=== PATIENT | male | born 1940 | race Hispanic/Latino ===

== ENCOUNTER 2017-11-18 17:20 | Emergency (ER) | payer MEDICARE, MEDICAID ==
[2017-11-18 17:21] VITALS: PULSE 120; BMI 15.3
[2017-11-18 17:32] VITALS: BP 95/56; PULSE 107; RESP 20; TEMP 97.8; O2SAT 100
--- NOTE | 2017-11-18 18:15 | C.PDOC ---
History Of Present Illness 77 y/o male, [place] the ER from [place], complaining of tenderness to the right heel. Patient was seen by podiatry and referred to [facility] ER for X- Ray. Patient reports that he has pain in his right heel when he stands for the past 3 days and the pain improves throughout the day. Patient denies having trauma. Time Seen by Provider: 11/18/17 17:38 Chief Complaint (Nursing): Lower Extremity Problem/Injury History Per: Patient History/Exam Limitations: no limitations Onset/Duration Of Symptoms: Days Current Symptoms Are (Timing): Still Present Severity: Moderate Past Medical History Vital Signs: Last Vital Signs Temp 97.8 F 11/18/17 17:23 Pulse 107 H 11/18/17 17:23 Resp 20 11/18/17 17:23 BP 95/56 L 11/18/17 17:23 Pulse Ox 100 11/18/17 18:15 - Medical History PMH: Atrial Fibrillation, CHF, COPD (emphysema (per CT/chest)), HTN, Hypothyroidism, Pulmonary Embolism Surgical History: Back Surgery, Tonsillectomy - [facility] Procedures ASSISTANCE WITH RESPIRATORY VENTILATION, 24-96 HRS, CPAP (10/10/15) DRAINAGE OF LEFT PLEURAL CAVITY, PERCUTANEOUS APPROACH (03/17/16) DRAINAGE OF RIGHT PLEURAL CAVITY, PERCUTANEOUS APPROACH (03/17/16) INSERTION OF ENDOTRACHEAL AIRWAY INTO TRACHEA, VIA OPENING (03/17/16) INTRODUCTION OF SERUM/TOX/VACCINE INTO MUSCLE, PERC APPROACH (03/17/16) PERFORMANCE OF CARDIAC OUTPUT, SINGLE, MANUAL (03/17/16) RESPIRATORY VENTILATION, 24-96 CONSECUTIVE HOURS (03/17/16) Family History: States: No Known Family Hx - Social History Hx Tobacco Use: Yes Hx Alcohol Use: Yes Hx Substance Use: No - Immunization History Hx Tetanus Toxoid Vaccination: No Hx Influenza Vaccination: No Hx Pneumococcal Vaccination: No Review Of Systems Except As Marked, All Systems Reviewed And Found Negative. Constitutional: Negative for: Fever, Chills Musculoskeletal: Positive for: Other (right heel pain) Physical Exam - Physical Exam Appears: Non-toxic, No Acute Distress Skin: Normal Color, Warm, Dry Head: Atraumatic, Normacephalic Eye(s): bilateral: Normal Inspection Nose: Normal Oral Mucosa: Moist Neck: Supple Chest: Symmetrical Cardiovascular: Rhythm Regular Respiratory: Normal Breath Sounds, No Rales, No Rhonchi, No Wheezing Extremity: Normal ROM, Tenderness (mild tenderness to right heel), Other ((-) edema to right heel) Pulses: Right Dorsalis Pedis: Normal Neurological/Psych: Oriented x3, Normal Speech ED Course And Treatment O2 Sat by Pulse Oximetry: 100 (RA) Pulse Ox Interpretation: Normal - Other Rad R heel X-Ray: Interpreted by Me (no fx/disloc) Reevaluation Time: 18:14 Reassessment Condition: Improved Medical Decision Making Medical Decision Making: normal R heel x-ray mild sts but NOT cellulitis ok to return to [place] Disposition Doctor Will See Patient In The: Office Counseled Patient/Family Regarding: Studies Performed, Diagnosis - Disposition Referrals: Mitchell Anderson MD [Staff Provider] - Disposition: HOME/ ROUTINE Disposition Time: 18:14 Condition: GOOD Additional Instructions: NORMAL R heel x-rays. ice packs 1/2 hour per hour as needed motrin/advil 400 mg every 6 hours as needed Follow-up with Podiatry as needed. Instructions: Heel Pain (Caused by Plantar Fasciitis) Forms: [employer] (Andorran) - Clinical Impression Clinical Impression: Pain of right heel - Scribe Statement The provider has reviewed the documentation as recorded by the Olivier Daly Provider Attestation: All medical record entries made by the Olivier were at my direction and personally dictated by me. I have reviewed the chart and agree that the record accurately reflects my personal performance of the history, physical exam, medical decision making, and the department course for this patient. I have also personally directed, reviewed, and agree with the discharge instructions and disposition.
--- NOTE | 2017-11-19 08:32 | RAD ---
PROCEDURE: Radiographs of the right calcaneus/hindfoot. HISTORY: R heel pain @ [facility]. no trauma COMPARISON: None available. TECHNIQUE: Frontal and lateral radiographs of the calcaneus. FINDINGS: Cortical discontinuity mid posterior calcaneus. Possible nondisplaced calcaneal fracture. This is only evident in the frontal view is not seen in the lateral projection. Consider further radiographic evaluation. No lytic or blastic osseous lesion. No calcaneal spur. IMPRESSION: Questionable nondisplaced calcaneal fracture. Consider further radiographic evaluation if clinically warranted.
== END 2017-11-18 21:01 | disposition home or self-care (01) ==
LOC: C.ER 17:20
DX: M79.671 Pain in right foot (principal)

== ENCOUNTER 2018-08-09 17:08 | Inpatient (IN) | payer MEDICARE, MEDICAID ==
[2018-08-09 17:10] VITALS: PULSE 120; BMI 15.3
[2018-08-09] MEDS ORDERED: Sodium Chloride 0.9% 500 ML IV ONE ×4 (17:36→18:39)
[2018-08-09 17:45] LABS: VENOUS BLOOD GAS BASE EXCESS -0.6 mmol/L (0.0-2.0); VENOUS BLOOD GAS PCO2 46 mmHg (40-60); VENOUS BLOOD GAS PO2 24 mm/Hg (30-55); VENOUS BLOOD PH 7.35 (7.32-7.43)
[2018-08-09] MEDS ORDERED: Vancomycin 1 GM 1 GM/250 ML BAG IV STA (17:46)
[2018-08-09] MEDS ORDERED: Cefepime 1 GM in Sodium Chloride 0.9% 50 ML IVPB ONE (17:47)
[2018-08-09] MEDS ORDERED: Vancomycin 1 GM 1 GM/250 ML BAG IVPB ONE (17:55)
--- NOTE | 2018-08-09 18:04 | C.PDOC ---
History Of Present Illness Patient sent from [place] for evaluation of left foot necrotic wound (left 2nd toe), apparently present for 4-5 days. Patient is c/o ingrown nail on first toe and very focused on this, denies any other issues or medical problems. He is a poor historian. PMHx - atrial fibrillation, PE, COPD, CHF, HTN, hypothyroidism Time Seen by Provider: 08/09/18 17:16 Chief Complaint (Nursing): Lower Extremity Problem/Injury History Per: Patient, Other ([place] records ) Past Medical History Reviewed: Historical Data, Nursing Documentation, Vital Signs Vital Signs: Last Vital Signs Temp 98.9 F 08/09/18 17:31 Pulse 138 H 08/09/18 17:31 Resp 22 08/09/18 17:31 BP 121/74 08/09/18 17:31 Pulse Ox 97 08/09/18 17:31 - Medical History PMH: Atrial Fibrillation, CHF, COPD (emphysema (per CT/chest)), HTN, Hypothyroidism, Pulmonary Embolism Surgical History: Back Surgery, Tonsillectomy - [facility] Procedures ASSISTANCE WITH RESPIRATORY VENTILATION, 24-96 HRS, CPAP (10/10/15) DRAINAGE OF LEFT PLEURAL CAVITY, PERCUTANEOUS APPROACH (03/17/16) DRAINAGE OF RIGHT PLEURAL CAVITY, PERCUTANEOUS APPROACH (03/17/16) INSERTION OF ENDOTRACHEAL AIRWAY INTO TRACHEA, VIA OPENING (03/17/16) INTRODUCTION OF SERUM/TOX/VACCINE INTO MUSCLE, PERC APPROACH (03/17/16) PERFORMANCE OF CARDIAC OUTPUT, SINGLE, MANUAL (03/17/16) RESPIRATORY VENTILATION, 24-96 CONSECUTIVE HOURS (03/17/16) Family History: States: No Known Family Hx - Social History Hx Tobacco Use: Yes Hx Alcohol Use: Yes Hx Substance Use: No - Immunization History Hx Tetanus Toxoid Vaccination: No Hx Influenza Vaccination: No Hx Pneumococcal Vaccination: No Physical Exam - Physical Exam Appears: Well, Non-toxic, Other (cranky mood, cachectic appearing ) Skin: Other (see extremity exam ) Head: Normacephalic Oral Mucosa: Moist Cardiovascular: Rhythm Irregular (tachycardic and irregularly irregular), No Murmur Respiratory: Normal Breath Sounds, No Rales, No Rhonchi, No Wheezing Gastrointestinal/Abdominal: Normal Exam, Bowel Sounds, Soft, No Tenderness Extremity: Other (left 2nd digit necrotic appearing and TTP, diffuse swelling and mild erythema of left foot, no palpable pedal pulses.) Pulses: Right Dorsalis Pedis: Absent Neurological/Psych: Oriented x3, Normal Sensation ED Course And Treatment - Laboratory Results Result Diagrams: 08/09/18 18:02 08/09/18 18:02 Lab Results: pO2 24 mm/Hg (30-55) L 08/09/18 17:40 VBG pH 7.35 (7.32-7.43) 08/09/18 17:40 VBG pCO2 46 mmHg (40-60) 08/09/18 17:40 VBG HCO3 22.9 mmol/L 08/09/18 17:40 VBG Total CO2 26.8 mmol/L (22-28) 08/09/18 17:40 VBG O2 Sat (Calc) 65.7 % (40-65) H 08/09/18 17:40 VBG Base Excess -0.6 mmol/L (0.0-2.0) L 08/09/18 17:40 VBG Potassium 4.9 mmol/L (3.6-5.2) 08/09/18 17:40 Sodium 133.0 mmol/l (132-148) 08/09/18 17:40 Chloride 100.0 mmol/L (98-107) 08/09/18 17:40 Glucose 127 mg/dl (75-110) H 08/09/18 17:40 Lactate 2.7 mmol/L (0.7-2.1) H 08/09/18 17:40 FiO2 21.0 % 08/09/18 17:40 ECG: Interpreted By Me, Viewed By Me (atrial fibrillation with RVR at 128bpm, normal axis, right axis deviation, T wave inversions III, aVF) ECG Interpretation: Abnormal O2 Sat by Pulse Oximetry: 97 (RA) Pulse Ox Interpretation: Normal Progress Note: Blood work, EKG, CXR, Xray of foot and CTA angio of abd/ileofem run off ordered. Patient given IV NS bolus, IV Vancomycin + Cefepime, PO tylenol. 6:45pm- Surgery resident spoken with and aware of consult. Patient pending CTA of abd with iliofem runoff. Reevaluation Time: 18:40 Reassessment Condition: Improved (Patient resting comfortably, heart rate improved, currently in 90s with IV fluids, pain medication.) - Physician Consult Information Physician Contacted: Mitchell Anderson Outcome Of Conversation: Spoke with PMD, patient has not had CTA angio of abd/leg yet - ordered. Would like Dr. Begum for vascular, Dr. Mcpherson for podiatry. Disposition - Disposition Disposition Time: 19:00 Condition: STABLE Forms: [employer] (Turkish) - Clinical Impression Clinical Impression: Skin ulcer of toe of left foot with necrosis of muscle
[2018-08-09 18:11] LABS: BASO # 0.1 K/uL (0.0-0.2); BASO % 0.6 % (0.0-2.0); EOS # 0.1 K/uL (0.0-0.7); EOS % 0.7 % (0.0-4.0); HEMOGLOBIN 11.2 g/dL (12.0-18.0); LYMPH # 1.6 K/uL (1.0-4.3); LYMPH % 17.9 % (20.0-40.0); MEAN CORPUSCULAR HGB CONC 32.6 g/dL (33.0-37.0); MEAN PLATELET VOLUME 7.7 fL (7.2-11.7); MONO # 0.7 K/uL (0.0-0.8); MONO % 7.5 % (0.0-10.0); NEUT # 6.5 K/uL (1.8-7.0); NEUT % 73.3 % (50.0-75.0); RBC 3.73 Mil/uL (4.40-5.90); RED CELL DISTRIBUTION WIDTH 16.1 % (11.5-14.5); WHITE BLOOD COUNT 8.9 K/uL (4.8-10.8)
[2018-08-09 18:17] LABS: INR 1.8; PROTHROMBIN TIME 19.9 SECONDS (9.7-12.2)
[2018-08-09 18:37] LABS: ALB/GLOB RATIO 1.2 (1.0-2.1); ALBUMIN 4.4 g/dL (3.5-5.0); AST/SGOT 25 U/L (17-59); BLOOD UREA NITROGEN 39 mg/dL (9-20); CALCIUM 10.4 mg/dl (8.6-10.4); GFR NON-AFRICAN AMERICAN 39
[2018-08-09 18:44] LABS: ALT/SGPT < 6 U/L (21-72)
[2018-08-09] MEDS ORDERED: Sodium Chloride 0.9% 1,000 ML IV ONE (20:29)
[2018-08-09] MEDS ORDERED: Iodixanol 320 mg/ml 150 ml Bottle IV ONE (20:34)
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
[2018-08-09] MEDS ORDERED: Sodium Chloride 0.9% 1,000 ML ONE (22:30)
[2018-08-09] MEDS ORDERED: Vancomycin 1 GM 1 GM/250 ML BAG IVPB STA (22:33)
[2018-08-09] MEDS ORDERED: Piperacillin/Tazobact 3.375 gm 100 ML IVPB STA (22:33)
[2018-08-09] MEDS ORDERED: oxyCODONE 10 mg ER Tab (oxyCONTIN) PO PRN (23:25)
[2018-08-09] MEDS ORDERED: Albuterol-Ipratrop 3 mg / 0.5 (3 ml) UD INH PRN (23:25)
--- NOTE | 2018-08-09 23:27 | CP.PCM.HP ---
History of Present Illness - History of Present Illness History of Present Illness: 78 year old male patient with PMH of A.fib, CHF, COPD, HTN, hypothyroidism and pulmonary embolism and surgical history of tonsillectomy. patient is sent from the [place] for evaluation of necrotic foot on 2nd left toe since 4-5 days with com plaint of ingrown toe nail on the first toe. patient did not give any other history. Present on Admission - Present on Admission Any Indicators Present on Admission: No Past Patient History - Infectious Disease Hx of Infectious Diseases: None - Past Medical History & Family History Past Medical History?: Yes - Past Social History Smoking Status: Light Smoker < 10 Cigarettes Daily - CARDIAC Hx Atrial Fibrillation: Yes Hx Congestive Heart Failure: Yes Hx Hypertension: Yes - PULMONARY Hx Chronic Obstructive Pulmonary Disease (COPD): Yes (emphysema (per CT/chest)) Hx Pulmonary Embolism: Yes - ENDOCRINE/METABOLIC Hx Hypothyroidism: Yes - MUSCULOSKELETAL/RHEUMATOLOGICAL Hx Falls: Yes - PSYCHIATRIC Hx Substance Use: No - SURGICAL HISTORY Hx Tonsillectomy: Yes - ANESTHESIA Hx Anesthesia: No Meds Home Medications: Home Medication List Medication Instructions Recorded Confirmed Type Docusate [Colace] 100 mg PO DAILY cap 08/16/18 Rx Famotidine [Pepcid] 20 mg PO DAILY tab 08/16/18 Rx Gabapentin [Neurontin] 100 mg PO BID cap 08/16/18 Rx Lactobacillus Acidophilus 1 cap PO BID cap 08/16/18 Rx [Lactobacillus] Levothyroxine [Synthroid] 75 mcg PO DAILY@0630 tab 08/16/18 Rx Magnesium Hydroxide [Milk Of 30 ml PO HS PRN udc 08/16/18 Rx Magnesia] Multivitamins [Hexavitamin] 1 tab PO DAILY tab 08/16/18 Rx Piperacillin/Tazobact 3.375 gm 3.375 gm IVPB Q8 #15 bag 08/16/18 Rx [Zosyn 3.375 in NS 100ml] Spironolactone [Aldactone] 50 mg PO DAILY tab 08/16/18 Rx Allergies/Adverse Reactions: Allergies Allergy/AdvReac Type Severity Reaction Status Date / Time No Known Allergies Allergy Verified 07/07/18 14:41 Results - Vital Signs Recent Vital Signs: Last Vital Signs Temp 98.9 F 08/09/18 17:31 Pulse 114 H 08/09/18 22:46 Resp 22 08/09/18 17:31 BP 110/40 L 08/09/18 22:46 Pulse Ox 96 08/09/18 22:46 - Labs Result Diagrams: 08/14/18 07:52 08/14/18 07:52 Labs: Laboratory Results - last 24 hr 08/09/18 08/09/18 08/09/18 17:40 17:43 18:00 WBC RBC Hgb Hct MCV MCH MCHC RDW Plt Count MPV Neut % (Auto) Lymph % (Auto) [place] % (Auto) Eos % (Auto) Baso % (Auto) Neut # (Auto) Lymph # (Auto) [place] # (Auto) Eos # (Auto) Baso # (Auto) PT INR APTT pO2 24 L VBG pH 7.35 VBG pCO2 46 VBG HCO3 22.9 VBG Total CO2 26.8 VBG O2 Sat (Calc) 65.7 H VBG Base Excess -0.6 L VBG Potassium 4.9 Sodium 133.0 Chloride 100.0 Glucose 127 H Lactate 2.7 H FiO2 21.0 Potassium Carbon Dioxide Anion Gap BUN Creatinine Est GFR ( Amer) Est GFR (Non-Af Amer) POC Glucose (mg/dL) 166 H Random Glucose Calcium Total Bilirubin AST ALT Alkaline Phosphatase Troponin I Total Protein Albumin Globulin Albumin/Globulin Ratio TSH 3rd Generation 1.10 Venous Blood Potassium 4.9 08/09/18 08/09/18 08/09/18 18:02 18:02 18:02 WBC 8.9 RBC 3.73 L Hgb 11.2 L Hct 34.3 L MCV 92.0 D MCH 30.0 MCHC 32.6 L RDW 16.1 H Plt Count 365 D MPV 7.7 Neut % (Auto) 73.3 Lymph % (Auto) 17.9 L [place] % (Auto) 7.5 Eos % (Auto) 0.7 Baso % (Auto) 0.6 Neut # (Auto) 6.5 Lymph # (Auto) 1.6 [place] # (Auto) 0.7 Eos # (Auto) 0.1 Baso # (Auto) 0.1 PT 19.9 H INR 1.8 APTT 37 H pO2 VBG pH VBG pCO2 VBG HCO3 VBG Total CO2 VBG O2 Sat (Calc) VBG Base Excess VBG Potassium Sodium 130 L Chloride 97 L Glucose Lactate FiO2 Potassium 4.9 Carbon Dioxide 24 Anion Gap 14 BUN 39 H Creatinine 1.7 H Est GFR ( Amer) 48 Est GFR (Non-Af Amer) 39 POC Glucose (mg/dL) Random Glucose 118 H D Calcium 10.4 Total Bilirubin 0.9 AST 25 ALT < 6 L D Alkaline Phosphatase 111 Troponin I < 0.0120 Total Protein 8.1 Albumin 4.4 Globulin 3.7 Albumin/Globulin Ratio 1.2 TSH 3rd Generation Venous Blood Potassium
[2018-08-09] MEDS ORDERED: Magnesium Hydroxide Susp 30 ml UD PO SCH (23:30)
[2018-08-10 00:01] LABS: VENOUS BLOOD GAS BASE EXCESS -4.8 mmol/L (0.0-2.0); VENOUS BLOOD GAS PCO2 44 mmHg (40-60); VENOUS BLOOD GAS PO2 31 mm/Hg (30-55)
[2018-08-10] MEDS: oxyCODONE 10 mg Immediate Release Tab PO PRN ×3 (00:34→11:15)
[2018-08-10] MEDS: Levothyroxine 75 MCG TAB PO SCH (06:07)
--- NOTE | 2018-08-10 07:55 | CP.PCM.PN ---
Subjective - Date & Time of Evaluation Date of Evaluation: 08/10/18 Time of Evaluation: 08:00 - Subjective Subjective: Surgery progress note for Dr. Begum Patient seen and examined at bedside. No overnight events reported. Objective - Vital Signs/Intake and Output Vital Signs (last 24 hours): Temp Pulse Resp BP Pulse Ox 97.3 F L 84 20 111/51 L 98 08/10/18 00:43 08/10/18 00:43 08/10/18 00:43 08/10/18 00:43 08/10/18 00:43 - Medications Medications: Current Medications Albuterol/Ipratropium (Duoneb 3 Mg/0.5 Mg (3 Ml) Ud) 3 ml INH Q6 PRN PRN Reason: Shortness of Breath Docusate Sodium (Colace) 1 mg PO DAILY [facility] Enoxaparin Sodium (Lovenox) 40 mg SC DAILY [facility] Famotidine (Pepcid) 20 mg PO BID [facility] Gabapentin (Neurontin) 100 mg PO BID [facility] Cefepime HCl 1 gm/ Dextrose 50 mls @ 100 mls/hr IVPB Q12H [facility]; Protocol Last Admin: 08/10/18 06:08 Dose: 100 mls/hr Vancomycin HCl 1 gm/ Sodium (Chloride) 250 mls @ 167 mls/hr IVPB Q24H [facility]; Protocol Levothyroxine Sodium (Synthroid) 75 mcg PO DAILY@0630 [facility] Last Admin: 08/10/18 06:07 Dose: 75 mcg Magnesium Hydroxide (Milk Of Magnesia) 30 ml PO Q24H [facility] Last Admin: 08/10/18 00:34 Dose: 30 ml Multivitamins (Hexavitamin) 1 tab PO DAILY [facility] Oxycodone HCl (Oxycodone Immediate Release Tab) 10 mg PO Q4H PRN PRN Reason: Pain, moderate (4-7) Last Admin: 08/10/18 05:53 Dose: 10 mg Oxycodone HCl (Oxycontin Extended Release Tab) 10 mg PO Q12 PRN PRN Reason: Pain, moderate (4-7) Stop: 08/12/18 23:26 Spironolactone (Aldactone) 50 mg PO DAILY [facility] - Labs Labs: 08/09/18 18:02 08/09/18 18:02 PT 19.9 SECONDS (9.7-12.2) H 08/09/18 18:02 INR 1.8 08/09/18 18:02 APTT 37 SECONDS (21-34) H 08/09/18 18:02 - Constitutional Appears: No Acute Distress - Head Exam Head Exam: NORMAL INSPECTION - Eye Exam Eye Exam: Normal appearance - Respiratory Exam Respiratory Exam: NORMAL BREATHING PATTERN - Cardiovascular Exam Additional comments: Irregular rate - GI/Abdominal Exam GI & Abdominal Exam: Soft, Normal Bowel Sounds. absent: Tenderness, Hyperactive Bowel Sounds - Extremities Exam Additional comments: DP pulses palpable b/l PT pulses not palpable dressing currently over L foot, clean, dry intact - Neurological Exam Neurological Exam: Alert, Awake, Oriented x3 - Psychiatric Exam Psychiatric exam: Normal Affect, Normal Mood - Skin Skin Exam: Dry, Normal Color, Warm Assessment and Plan - Assessment and Plan (Free Text) Assessment: 78yo M with PMHx of A fib, PE, UTI [facility] of left 2nd toe gangrene Plan: - CTA: multiple sections of stenosis on b/l LE - will discuss w/ patient of benefits/risk of angio vs AKA - d/w Dr. Kel Gee, PGY1
--- NOTE | 2018-08-10 08:13 | RAD ---
Date of service: 08/09/2018 HISTORY: admission COMPARISON: Portable chest 10/24/2015. FINDINGS: LUNGS: No acute consolidation bilaterally. PLEURA: Minimal residual or recurrent pleural effusions versus fibrosis at the bilateral costophrenic sulci. CARDIOVASCULAR: Calcific atherosclerotic changes are seen related to the thoracic aorta. Normal cardiac size. No pulmonary vascular congestion. OSSEOUS STRUCTURES: No significant abnormalities. VISUALIZED UPPER ABDOMEN: Normal. OTHER FINDINGS: None. IMPRESSION: Minimal bilateral pleural effusions versus fibrosis at both bases. No acute consolidation bilaterally. No pulmonary vascular congestion.
--- NOTE | 2018-08-10 08:20 | RAD ---
Date of service: 08/09/2018 PROCEDURE: Left Foot Radiographs. HISTORY: LEFT FOOT NECROTIC WOUND COMPARISON: None. FINDINGS: BONES: No acute fracture or destructive bony lesion identified. JOINTS: No subluxation. No dislocation. Degenerative cortical sclerosis appreciate throughout the joints of the forefoot midfoot and hindfoot, seen worst at the 1st metatarsophalangeal joint. SOFT TISSUES: Ossification of the insertion of the Achilles tendon is seen posterior to the calcaneus. [id number]-[id number] soft edema is seen in the forefoot dorsal soft tissues. OTHER FINDINGS: None. IMPRESSION: [id number] dorsal forefoot soft tissue edema. No acute fracture or dislocation. Degenerative joint changes seen throughout the left foot diffusely.
[2018-08-10] MEDS ORDERED: Enoxaparin 40 mg Syringe SC SCH (10:00)
[2018-08-10] MEDS: Multiple Vitamins Tab PO SCH (11:14)
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
--- NOTE | 2018-08-10 13:35 | CT ---
Date of service: 08/09/2018 PROCEDURE: CT Angiography Abdomen, Pelvis and Lower Extremity with Contrast HISTORY: LEFT FOOT NECROTIC WOUND COMPARISON: None available. TECHNIQUE: Technique: CT angiography of the abdomen, pelvis and bilateral lower extremities performed in the arterial phase of enhancement. Coronal and sagittal reformats, and well as rotating MIP images of the vessels generated at the workstation. Intravenous contrast dose: 150 milliliters Visipaque 320 Radiation dose: Total exam DLP = 925.07 mGy-cm. This CT exam was performed using one or more of the following dose reduction techniques: Automated exposure control, adjustment of the mA and/or kV according to patient size, and/or use of iterative reconstruction technique. FINDINGS: CT ANGIOGRAPHY: ABDOMINAL AORTA:: Moderate calcific plaque in the abdominal aorta without aneurysm or stenosis. MAJOR AORTIC BRANCHES: Celiac [place]: Calcific plaque at the origin of the celiac artery with possible moderate stenosis. Superior mesenteric artery: Calcific plaque at the origin of the SMA with possible moderate stenosis. Inferior mesenteric artery: Unremarkable. Renal arteries: To severe calcific plaque at the origin of right and left renal arteries. Unable to fully assess any possible stenosis of the renal arteries. There is an accessory right renal artery. PELVIC ARTERIES: Right Common Iliac: Moderate calcific plaque in the common iliac artery without stenosis. Right External Iliac: Severe calcific plaque in the external iliac artery with moderate stenosis. Right Internal Iliac: And calcified. Left Common Iliac: Severe calcific plaque in the left common iliac artery with moderate proximal iliac artery stenosis. Left External Iliac: Partially thrombosed left external iliac artery with soft plaque seen in distal external iliac artery. Left Internal Iliac: Severely calcified. RIGHT LOWER EXTREMITY ARTERIES: Right Common Femoral: Severe calcific plaque with moderate stenosis. Right Superficial Femoral: Severe calcific plaque and multiple areas of severe stenosis or short segment occlusion throughout the SFA. Right Profunda Femoris: Unremarkable. Right Popliteal:Flow is seen within popliteal artery with moderate stenosis. Right Anterior Tibial: Unremarkable. Right Tibioperoneal Trunk: Unremarkable. Right Posterior Tibial: Moderate calcific plaque but otherwise appears unremarkable. Right Peroneal: Unremarkable. Right dorsalis pedis : Unremarkable. LEFT LOWER EXTREMITY ARTERIES: Left Common Femoral: Severe calcific plaque and moderate stenosis. Left Superficial Femoral: Occlusion of the SFA with reconstitution of popliteal artery. Severe calcific plaque. Left Profunda Femoris: Unremarkable. Left Popliteal: Stenosis. Left Anterior Tibial: Unremarkable. Left Tibioperoneal Trunk: Unremarkable. Left Posterior Tibial: Stenosis or occlusion of the mid and distal posterior tibial artery. Left Peroneal: Unremarkable. Left Dorsalis pedis: Unremarkable. NON-ANGIOGRAPHIC ASPECT OF THE EXAM: LOWER THORAX: Unremarkable. LIVER: Sub centimeter hypodense lesion within the right hepatic lobe too small to characterize. No gross lesion or ductal dilatation. GALLBLADDER AND BILE DUCTS: Unremarkable. PANCREAS: Unremarkable. No gross lesion or ductal dilatation. SPLEEN: Unremarkable. ADRENALS: Unremarkable. No mass. KIDNEYS AND URETERS: Unremarkable. No hydronephrosis. No solid mass. STOMACH AND BOWEL: Very limited evaluation without PO contrast and a paucity of mesenteric fat. No obvious mass. APPENDIX: Visualized. PERITONEUM: Unremarkable. No free fluid. No free air. LYMPH NODES: Unremarkable. No enlarged lymph nodes. BLADDER: Unremarkable. REPRODUCTIVE: BONES: No acute fracture. OTHER FINDINGS: None. IMPRESSION: CT ANGIOGRAM ABDOMEN/PELVIS: 1. Moderate calcific plaque in the aorta without aneurysm or stenosis. 2. There is moderate stenosis of the proximal left common iliac artery with severe calcific plaque of the common iliac artery. 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 The distal external iliac artery has soft plaque which may represent acute thrombus. 3. Moderate calcific plaque of the right common iliac artery without significant stenosis. There is moderate stenosis of right external iliac artery. LEFT LOWER EXTREMITY CT ANGIOGRAM: 1. Severe calcific plaque of the common femoral artery with severe stenosis. 2. Occlusion of the left SFA with reconstituted popliteal artery. There is severe calcific throughout the SFA. 3. Moderate stenosis of the popliteal artery. 4. Runoff shows patent anterior tibial artery and peroneal artery. Posterior tibial is severely stenotic or occluded in the mid and distal segments. RIGHT LOWER EXTREMITY CT ANGIOGRAM: 1. Severe calcific plaque of the common femoral artery with moderate stenosis. 2. Severe calcific throughout the SFA with multiple areas of severe stenosis and short segment occlusion throughout the SFA. 3. Moderate stenosis of popliteal artery. 4. Patent 3 vessel.
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
--- NOTE | 2018-08-10 19:22 | CP.PCM.PN ---
Subjective - Date & Time of Evaluation Date of Evaluation: 08/10/18 Time of Evaluation: 08:30 - Subjective Subjective: clinically same Objective - Vital Signs/Intake and Output Vital Signs (last 24 hours): Temp Pulse Resp BP Pulse Ox 97.3 F L 100 H 20 123/65 96 08/10/18 16:31 08/10/18 16:31 08/10/18 16:31 08/10/18 16:31 08/10/18 16:31 Intake and Output: 08/10/18 08/11/18 18:59 06:59 Intake Total 800 Balance 800 - Medications Medications: Current Medications Albuterol/Ipratropium (Duoneb 3 Mg/0.5 Mg (3 Ml) Ud) 3 ml INH Q6 PRN PRN Reason: Shortness of Breath Docusate Sodium (Colace) 100 mg PO DAILY [facility] Enoxaparin Sodium (Lovenox) 30 mg SC DAILY [facility] Famotidine (Pepcid) 20 mg PO DAILY [facility] Gabapentin (Neurontin) 100 mg PO BID [facility] Last Admin: 08/10/18 17:20 Dose: 100 mg Cefepime HCl 1 gm/ Dextrose 50 mls @ 100 mls/hr IVPB Q12H [facility]; Protocol Last Admin: 08/10/18 19:17 Dose: 100 mls/hr Vancomycin HCl 1 gm/ Sodium (Chloride) 250 mls @ 167 mls/hr IVPB Q24H [facility]; Pr otocol Last Admin: 08/10/18 17:19 Dose: 167 mls/hr Levothyroxine Sodium (Synthroid) 75 mcg PO DAILY@0630 [facility] Last Admin: 08/10/18 06:07 Dose: 75 mcg Magnesium Hydroxide (Milk Of Magnesia) 30 ml PO Q24H [facility] Last Admin: 08/10/18 00:34 Dose: 30 ml Multivitamins (Hexavitamin) 1 tab PO DAILY [facility] Last Admin: 08/10/18 11:14 Dose: 1 tab Oxycodone HCl (Oxycodone Immediate Release Tab) 10 mg PO Q4H PRN PRN Reason: Pain, moderate (4-7) Last Admin: 08/10/18 11:15 Dose: 10 mg Spironolactone (Aldactone) 50 mg PO DAILY [facility] Last Admin: 08/10/18 11:14 Dose: 50 mg - Labs Labs: 08/09/18 18:02 08/09/18 18:02 PT 19.9 SECONDS (9.7-12.2) H 08/09/18 18:02 INR 1.8 08/09/18 18:02 APTT 37 SECONDS (21-34) H 08/09/18 18:02 - Constitutional Appears: Well - Head Exam Head Exam: ATRAUMATIC, NORMAL INSPECTION, NORMOCEPHALIC - Eye Exam Eye Exam: EOMI, Normal appearance, PERRL Pupil Exam: NORMAL ACCOMODATION, PERRL - ENT Exam ENT Exam: Mucous Membranes Moist, Normal Exam - Neck Exam Neck Exam: Full ROM, Normal Inspection. absent: Lymphadenopathy - Respiratory Exam Respiratory Exam: Decreased Breath Sounds - Cardiovascular Exam Cardiovascular Exam: REGULAR RHYTHM, +S1, +S2 - GI/Abdominal Exam GI & Abdominal Exam: Soft, Diminished Bowel Sounds - Rectal Exam Rectal Exam: Deferred
[2018-08-10] MEDS: Magnesium Hydroxide Susp 30 ml UD PO SCH (21:11)
[2018-08-11] MEDS: oxyCODONE 10 mg Immediate Release Tab PO PRN ×2 (03:22→13:15)
[2018-08-11] MEDS: Levothyroxine 75 MCG TAB PO SCH (06:08)
[2018-08-11] MEDS: Multiple Vitamins Tab PO SCH (10:57)
[2018-08-11] MEDS: Enoxaparin 30 mg Syringe SC SCH (10:58)
--- NOTE | 2018-08-11 12:03 | CP.PCM.PN ---
Subjective - Date & Time of Evaluation Date of Evaluation: 08/11/18 Time of Evaluation: 12:00 - Subjective Subjective: Podiatry Progress Note: Dr. Mcpherson 78 year old male was seen and evaluated at bedside for left foot 2nd digit gangrene and wound in the 4th interspace. Patient is AAOX3. Denies of any acute overnight events and denies of any pain today. Patient is very aggressive this morning and demands to perform nail avulsion of the big toe. Patient explained due to poor circulation it is not recommended and patient became combative and threaten to leave AMA. Objective - Vital Signs/Intake and Output Vital Signs (last 24 hours): Temp Pulse Resp BP Pulse Ox 97.3 F L 92 H 20 112/67 96 08/11/18 08:15 08/11/18 08:15 08/11/18 08:15 08/11/18 08:15 08/11/18 08:15 Intake and Output: 08/11/18 08/11/18 06:59 18:59 Intake Total 990 Output Total 300 Balance 690 - Medications Medications: Current Medications Albuterol/Ipratropium (Duoneb 3 Mg/0.5 Mg (3 Ml) Ud) 3 ml INH Q6 PRN PRN Reason: Shortness of Breath Docusate Sodium (Colace) 100 mg PO DAILY [facility] Last Admin: 08/11/18 10:57 Dose: 100 mg Enoxaparin Sodium (Lovenox) 30 mg SC DAILY [facility] Last Admin: 08/11/18 10:58 Dose: 30 mg Famotidine (Pepcid) 20 mg PO DAILY [facility] Last Admin: 08/11/18 10:58 Dose: 20 mg Gabapentin (Neurontin) 100 mg PO BID [facility] Last Admin: 08/11/18 10:58 Dose: 100 mg Cefepime HCl 1 gm/ Dextrose 50 mls @ 100 mls/hr IVPB Q12H [facility]; Protocol Last Admin: 08/11/18 06:08 Dose: 100 mls/hr Vancomycin HCl 1 gm/ Sodium (Chloride) 250 mls @ 167 mls/hr IVPB Q24H [facility]; Protocol Last Admin: 08/10/18 17:19 Dose: 167 mls/hr Levothyroxine Sodium (Synthroid) 75 mcg PO DAILY@0630 [facility] Last Admin: 08/11/18 06:08 Dose: 75 mcg Magnesium Hydroxide (Milk Of Magnesia) 30 ml PO HS [facility] Last Admin: 08/10/18 21:11 Dose: 30 ml Multivitamins (Hexavitamin) 1 tab PO DAILY [facility] Last Admin: 08/11/18 10:57 Dose: 1 tab Oxycodone HCl (Oxycodone Immediate Release Tab) 10 mg PO Q4H PRN PRN Reason: Pain, moderate (4-7) Last Admin: 08/11/18 03:22 Dose: 10 mg Spironolactone (Aldactone) 50 mg PO DAILY [facility] Last Admin: 08/11/18 10:58 Dose: 50 mg - Labs Labs: 08/09/18 18:02 08/09/18 18:02 PT 19.9 SECONDS (9.7-12.2) H 08/09/18 18:02 INR 1.8 08/09/18 18:02 APTT 37 SECONDS (21-34) H 08/09/18 18:02 - Constitutional Appears: Well, Non-toxic, No Acute Distress - Extremities Exam Additional comments: Bilateral LE exam: VASC: DP pulses are very faintly palpable, PT pulses are non-palpable, Cap refill time: slightly delayed at approx 3 sec, Temp gradient: warm to cool from proximal to distal, mild non-pitting edema noted localized to the left foot/ankle accompanied with erythema DERM: Dry hyperpigmented eschar noted on the dorsal aspect of the left 2nd digit with necrotic changes, interdigital maceration noted in the 4th interspace on the left with medial aspect of the 5th digit fully macerated with epidermal and dermal lysis, no active drainage, no malodor, erythema extending distal to the ankle joint, no probe to bone, no tunneling, no undermining, nails are hyp erkeratotic and discolored and fully attached to the nail bed, no signs of ingrowing noted on the hallux NEURO: Protective sensation mildly diminished ORTHO: pain on palpation of the left 5th digit wound, no pain during AROM of the digits of the left foot - Neurological Exam Neurological Exam: Alert, Awake, Oriented x3 - Psychiatric Exam Psychiatric exam: Normal Affect, Normal Mood Assessment and Plan - Assessment and Plan (Free Text) Assessment: 78 year old male evaluated for left foot 2nd digit gangrene and wound in the 4th interspace Plan: Patient seen and evaluated Discussed plan with attending Dr. Mcpherson Labs, vitals and charts reviewed - VSS, absent leukocytosis as of 08/09 X-rays reviewed: no acute fractures or dislocations, no soft tissue emphysema, no evidence of OM Wound culture: G - rods, G + cocci - Continue abx as per ID Vascular on board - CTA performed, severe calcifications in b/l LE vessels - AKA vs. Angio Unable to perform dressing change Educated patient of the importance of not performing nail avulsion - disregarded recs Patient to WBAT in surgical shoe No plan for surgical intervention at this time - will treat conservatively Podiatry to follow patient while in-house
--- NOTE | 2018-08-11 12:12 | CP.PCM.PN ---
Objective - Vital Signs/Intake and Output Vital Signs (last 24 hours): Temp Pulse Resp BP Pulse Ox 97.3 F L 92 H 20 112/67 96 08/11/18 08:15 08/11/18 08:15 08/11/18 08:15 08/11/18 08:15 08/11/18 08:15 Intake and Output: 08/11/18 08/11/18 06:59 18:59 Intake Total 990 Output Total 300 Balance 690 - Medications Medications: Current Medications Albuterol/Ipratropium (Duoneb 3 Mg/0.5 Mg (3 Ml) Ud) 3 ml INH Q6 PRN PRN Reason: Shortness of Breath Docusate Sodium (Colace) 100 mg PO DAILY [facility] Last Admin: 08/11/18 10:57 Dose: 100 mg Enoxaparin Sodium (Lovenox) 30 mg SC DAILY [facility] Last Admin: 08/11/18 10:58 Dose: 30 mg Famotidine (Pepcid) 20 mg PO DAILY [facility] Last Admin: 08/11/18 10:58 Dose: 20 mg Gabapentin (Neurontin) 100 mg PO BID [facility] Last Admin: 08/11/18 10:58 Dose: 100 mg Cefepime HCl 1 gm/ Dextrose 50 mls @ 100 mls/hr IVPB Q12H [facility]; Protocol Last Admin: 08/11/18 06:08 Dose: 100 mls/hr Vancomycin HCl 1 gm/ Sodium (Chloride) 250 mls @ 167 mls/hr IVPB Q24H [facility]; Protocol Last Admin: 08/10/18 17:19 Dose: 167 mls/hr Levothyroxine Sodium (Synthroid) 75 mcg PO DAILY@0630 [facility] Last Admin: 08/11/18 06:08 Dose: 75 mcg Magnesium Hydroxide (Milk Of Magnesia) 30 ml PO HS [facility] Last Admin: 08/10/18 21:11 Dose: 30 ml Multivitamins (Hexavitamin) 1 tab PO DAILY [facility] Last Admin: 08/11/18 10:57 Dose: 1 tab Oxycodone HCl (Oxycodone Immediate Release Tab) 10 mg PO Q4H PRN PRN Reason: Pain, moderate (4-7) Last Admin: 08/11/18 03:22 Dose: 10 mg Spironolactone (Aldactone) 50 mg PO DAILY [facility] Last Admin: 08/11/18 10:58 Dose: 50 mg - Labs Labs: 08/09/18 18:02 08/09/18 18:02 PT 19.9 SECONDS (9.7-12.2) H 08/09/18 18:02 INR 1.8 08/09/18 18:02 APTT 37 SECONDS (21-34) H 08/09/18 18:02
--- NOTE | 2018-08-11 13:56 | CP.PCM.PN ---
Subjective - Date & Time of Evaluation Date of Evaluation: 08/11/18 Time of Evaluation: 09:20 - Subjective Subjective: Medicine progress note ( Dr. Shawn Anderson's service) Patient was seen and examined at bedside as he was resting him bed. Patient is moderately agitated regarding possible management of his left foot. Patient reports that he does not want to argue about course of management and wants to go back to his shelter. During the encounter, it was explained to patient the necessity for such medical management, but he refuses at the moment. As part of his medical team, I am not sure patient has the appropriate capacity based on his responses, therefore, will consider psychiatry consult. Objective - Vital Signs/Intake and Output Vital Signs (last 24 hours): Temp Pulse Resp BP Pulse Ox 97.3 F L 92 H 20 112/67 96 08/11/18 08:15 08/11/18 08:15 08/11/18 08:15 08/11/18 08:15 08/11/18 08:15 Intake and Output: 08/11/18 08/11/18 06:59 18:59 Intake Total 990 Output Total 300 Balance 690 - Medications Medications: Current Medications Albuterol/Ipratropium (Duoneb 3 Mg/0.5 Mg (3 Ml) Ud) 3 ml INH Q6 PRN PRN Reason: Shortness of Breath Docusate Sodium (Colace) 100 mg PO DAILY [facility] Last Admin: 08/11/18 10:57 Dose: 100 mg Enoxaparin Sodium (Lovenox) 30 mg SC DAILY [facility] Last Admin: 08/11/18 10:58 Dose: 30 mg Famotidine (Pepcid) 20 mg PO DAILY [facility] Last Admin: 08/11/18 10:58 Dose: 20 mg Gabapentin (Neurontin) 100 mg PO BID [facility] Last Admin: 08/11/18 10:58 Dose: 100 mg Cefepime HCl 1 gm/ Dextrose 50 mls @ 100 mls/hr IVPB Q12H [facility]; Protocol Last Admin: 08/11/18 06:08 Dose: 100 mls/hr Vancomycin HCl 1 gm/ Sodium (Chloride) 250 mls @ 167 mls/hr IVPB Q24H [facility]; Protocol Last Admin: 08/10/18 17:19 Dose: 167 mls/hr Levothyroxine Sodium (Synthroid) 75 mcg PO DAILY@0630 [facility] Last Admin: 08/11/18 06:08 Dose: 75 mcg Magnesium Hydroxide (Milk Of Magnesia) 30 ml PO HS [facility] Last Admin: 08/10/18 21:11 Dose: 30 ml Multivitamins (Hexavitamin) 1 tab PO DAILY [facility] Last Admin: 08/11/18 10:57 Dose: 1 tab Oxycodone HCl (Oxycodone Immediate Release Tab) 10 mg PO Q4H PRN PRN Reason: Pain, moderate (4-7) Last Admin: 08/11/18 13:15 Dose: 10 mg Spironolactone (Aldactone) 50 mg PO DAILY [facility] Last Admin: 08/11/18 10:58 Dose: 50 mg - Labs Labs: 08/09/18 18:02 08/09/18 18:02 PT 19.9 SECONDS (9.7-12.2) H 08/09/18 18:02 INR 1.8 08/09/18 18:02 APTT 37 SECONDS (21-34) H 08/09/18 18:02 - Constitutional Appears: No Acute Distress - Head Exam Head Exam: ATRAUMATIC, NORMAL INSPECTION - Eye Exam Eye Exam: EOMI - ENT Exam ENT Exam: Mucous Membranes Moist - Respiratory Exam Respiratory Exam: Clear to Ausculation Bilateral, NORMAL BREATHING PATTERN. absent: Prolonged Expiratory Phase, Rhonchi, Wheezes, Respiratory Distress - Cardiovascular Exam Cardiovascular Exam: REGULAR RHYTHM, +S1, +S2 - GI/Abdominal Exam GI & Abdominal Exam: Soft, Normal Bowel Sounds. absent: Firm, Guarding, Rigid, Tenderness - Extremities Exam Additional comments: Left foot - 2nd toe eschar on superior portion. Erythema (boarder drawn) Challenging to hear DP/PT pulses via doppler - Neurological Exam Neurological Exam: Alert, Awake - Psychiatric Exam Psychiatric exam: Normal Affect - Skin Skin Exam: Normal Color Assessment and Plan (1) Gangrene of toe of left foot Assessment & Plan: left foot 2nd digit gangrene and wound in the 4th interspace. Consultations: Podiatry consulted, Dr. Mcpherson * No surgical intervention at this time Vascular Surgery consulted, Dr. Begum * Currently, patient refuses amputation, there will reconsult vascular team if patient changes his mind. Will consult psych for capacity to ensure that patient is making appropriate decision ID consulted, Dr. Moctezuma * Follow up recommendation Psych, Dr. Man * Evaluation for decision-making capacity Imaging: Abdominal CTA w/run-off 08/09/18: * CT ANGIOGRAM ABDOMEN/PELVIS: * 1. Moderate calcific plaque in the aorta without aneurysm or stenosis. * 2. There is moderate stenosis of the proximal left common iliac artery with severe calcific plaque of the common iliac artery. 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 The distal external iliac artery has soft plaque which may represent acute thrombus. * 3. Moderate calcific plaque of the right common iliac artery without significant stenosis. There is moderate stenosis of right external iliac artery. * LEFT LOWER EXTREMITY CT ANGIOGRAM: * 1. Severe calcific plaque of the common femoral artery with severe stenosis. * 2. Occlusion of the left SFA with reconstituted popliteal artery. There is severe calcific throughout the SFA. * 3. Moderate stenosis of the popliteal artery. * 4. Runoff shows patent anterior tibial artery and peroneal artery. Posterior tibial is severely stenotic or occluded in the mid and distal segments. * RIGHT LOWER EXTREMITY CT ANGIOGRAM: * 1. Severe calcific plaque of the common femoral artery with moderate stenosis. * 2. Severe calcific throughout the SFA with multiple areas of severe stenosis and short segment occlusion throughout the SFA. * 3. Moderate stenosis of popliteal artery. * 4. Patent 3 vessel. Left Foot X-Ray (08/09/18): * Syqu-[id number] dorsal forefoot soft tissue edema. No acute fracture or dislocation. Degenerative joint changes seen throughout the left foot diffusely. Labs/Vitals: - Afebrile, with elevated WBC - Wound Culture: Gram negative chrissy and Gram positive cocci (08/10/18) - Blood Culture negative X 24 hours Management: * Oxycodone 10mg PO q4h prn * Gabapentin 100mg PO BID * Cefepime 1gm IVPB q12h, started 08/10/18 * Vancomycin 1gm IVPB q24h-->started 08/10/18; switched to Q12 (08/11/18) * Lactobacillus 1 tab PO BID Status: Acute (2) History of CHF (congestive heart failure) Assessment & Plan: Spironolactone 50mg PO daily Status: Acute (3) Hypertension Assessment & Plan: Spironolactone 50mg PO daily Status: Acute (4) History of COPD Assessment & Plan: Not in acute exacerbation Duonebs 3mL INH q6h prn for shortness of breath Status: Acute (5) Hypothyroidism Assessment & Plan: Levothyroxine 75mcg PO daily Status: Acute (6) Constipation Assessment & Plan: Milk of Mag q24h [facility] Colace 100mg PO daily Status: Acute (7) Prophylactic measure Assessment & Plan: DVT: Lovenox 30mg SC daily GI: Pepcid 20mg PO daily Multivitamins 1 tab PO daily All medical management as per Dr. Jaime Anderson Status: Acute
--- NOTE | 2018-08-11 13:56 | CP.PCM.CON ---
History of Present Illness - History of Present Illness History of Present Illness: dictated Past Patient History - Infectious Disease Hx of Infectious Diseases: None - Past Medical History & Family History Past Medical History?: Yes - Past Social History Smoking Status: Light Smoker < 10 Cigarettes Daily - CARDIAC Hx Cardiac Disorders: Yes Hx Congestive Heart Failure: Yes Hx Hypertension: Yes - PULMONARY Hx Chronic Obstructive Pulmonary Disease (COPD): Yes (emphysema (per CT/chest)) - NEUROLOGICAL Hx Neurological Disorder: No - HEENT Hx HEENT Problems: No - RENAL Hx Chronic Kidney Disease: No - ENDOCRINE/METABOLIC Hx Hypothyroidism: Yes - HEMATOLOGICAL/ONCOLOGICAL Hx Blood Disorders: No - INTEGUMENTARY Hx Dermatological Problems: No - MUSCULOSKELETAL/RHEUMATOLOGICAL Hx Arthritis: Yes (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; BACK NECK) - GASTROINTESTINAL Hx Gastrointestinal Disorders: No - GENITOURINARY/GYNECOLOGICAL Hx Genitourinary Disorders: No - PSYCHIATRIC Hx Substance Use: No - SURGICAL HISTORY Hx Tonsillectomy: Yes - ANESTHESIA Hx Anesthesia: No Meds Allergies/Adverse Reactions: Allergies Allergy/AdvReac Type Severity Reaction Status Date / Time No Known Allergies Allergy Verified 07/07/18 14:41 - Medications Medications: Current Medications Albuterol/Ipratropium (Duoneb 3 Mg/0.5 Mg (3 Ml) Ud) 3 ml INH Q6 PRN PRN Reason: Shortness of Breath Docusate Sodium (Colace) 100 mg PO DAILY [facility] Last Admin: 08/11/18 10:57 Dose: 100 mg Enoxaparin Sodium (Lovenox) 30 mg SC DAILY [facility] Last Admin: 08/11/18 10:58 Dose: 30 mg Famotidine (Pepcid) 20 mg PO DAILY [facility] Last Admin: 08/11/18 10:58 Dose: 20 mg Gabapentin (Neurontin) 100 mg PO BID [facility] Last Admin: 08/11/18 10:58 Dose: 100 mg Cefepime HCl 1 gm/ Dextrose 50 mls @ 100 mls/hr IVPB Q12H [facility]; Protocol Last Admin: 08/11/18 06:08 Dose: 100 mls/hr Vancomycin HCl 1 gm/ Sodium (Chloride) 250 mls @ 167 mls/hr IVPB Q24H [facility]; Protocol Last Admin: 08/10/18 17:19 Dose: 167 mls/hr Levothyroxine Sodium (Synthroid) 75 mcg PO DAILY@0630 [facility] Last Admin: 08/11/18 06:08 Dose: 75 mcg Magnesium Hydroxide (Milk Of Magnesia) 30 ml PO HS [facility] Last Admin: 08/10/18 21:11 Dose: 30 ml Multivitamins (Hexavitamin) 1 tab PO DAILY [facility] Last Admin: 08/11/18 10:57 Dose: 1 tab Oxycodone HCl (Oxycodone Immediate Release Tab) 10 mg PO Q4H PRN PRN Reason: Pain, moderate (4-7) Last Admin: 08/11/18 13:15 Dose: 10 mg Spironolactone (Aldactone) 50 mg PO DAILY [facility] Last Admin: 08/11/18 10:58 Dose: 50 mg Results - Vital Signs Recent Vital Signs: Last Vital Signs Temp 97.3 F L 08/11/18 08:15 Pulse 92 H 08/11/18 08:15 Resp 20 08/11/18 08:15 BP 112/67 08/11/18 08:15 Pulse Ox 96 08/11/18 08:15 - Labs Result Diagrams: 08/09/18 18:02 08/09/18 18:02
[2018-08-11 14:34] LABS: BASO # 0.1 K/uL (0.0-0.2); BASO % 0.7 % (0.0-2.0); EOS % 0.5 % (0.0-4.0); LYMPH # 1.1 K/uL (1.0-4.3); LYMPH % 12.3 % (20.0-40.0); MEAN CELL VOLUME 93.2 fL (80.0-94.0); MEAN CORPUSCULAR HEMOGLOBIN 30.9 pg (27.0-31.0); MEAN CORPUSCULAR HGB CONC 33.1 g/dL (33.0-37.0); MEAN PLATELET VOLUME 7.9 fL (7.2-11.7); MONO # 0.9 K/uL (0.0-0.8); MONO % 9.8 % (0.0-10.0); NEUT # 6.7 K/uL (1.8-7.0); NEUT % 76.7 % (50.0-75.0); RBC 3.22 Mil/uL (4.40-5.90); RED CELL DISTRIBUTION WIDTH 16.2 % (11.5-14.5); WHITE BLOOD COUNT 8.8 K/uL (4.8-10.8)
[2018-08-11 14:51] LABS: ALB/GLOB RATIO 1.1 (1.0-2.1); ALBUMIN 3.4 g/dL (3.5-5.0); ALT/SGPT 16 U/L (21-72); AST/SGOT 24 U/L (17-59); BLOOD UREA NITROGEN 26 mg/dL (9-20); CALCIUM 9.8 mg/dl (8.6-10.4); GFR NON-AFRICAN AMERICAN 59
--- NOTE | 2018-08-11 16:05 | CARD ---
APPROVED REPORT Date of service: 08/09/2018 EKG Measurement Heart [id number] <Conclusion> Atrial fibrillation with rapid ventricular response Rightward axis T wave abnormality, consider inferior ischemia Abnormal ECG
[2018-08-11] MEDS: Lactobacillus Acidophilus 500 MU Cap PO SCH (17:25)
--- NOTE | 2018-08-11 17:43 | CP.PCM.PN ---
Subjective - Date & Time of Evaluation Date of Evaluation: 08/11/18 Time of Evaluation: 07:30 - Subjective Subjective: clinically same Objective - Vital Signs/Intake and Output Vital Signs (last 24 hours): Temp Pulse Resp BP Pulse Ox 98.1 F 91 H 20 112/61 98 08/11/18 16:14 08/11/18 16:14 08/11/18 16:14 08/11/18 16:14 08/11/18 16:14 Intake and Output: 08/11/18 08/11/18 06:59 18:59 Intake Total 990 400 Output Total 300 Balance 690 400 - Medications Medications: Current Medications Albuterol/Ipratropium (Duoneb 3 Mg/0.5 Mg (3 Ml) Ud) 3 ml INH Q6 PRN PRN Reason: Shortness of Breath Docusate Sodium (Colace) 100 mg PO DAILY [facility] Last Admin: 08/11/18 10:57 Dose: 100 mg Enoxaparin Sodium (Lovenox) 30 mg SC DAILY [facility] Last Admin: 08/11/18 10:58 Dose: 30 mg Famotidine (Pepcid) 20 mg PO DAILY [facility] Last Admin: 08/11/18 10:58 Dose: 20 mg Gabapentin (Neurontin) 100 mg PO BID [facility] Last Admin: 08/11/18 17:25 Dose: 100 mg Cefepime HCl 1 gm/ Dextrose 50 mls @ 100 mls/hr IVPB Q12H [facility]; Protocol Last Admin: 08/11/18 06:08 Dose: 100 mls/hr Daptomycin 300 mg/ Sodium (Chloride) 100 mls @ 100 mls/hr IV Q24H [facility]; Protocol Stop: 08/16/18 16:01 Last Admin: 08/11/18 17:24 Dose: 100 mls/hr Lactobacillus Acidophilus (Lactobacillus) 1 cap PO BID [facility] Last Admin: 08/11/18 17:25 Dose: 1 cap Levothyroxine Sodium (Synthroid) 75 mcg PO DAILY@0630 [facility] Last Admin: 08/11/18 06:08 Dose: 75 mcg Magnesium Hydroxide (Milk Of Magnesia) 30 ml PO HS [facility] Last Admin: 08/10/18 21:11 Dose: 30 ml Multivitamins (Hexavitamin) 1 tab PO DAILY [facility] Last Admin: 08/11/18 10:57 Dose: 1 tab Oxycodone HCl (Oxycodone Immediate Release Tab) 10 mg PO Q4H PRN PRN Reason: Pain, moderate (4-7) Last Admin: 08/11/18 13:15 Dose: 10 mg Spironolactone (Aldactone) 50 mg PO DAILY [facility] Last Admin: 08/11/18 10:58 Dose: 50 mg - Labs Labs: 08/11/18 14:20 08/11/18 14:20 PT 19.9 SECONDS (9.7-12.2) H 08/09/18 18:02 INR 1.8 08/09/18 18:02 APTT 37 SECONDS (21-34) H 08/09/18 18:02 - Constitutional Appears: Well - Head Exam Head Exam: ATRAUMATIC, NORMAL INSPECTION, NORMOCEPHALIC - Eye Exam Eye Exam: EOMI, Normal appearance, PERRL Pupil Exam: NORMAL ACCOMODATION, PERRL - ENT Exam ENT Exam: Mucous Membranes Moist, Normal Exam - Neck Exam Neck Exam: Full ROM, Normal Inspection. absent: Lymphadenopathy - Respiratory Exam Respiratory Exam: Decreased Breath Sounds - Cardiovascular Exam Cardiovascular Exam: REGULAR RHYTHM, +S1, +S2 - GI/Abdominal Exam GI & Abdominal Exam: Soft, Diminished Bowel Sounds - Rectal Exam Rectal Exam: Deferred
[2018-08-11] MEDS: Magnesium Hydroxide Susp 30 ml UD PO SCH (21:35)
--- NOTE | 2018-08-12 01:52 | CON ---
DATE: 08/11/2018 This was reviewed, discussed with the patient who declines any intervention at present. I attempt to discuss this with his brother who is allegedly the power of assistant prosecuting attorney, however, Adelfo Tijerina says he is not power of assistant prosecuting attorney and is attempting to get another phone number of another family member who may have this ability. Wally Begum Jr., MD
--- NOTE | 2018-08-12 01:54 | CON ---
DATE: 08/11/2018 INFECTIOUS DISEASE CONSULT REQUESTED BY: Meeta Anderson MD HISTORY OF PRESENT ILLNESS: This patient is a 78-year-old male. He has history of atrial fib, pulmonary embolism, UTIs in the past. He comes in with the second toe with having gangrenous changes and wound in the fourth interspace and also has a nail on the first left great toe coming out. He says he has been applying iodine to it and taking care of it three times in a day. He said a wheelchair ran over this foot, and he has this foot which looks to have ischemic changes and Dr. Begum has been called in for vascular eval. He was also seen by Podiatry. He denies any other complaints. He wants to go back to his senior care; and he denies any fever, nausea, vomiting, diarrhea, or any other complaints. He does not even have foot pains, he says. PAST MEDICAL HISTORY: Significant for pulmonary embolism, UTI, and atrial fibrillation. PAST SURGICAL HISTORY: Tonsillectomy. ALLERGIES: HE IS NOT ALLERGIC TO ANY MEDICINE. SOCIAL HISTORY: Negative for smoking or drinking or drug abuse. MEDICATIONS: He is on DuoNeb. He is getting cefepime 1 g every 12 hours, Colace, Lovenox, Pepcid, Neurontin, lactobacillus. He is on levothyroxine, Synthroid, he is hypothyroid, milk of magnesia, multivitamin, oxycodone, Aldactone; and he is on vancomycin 1 g every 12 hours , but since he is 78 years old, I think 1 g would be good enough for him, so we will change it to 1 g a day. REVIEW OF SYSTEM: He denies any headache. No ears, nose, and throat problems. No chest pain or shortness of breath. No abdominal pain. No nausea, no vomiting, no diarrhea, but he was very dirty at this time and was going to be cleaned as he had a BM. PHYSICAL EXAMINATION: VITAL SIGNS: T-max is 97.3, pulse 92, blood pressure 112/67, respirations are 20. GENERAL: He is awake and alert, able to give some history. HEAD: Atraumatic, normocephalic. Pupils are reacting to light. NECK: Supple. LUNGS: Clear. Decreased breath sounds bilaterally. HEART: S1, S2, irregularly irregular. ABDOMEN: Soft, nontender. No guarding, no rigidity present. EXTREMITIES: Right foot toenail is coming out on the great toe and appears necrotic and has necrotic ulceration on the second toe as well as on the fifth digit, and there is interspace infection on the fourth with no active drainage but appears macerated and the foot has circulation issues. Pulses are not felt . Right foot appears with little redness, but no open wounds. LABORATORY DATA: Labs are noted. White count is 8.9, hemoglobin 11.2, hematocrit 34.3, this is from 08/09/2018, and BUN is 39, creatinine is 1.7. ASSESSMENT AND PLAN: He does have renal insufficiency, and he is refusing to get further workup done at this time. We will see what happens with that, but at this time, I would discontinue the vancomycin as creatinine is high, and he should be okay with the Cubicin. We will give Cubicin and Maxipime for now until we decide if he is going to get any vascular evaluation, and microwise, the culture has gram-negative and gram-positive rods which is pending at this time. Elly Moctezuma MD
[2018-08-12] MEDS: Levothyroxine 75 MCG TAB PO SCH (06:01)
[2018-08-12 07:23] LABS: BASO % 0.5 % (0.0-2.0); EOS # 0.1 K/uL (0.0-0.7); EOS % 0.7 % (0.0-4.0); HEMOGLOBIN 9.4 g/dL (12.0-18.0); LYMPH # 1.1 K/uL (1.0-4.3); LYMPH % 14.7 % (20.0-40.0); MEAN CELL VOLUME 92.2 fL (80.0-94.0); MEAN CORPUSCULAR HEMOGLOBIN 31.2 pg (27.0-31.0); MEAN CORPUSCULAR HGB CONC 33.8 g/dL (33.0-37.0); MEAN PLATELET VOLUME 8.2 fL (7.2-11.7); MONO # 0.8 K/uL (0.0-0.8); MONO % 10.3 % (0.0-10.0); NEUT # 5.5 K/uL (1.8-7.0); NEUT % 73.8 % (50.0-75.0); RBC 3.01 Mil/uL (4.40-5.90); RED CELL DISTRIBUTION WIDTH 16.3 % (11.5-14.5); WHITE BLOOD COUNT 7.5 K/uL (4.8-10.8)
[2018-08-12 07:47] LABS: ALB/GLOB RATIO 1.1 (1.0-2.1); ALBUMIN 3.3 g/dL (3.5-5.0); ALT/SGPT 19 U/L (21-72); AST/SGOT 26 U/L (17-59); BLOOD UREA NITROGEN 23 mg/dL (9-20); CALCIUM 9.4 mg/dl (8.6-10.4); GFR NON-AFRICAN AMERICAN 59
--- NOTE | 2018-08-12 09:40 | CP.PCM.PN ---
Subjective - Date & Time of Evaluation Date of Evaluation: 08/12/18 Time of Evaluation: 07:20 - Subjective Subjective: Medicine progress note (Dr. Shawn Anderson's service) Patient was seen and examined at bedside as he was resting him bed. Patient denies any acute issue or complaints. Patient is still adamant about returning to the residential without appropriate medical intervention for his left foot. Objective - Vital Signs/Intake and Output Vital Signs (last 24 hours): Temp Pulse Resp BP Pulse Ox 97.8 F 68 20 105/47 L 98 08/12/18 07:00 08/12/18 07:00 08/12/18 07:00 08/12/18 07:00 08/12/18 07:00 Intake and Output: 08/12/18 08/12/18 06:59 18:59 Intake Total 840 Output Total 400 Balance 440 - Medications Medications: Current Medications Albuterol/Ipratropium (Duoneb 3 Mg/0.5 Mg (3 Ml) Ud) 3 ml INH Q6 PRN PRN Reason: Shortness of Breath Docusate Sodium (Colace) 100 mg PO DAILY [facility] Last Admin: 08/11/18 10:57 Dose: 100 mg Enoxaparin Sodium (Lovenox) 30 mg SC DAILY [facility] Last Admin: 08/11/18 10:58 Dose: 30 mg Famotidine (Pepcid) 20 mg PO DAILY [facility] Last Admin: 08/11/18 10:58 Dose: 20 mg Gabapentin (Neurontin) 100 mg PO BID [facility] Last Admin: 08/11/18 17:25 Dose: 100 mg Cefepime HCl 1 gm/ Dextrose 50 mls @ 100 mls/hr IVPB Q12H [facility]; Protocol Last Admin: 08/12/18 06:01 Dose: 100 mls/hr Daptomycin 300 mg/ Sodium (Chloride) 100 mls @ 100 mls/hr IV Q24H [facility] [place]; Protocol Stop: 08/16/18 16:01 Last Admin: 08/11/18 17:24 Dose: 100 mls/hr Lactobacillus Acidophilus (Lactobacillus) 1 cap PO BID [facility] Last Admin: 08/11/18 17:25 Dose: 1 cap Levothyroxine Sodium (Synthroid) 75 mcg PO DAILY@0630 [facility] Last Admin: 08/12/18 06:01 Dose: 75 mcg Magnesium Hydroxide (Milk Of Magnesia) 30 ml PO HS [facility] Last Admin: 08/11/18 21:35 Dose: 30 ml Multivitamins (Hexavitamin) 1 tab PO DAILY [facility] Last Admin: 08/11/18 10:57 Dose: 1 tab Oxycodone HCl (Oxycodone Immediate Release Tab) 10 mg PO Q4H PRN PRN Reason: Pain, moderate (4-7) Last Admin: 08/11/18 13:15 Dose: 10 mg Spironolactone (Aldactone) 50 mg PO DAILY [facility] [place] Last Admin: 08/11/18 10:58 Dose: 50 mg - Labs Labs: 08/12/18 06:53 08/12/18 06:53 PT 19.9 SECONDS (9.7-12.2) H 08/09/18 18:02 INR 1.8 08/09/18 18:02 APTT 37 SECONDS (21-34) H 08/09/18 18:02 - Constitutional Appears: No Acute Distress, Other (Thin appearing ) - Head Exam Head Exam: ATRAUMATIC - Eye Exam Eye Exam: EOMI - ENT Exam ENT Exam: Mucous Membranes Moist - Respiratory Exam Respiratory Exam: NORMAL BREATHING PATTERN. absent: Prolonged Expiratory Phase, Rhonchi, Wheezes, Respiratory Distress - Cardiovascular Exam Cardiovascular Exam: REGULAR RHYTHM, +S1, +S2 - GI/Abdominal Exam GI & Abdominal Exam: Soft, Normal Bowel Sounds. absent: Firm, Guarding, Rigid, Tenderness - Extremities Exam Additional comments: Left foot - 2nd toe eschar on superior portion. Erythema (boarder drawn) DP/PT pulses not audible via doppler - Neurological Exam Neurological Exam: Alert, Awake - Psychiatric Exam Psychiatric exam: Normal Affect - Skin Skin Exam: Normal Color Assessment and Plan (1) Gangrene of toe of left foot Assessment & Plan: left foot 2nd digit gangrene and wound in the 4th interspace. Consultations: Podiatry consulted, Dr. Mcpherson * No surgical intervention at this time Vascular Surgery consulted, Dr. Begum * Currently, patient refuses amputation, there will reconsult vascular team if patient changes his mind. Will consult psych for capacity to ensure that patient is making appropriate decision ID consulted, Dr. Moctezuma * Follow up recommendation Psych, Dr. Man * Evaluation for decision-making capacity * As per psychiatry evaluation, patient is deemed to have capacity with recomm endation for palliative consult if necessary Imaging: Abdominal CTA w/run-off 08/09/18: * CT ANGIOGRAM ABDOMEN/PELVIS: * 1. Moderate calcific plaque in the aorta without aneurysm or stenosis. * 2. There is moderate stenosis of the proximal left common iliac artery with severe calcific plaque of the common iliac artery. 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 The distal external iliac artery has soft plaque which may represent acute thrombus. * 3. Moderate calcific plaque of the right common iliac artery without significant stenosis. There is moderate stenosis of right external iliac artery. * LEFT LOWER EXTREMITY CT ANGIOGRAM: * 1. Severe calcific plaque of the common femoral artery with severe stenosis. * 2. Occlusion of the left SFA with reconstituted popliteal artery. There is severe calcific throughout the SFA. * 3. Moderate stenosis of the popliteal artery. * 4. Runoff shows patent anterior tibial artery and peroneal artery. Posterior tibial is severely stenotic or occluded in the mid and distal segments. * RIGHT LOWER EXTREMITY CT ANGIOGRAM: * 1. Severe calcific plaque of the common femoral artery with moderate stenosis. * 2. Severe calcific throughout the SFA with multiple areas of severe s tenosis and short segment occlusion throughout the SFA. * 3. Moderate stenosis of popliteal artery. * 4. Patent 3 vessel. Left Foot X-Ray (08/09/18): * [id number] dorsal forefoot soft tissue edema. No acute fracture or dislocation. Degenerative joint changes seen throughout the left foot d iffusely. Labs/Vitals: - Afebrile, with elevated WBC - Wound Culture: Gram negative chrissy and Gram positive cocci; E.coil and Enterococcus - Blood Culture negative X 24 hours Management: * Oxycodone 10mg PO q4h prn * Gabapentin 100mg PO BID * Cefepime 1gm IVPB q12h, started 08/10/18 * Daptomycin 300mg IV Q24 hours (Started 08/11/18) * Vancomycin 1gm IVPB q24h-->started 08/10/18; switched to Q12 (08/11/18)---> Discontinue 08/11/18 due to wound culture growth * Lactobacillus 1 tab PO BID Status: Acute (2) History of CHF (congestive heart failure) Assessment & Plan: Echo (2016): The left ventricle is normal size. There is normal left ventricular wall thickness. The systolic function is severely impaired, Severe septal hypokinesis, MR is moderate and there moderate TR and Left pleural effusion. Please refer to the EMR for full report. Medication: Spironolactone 50mg PO daily Status: Acute (3) Hypertension Assessment & Plan: Spironolactone 50mg PO daily Status: Acute (4) History of COPD Assessment & Plan: Not in acute exacerbation Duonebs 3mL INH q6h prn for shortness of breath Status: Acute (5) Hypothyroidism Assessment & Plan: Levothyroxine 75mcg PO daily Status: Acute (6) Constipation Assessment & Plan: Milk of Mag q24h anjel Colace 100mg PO daily Status: Acute (7) Prophylactic measure Assessment & Plan: DVT: Lovenox 30mg SC daily GI: Pepcid 20mg PO daily Multivitamins 1 tab PO daily Ensure supplement (3 per day) Disposition: Patient is currently refusing any surgical intervention and as per psychiatry consult, patient has capacity with recommendation for palliative care if necessary . Patient may need PICC line insertion and long-term antibiotics All medical management as per Dr. Jaime Anderson Status: Acute
[2018-08-12] MEDS: Lactobacillus Acidophilus 500 MU Cap PO SCH ×2 (10:00→17:03)
[2018-08-12] MEDS: Enoxaparin 30 mg Syringe SC SCH (10:00)
[2018-08-12] MEDS: Multiple Vitamins Tab PO SCH (10:00)
--- NOTE | 2018-08-12 11:46 | PCM.PSYCH ---
Initial Psychiatric Evaluation - Initial Psychiatric Evaluation Type of Admission: Voluntary Legal Status: Capacity Chief Complaint (in patient's own words): "I'm fine" History of Present Illness and Precipitating Events: He is seen, chart reviewed, case discussed Consult was aksed for his capacity to make medical decisions. He is a 78 y/o WM, single with an adult daughter who he is not in touch with. He lives in a NH and is here for his ankle. He is recommended to consider amputation but he refuses. Pt, otherwise is willing to accept other meds, i.e. painkilers, antibiotics, drainage etc. He is aware of the potential consequences to a degree, however, he listens and doesn't object when presented. Also, he does not suffer from any significant mental illness or dementia He is oriented in all spheres and has good attention and acceptable memory for his age. No past psych hx No known family hx Medical hx as per chart Current Medications: Active Medications Generic Name Dose Route Start Last Admin Trade Name Freq PRN Reason Stop Dose Admin Albuterol/Ipratropium 3 ml 08/09/18 23:25 Duoneb 3 Mg/0.5 Mg (3 Ml) Ud INH Q6 PRN Shortness of Breath Docusate Sodium 100 mg 08/11/18 10:00 08/12/18 10:00 Colace PO 100 mg DAILY [facility] Administration Enoxaparin Sodium 30 mg 08/11/18 10:00 08/12/18 10:00 Lovenox SC 30 mg DAILY [facility] Administration Famotidine 20 mg 08/11/18 10:00 08/12/18 10:00 Pepcid PO 20 mg DAILY [facility] Administration Gabapentin 100 mg 08/10/18 10:00 08/12/18 10:00 Neurontin PO 100 mg BID [facility] Administration Cefepime HCl 1 gm/ Dextrose 50 mls @ 100 mls/hr 08/10/18 07:00 08/12/18 06:01 IVPB 100 mls/hr Q12H [facility] Administration Protocol Daptomycin 300 mg/ Sodium 100 mls @ 100 mls/hr 08/11/18 16:00 08/11/18 17:24 Chloride IV 08/16/18 16:01 100 mls/hr Q24H [facility] Administration Protocol Lactobacillus Acidophilus 1 cap 08/11/18 18:00 08/12/18 10:00 Lactobacillus PO 1 cap BID [facility] Administration Levothyroxine Sodium 75 mcg 08/10/18 06:30 08/12/18 06:01 Synthroid PO 75 mcg DAILY@0630 [facility] Administration Magnesium Hydroxide 30 ml 08/10/18 22:00 08/11/18 21:35 Milk Of Magnesia PO 30 ml HS [facility] Administration Multivitamins 1 tab 08/10/18 10:00 08/12/18 10:00 Hexavitamin PO 1 tab DAILY [facility] Administration Oxycodone HCl 10 mg 08/09/18 23:25 08/11/18 13:15 Oxycodone Immediate Release Tab PO 10 mg Q4H PRN Administration Pain, moderate (4-7) Spironolactone 50 mg 08/10/18 10:00 08/12/18 10:00 Aldactone PO 50 mg DAILY [facility] Administration Past Psychiatric History - Past Psychiatric History Previous Treatment History: None Pertinent Medical Hx (Current Medical&Sleep Prob, Allergies): Allergies Allergy/AdvReac Type Severity Reaction Status Date / Time No Known Allergies Allergy Verified 07/07/18 14:41 Famotidine [Pepcid] 20 mg PO BID #0 tab 10/24/15 Multivitamins [Hexavitamin] 1 tab PO DAILY #0 tab 10/24/15 Acetaminophen [Tylenol 325mg tab] 650 mg PO Q4 PRN #0 tab 04/01/16 Acetaminophen [Tylenol] 2 tab PO Q4 PRN MDD 3 gm 11/18/17 Albuterol/Ipratropium [Duoneb 3 mg/0.5 mg (3 ml) UD] 3 ml INH Q6 PRN 11/18/17 Docusate Sodium 1 tab PO DAILY 11/18/17 Gabapentin [Neurontin] 1 tab PO BID 11/18/17 Levothyroxine [Synthroid] 1 tab PO DAILY 11/18/17 Magnesium Hydroxide [Milk Of Magnesia] 30 ml PO Q24H 11/18/17 Oxycodone HCl 10 mg PO Q4H PRN 08/09/18 Spironolactone [Aldactone] 50 mg PO DAILY 08/09/18 oxyCODONE [oxyCONTIN] 10 mg PO Q12 PRN 08/09/18 Review of Systems - Psychiatric Psychiatric: Abnormal Sleep Pattern, Anxiety, Difficulty Concentrating. absent: Hallucinations, Homicidal Ideation, Paranoia, Suicidal Ideation Mental Status Examination - Personal Presentation Personal Presentation: Looks stated age (cachectic, pale, slightly restless) - Affect Affect: Constricted - Motor Activity Motor Activity: Other (restless) - Reliability in Providing Information Reliability in Providing Information: Fair - Speech Speech: Organized - Mood Mood: Anxious - Formal Thought Process Formal Thought Process: No Impairment - Cognitive Functions Orientation: Person, Place, Situation, Time Sensorium: Alert Attention/Concentration: Easily distracted Abstract Thinking: [place]am Estimate of Intelligence: Average Judgement: Intact, as evidence by: Insight regarding need for hospitalization (but poor re refusing amputation) Memory: Recent intact, as evidence by: Ability to recall events of the day, Remote impaired as evidenced by: Inability to recall sig life events - Risk Risk: Diminished functioning DSM 5 DX - DSM 5 DSM 5 Diagnosis: Adjustment d/o - Recommended/Plan of Treatment Treatment Recommendations and Plan of Treatment: The pt has the capacity to make medical decisions at this time. No additional treatment necessary 33 min
--- NOTE | 2018-08-12 16:44 | CP.PCM.PN ---
Subjective - Date & Time of Evaluation Date of Evaluation: 08/12/18 Time of Evaluation: 07:45 - Subjective Subjective: clinically same Objective - Vital Signs/Intake and Output Vital Signs (last 24 hours): Temp Pulse Resp BP Pulse Ox 97.8 F 68 20 120/70 98 08/12/18 07:00 08/12/18 07:00 08/12/18 07:00 08/12/18 08:00 08/12/18 07:00 Intake and Output: 08/12/18 08/12/18 06:59 18:59 Intake Total 840 450 Output Total 400 Balance 440 450 - Medications Medications: Current Medications Albuterol/Ipratropium (Duoneb 3 Mg/0.5 Mg (3 Ml) Ud) 3 ml INH Q6 PRN PRN Reason: Shortness of Breath Docusate Sodium (Colace) 100 mg PO DAILY [facility] Last Admin: 08/12/18 10:00 Dose: 100 mg Enoxaparin Sodium (Lovenox) 30 mg SC DAILY [facility] Last Admin: 08/12/18 10:00 Dose: 30 mg Famotidine (Pepcid) 20 mg PO DAILY [facility] Last Admin: 08/12/18 10:00 Dose: 20 mg Gabapentin (Neurontin) 100 mg PO BID [facility] Last Admin: 08/12/18 10:00 Dose: 100 mg Cefepime HCl 1 gm/ Dextrose 50 mls @ 100 mls/hr IVPB Q12H [facility]; Protocol Last Admin: 08/12/18 06:01 Dose: 100 mls/hr Daptomycin 300 mg/ Sodium (Chloride) 100 mls @ 100 mls/hr IV Q24H [facility]; Protocol Stop: 08/16/18 16:01 Last Admin: 08/11/18 17:24 Dose: 100 mls/hr Lactobacillus Acidophilus (Lactobacillus) 1 cap PO BID [facility] Last Admin: 08/12/18 10:00 Dose: 1 cap Levothyroxine Sodium (Synthroid) 75 mcg PO DAILY@0630 [facility] Last Admin: 08/12/18 06:01 Dose: 75 mcg Magnesium Hydroxide (Milk Of Magnesia) 30 ml PO HS [facility] Last Admin: 08/11/18 21:35 Dose: 30 ml Multivitamins (Hexavitamin) 1 tab PO DAILY [facility] Last Admin: 08/12/18 10:00 Dose: 1 tab Oxycodone HCl (Oxycodone Immediate Release Tab) 10 mg PO Q4H PRN PRN Reason: Pain, moderate (4-7) Last Admin: 08/11/18 13:15 Dose: 10 mg Spironolactone (Aldactone) 50 mg PO DAILY [facility] Last Admin: 08/12/18 10:00 Dose: 50 mg - Labs Labs: 08/12/18 06:53 08/12/18 06:53 PT 19.9 SECONDS (9.7-12.2) H 08/09/18 18:02 INR 1.8 08/09/18 18:02 APTT 37 SECONDS (21-34) H 08/09/18 18:02
--- NOTE | 2018-08-12 18:24 | CP.PCM.PN ---
Subjective - Date & Time of Evaluation Date of Evaluation: 08/12/18 Time of Evaluation: 18:19 - Subjective Subjective: Podiatry Progress Note: Dr. Mcpherson 78 year old male was seen and evaluated at bedside for left foot 2nd digit gangrene and wound in the 4th interspace. Patient is AAOX3. Denies of any acute overnight events and denies of any pain today. Reports that he pealed his big toe nail off by himself. Denies of any pain. No recent F/N/V/C/SOB/CP/headache. No other pedal complains. Objective - Vital Signs/Intake and Output Vital Signs (last 24 hours): Temp Pulse Resp BP Pulse Ox 97.8 F 107 H 20 124/52 L 97 08/12/18 16:00 08/12/18 16:00 08/12/18 16:00 08/12/18 16:00 08/12/18 16:00 Intake and Output: 08/12/18 08/12/18 06:59 18:59 Intake Total 840 450 Output Total 400 Balance 440 450 - Medications Medications: Current Medications Albuterol/Ipratropium (Duoneb 3 Mg/0.5 Mg (3 Ml) Ud) 3 ml INH Q6 PRN PRN Reason: Shortness of Breath Docusate Sodium (Colace) 100 mg PO DAILY [facility] Last Admin: 08/12/18 10:00 Dose: 100 mg Enoxaparin Sodium (Lovenox) 30 mg SC DAILY [facility] Last Admin: 08/12/18 10:00 Dose: 30 mg Famotidine (Pepcid) 20 mg PO DAILY [facility] Last Admin: 08/12/18 10:00 Dose: 20 mg Gabapentin (Neurontin) 100 mg PO BID [facility] Last Admin: 08/12/18 17:03 Dose: 100 mg Cefepime HCl 1 gm/ Dextrose 50 mls @ 100 mls/hr IVPB Q12H [facility]; Protocol Last Admin: 08/12/18 06:01 Dose: 100 mls/hr Daptomycin 300 mg/ Sodium (Chloride) 100 mls @ 100 mls/hr IV Q24H [facility]; Protocol Stop: 08/16/18 16:01 Last Admin: 08/12/18 16:44 Dose: 100 mls/hr Lactobacillus Acidophilus (Lactobacillus) 1 cap PO BID [facility] Last Admin: 08/12/18 17:03 Dose: 1 cap Levothyroxine Sodium (Synthroid) 75 mcg PO DAILY@0630 [facility] Last Admin: 08/12/18 06:01 Dose: 75 mcg Magnesium Hydroxide (Milk Of Magnesia) 30 ml PO HS [facility] Last Admin: 08/11/18 21:35 Dose: 30 ml Multivitamins (Hexavitamin) 1 tab PO DAILY [facility] Last Admin: 08/12/18 10:00 Dose: 1 tab Oxycodone HCl (Oxycodone Immediate Release Tab) 10 mg PO Q4H PRN PRN Reason: Pain, moderate (4-7) Last Admin: 08/11/18 13:15 Dose: 10 mg Spironolactone (Aldactone) 50 mg PO DAILY [facility] Last Admin: 08/12/18 10:00 Dose: 50 mg - Labs Labs: 08/12/18 06:53 08/12/18 06:53 PT 19.9 SECONDS (9.7-12.2) H 08/09/18 18:02 INR 1.8 08/09/18 18:02 APTT 37 SECONDS (21-34) H 08/09/18 18:02 - Constitutional Appears: Well, Non-toxic, No Acute Distress - Extremities Exam Additional comments: Bilateral LE exam: VASC: DP pulses are very faintly palpable, PT pulses are non-palpable, Cap refill time: slightly delayed at approx 3 sec, Temp gradient: warm to cool from proximal to distal, mild non-pitting edema noted localized to the left foot/ankle accompanied with erythema DERM: Dry hyperpigmented eschar noted on the dorsal aspect of the left 2nd digit with necrotic changes, interdigital maceration noted in the 4th interspace on the left with medial aspect of the 5th digit fully macerated with epidermal and dermal lysis, no active drainage, no malodor, erythema extending distal to the ankle joint, no probe to bone, no tunneling, no undermining, nails are hyperkeratotic and discolored and fully attached to the nail bed except for the hallux nail, hallux nail bed exposed NEURO: Protective sensation mildly diminished ORTHO: pain on palpation of the left 5th digit wound, no pain during AROM of the digits of the left foot - Neurological Exam Neurological Exam: Alert, Awake, Oriented x3 - Psychiatric Exam Psychiatric exam: Normal Affect, Normal Mood Assessment and Plan - Assessment and Plan (Free Text) Assessment: 78 year old male evaluated for left foot 2nd digit gangrene and wound in the 4th interspace Plan: Patient seen and evaluated Discussed plan with attending Dr. Mcpherson Labs, vitals and charts reviewed - VSS, absent leukocytosis X-rays reviewed: no acute fractures or dislocations, no soft tissue emphysema, no evidence of OM Wound culture: E.Coli; Enterococcus Faecalis - Continue abx as per ID Vascular on board - CTA performed, severe calcifications in b/l LE vessels - AKA vs. Angio - Patient refused any surgical intervention from Vascular team Stable dressing change using betadine, DSD Patient to WBAT in surgical shoe No plan for surgical intervention from podiatry standpoint at this time - will treat conservatively Podiatry to follow patient while in-house
[2018-08-12] MEDS: oxyCODONE 10 mg Immediate Release Tab PO PRN (20:35)
[2018-08-12] MEDS: Magnesium Hydroxide Susp 30 ml UD PO SCH (21:29)
[2018-08-13] MEDS: Levothyroxine 75 MCG TAB PO SCH (06:02)
[2018-08-13] MEDS: oxyCODONE 10 mg Immediate Release Tab PO PRN (06:04)
[2018-08-13 07:22] LABS: ALB/GLOB RATIO 1.1 (1.0-2.1); ALBUMIN 3.5 g/dL (3.5-5.0); ALT/SGPT 17 U/L (21-72); AST/SGOT 32 U/L (17-59); BLOOD UREA NITROGEN 19 mg/dL (9-20); CALCIUM 9.4 mg/dl (8.6-10.4); GFR NON-AFRICAN AMERICAN > 60
[2018-08-13 07:24] LABS: BASO # 0.1 K/uL (0.0-0.2); BASO % 0.7 % (0.0-2.0); EOS # 0.2 K/uL (0.0-0.7); HEMOGLOBIN 10.4 g/dL (12.0-18.0); LYMPH # 1.5 K/uL (1.0-4.3); LYMPH % 18.8 % (20.0-40.0); MEAN CELL VOLUME 92.8 fL (80.0-94.0); MEAN CORPUSCULAR HEMOGLOBIN 31.4 pg (27.0-31.0); MEAN CORPUSCULAR HGB CONC 33.8 g/dL (33.0-37.0); MEAN PLATELET VOLUME 8.2 fL (7.2-11.7); MONO # 0.9 K/uL (0.0-0.8); MONO % 11.2 % (0.0-10.0); NEUT # 5.5 K/uL (1.8-7.0); NEUT % 67.3 % (50.0-75.0); NRBC % 0.1 % (0.0-2.0); RBC 3.31 Mil/uL (4.40-5.90); RED CELL DISTRIBUTION WIDTH 16.4 % (11.5-14.5); WHITE BLOOD COUNT 8.2 K/uL (4.8-10.8)
[2018-08-13] MEDS: Multiple Vitamins Tab PO SCH (10:24)
[2018-08-13] MEDS: Lactobacillus Acidophilus 500 MU Cap PO SCH ×2 (10:24→17:20)
[2018-08-13] MEDS: Enoxaparin 30 mg Syringe SC SCH (10:24)
--- NOTE | 2018-08-13 10:26 | CP.PCM.PN ---
Subjective - Date & Time of Evaluation Date of Evaluation: 08/13/18 Time of Evaluation: 07:30 - Subjective Subjective: clinically same Objective - Vital Signs/Intake and Output Vital Signs (last 24 hours): Temp Pulse Resp BP Pulse Ox 98.6 F 75 20 114/51 L 98 08/13/18 08:51 08/13/18 10:00 08/13/18 08:51 08/13/18 10:00 08/13/18 08:51 Intake and Output: 08/13/18 08/13/18 06:59 18:59 Intake Total 450 290 Output Total 450 Balance 450 -160 - Medications Medications: Current Medications Albuterol/Ipratropium (Duoneb 3 Mg/0.5 Mg (3 Ml) Ud) 3 ml INH Q6 PRN PRN Reason: Shortness of Breath Docusate Sodium (Colace) 100 mg PO DAILY [facility] Last Admin: 08/13/18 10:24 Dose: 100 mg Enoxaparin Sodium (Lovenox) 30 mg SC DAILY [facility] Last Admin: 08/13/18 10:24 Dose: 30 mg Famotidine (Pepcid) 20 mg PO DAILY [facility] Last Admin: 08/13/18 10:24 Dose: 20 mg Gabapentin (Neurontin) 100 mg PO BID [facility] Last Admin: 08/13/18 10:24 Dose: 100 mg Cefepime HCl 1 gm/ Dextrose 50 mls @ 100 mls/hr IVPB Q12H [facility]; Protocol Last Admin: 08/13/18 06:02 Dose: 100 mls/hr Daptomycin 300 mg/ Sodium (Chloride) 100 mls @ 100 mls/hr IV Q24H [facility]; Protocol Stop: 08/16/18 16:01 Last Admin: 08/12/18 16:44 Dose: 100 mls/hr Lactobacillus Acidophilus (Lactobacillus) 1 cap PO BID [facility] Last Admin: 08/13/18 10:24 Dose: 1 cap Levothyroxine Sodium (Synthroid) 75 mcg PO DAILY@0630 [facility] Last Admin: 08/13/18 06:02 Dose: 75 mcg Magnesium Hydroxide (Milk Of Magnesia) 30 ml PO HS [facility] Last Admin: 08/12/18 21:29 Dose: Not Given Multivitamins (Hexavitamin) 1 tab PO DAILY [facility] Last Admin: 08/13/18 10:24 Dose: 1 tab Oxycodone HCl (Oxycodone Immediate Release Tab) 10 mg PO Q4H PRN PRN Reason: Pain, moderate (4-7) Last Admin: 08/13/18 06:04 Dose: 10 mg Spironolactone (Aldactone) 50 mg PO DAILY [facility] Last Admin: 08/13/18 10:24 Dose: 50 mg - Labs Labs: 08/13/18 07:02 08/13/18 07:02 PT 19.9 SECONDS (9.7-12.2) H 08/09/18 18:02 INR 1.8 08/09/18 18:02 APTT 37 SECONDS (21-34) H 08/09/18 18:02 - Constitutional Appears: Well - Head Exam Head Exam: ATRAUMATIC, NORMAL INSPECTION, NORMOCEPHALIC - Eye Exam Eye Exam: EOMI, Normal appearance, PERRL Pupil Exam: NORMAL ACCOMODATION, PERRL - ENT Exam ENT Exam: Mucous Membranes Moist, Normal Exam - Neck Exam Neck Exam: Full ROM, Normal Inspection. absent: Lymphadenopathy - Respiratory Exam Respiratory Exam: Decreased Breath Sounds - Cardiovascular Exam Cardiovascular Exam: REGULAR RHYTHM, +S1, +S2 - GI/Abdominal Exam GI & Abdominal Exam: Soft, Diminished Bowel Sounds - Rectal Exam Rectal Exam: Deferred Assessment and Plan - Assessment and Plan (Free Text) Plan: Follow-up with the senior php web developer IV cefepime IV daptomycin Pain medications patient is told that she needs a workup and needs to be seen by vascular may need a surgery patient is refusing everything including the radiologist patient says I do not want to do anything I want to go back to the rehab I am going to talk to my brother Dr. Miranda spoke to the Jose A brother who is not next of kin patient claims he has another brother who is next of kin patient is unable to give the name of the brother as well as the phone number and patient agrees to stay meanwhile here and get an IV antibiotic and do whatever we can besides the surgery and test s/p seen by psych
--- NOTE | 2018-08-13 18:06 | CP.PCM.PN ---
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 Patient is AAOX3. He denies of any acute overnight events and denies of any pain today. He reports that he applied some lotion over his left 2nd toes and his toes feels better like that. He denies of any pain. He denies any overnight F/N/V/C/SOB/CP/headache. He denies any other pedal complains. Objective - Vital Signs/Intake and Output Vital Signs (last 24 hours): Temp Pulse Resp BP Pulse Ox 97.2 F L 86 20 119/66 100 08/13/18 16:24 08/13/18 16:24 08/13/18 16:24 08/13/18 16:24 08/13/18 16:24 Intake and Output: 08/13/18 08/13/18 06:59 18:59 Intake Total 450 640 Output Total 450 Balance 450 190 - Medications Medications: Current Medications Albuterol/Ipratropium (Duoneb 3 Mg/0.5 Mg (3 Ml) Ud) 3 ml INH Q6 PRN PRN Reason: Shortness of Breath Docusate Sodium (Colace) 100 mg PO DAILY [facility] Last Admin: 08/13/18 10:24 Dose: 100 mg Enoxaparin Sodium (Lovenox) 30 mg SC DAILY [facility] Last Admin: 08/13/18 10:24 Dose: 30 mg Famotidine (Pepcid) 20 mg PO DAILY [facility] Last Admin: 08/13/18 10:24 Dose: 20 mg Gabapentin (Neurontin) 100 mg PO BID [facility] Last Admin: 08/13/18 17:21 Dose: 100 mg Cefepime HCl 1 gm/ Dextrose 50 mls @ 100 mls/hr IVPB Q12H [facility]; Protocol Last Admin: 08/13/18 06:02 Dose: 100 mls/hr Daptomycin 300 mg/ Sodium (Chloride) 100 mls @ 100 mls/hr IV Q24H [facility]; Protocol Stop: 08/16/18 16:01 Last Admin: 08/13/18 17:20 Dose: 100 mls/hr Lactobacillus Acidophilus (Lactobacillus) 1 cap PO BID [facility] Last Admin: 08/13/18 17:20 Dose: 1 cap Levothyroxine Sodium (Synthroid) 75 mcg PO DAILY@0630 [facility] Last Admin: 08/13/18 06:02 Dose: 75 mcg Magnesium Hydroxide (Milk Of Magnesia) 30 ml PO HS [facility] Last Admin: 08/12/18 21:29 Dose: Not Given Multivitamins (Hexavitamin) 1 tab PO DAILY [facility] Last Admin: 08/13/18 10:24 Dose: 1 tab Oxycodone HCl (Oxycodone Immediate Release Tab) 10 mg PO Q4H PRN PRN Reason: Pain, moderate (4-7) Last Admin: 08/13/18 06:04 Dose: 10 mg Spironolactone (Aldactone) 50 mg PO DAILY [facility] Last Admin: 08/13/18 10:24 Dose: 50 mg - Labs Labs: 08/13/18 07:02 08/13/18 07:02 PT 19.9 SECONDS (9.7-12.2) H 08/09/18 18:02 INR 1.8 08/09/18 18:02 APTT 37 SECONDS (21-34) H 08/09/18 18:02 - Constitutional Appears: Well, Non-toxic, No Acute Distress - Head Exam Head Exam: ATRAUMATIC, NORMOCEPHALIC - Extremities Exam Additional comments: Bilateral LE exam: VASC: DP pulses are very faintly palpable, PT pulses are non-palpable, Cap refill time: slightly delayed at approx 3 sec, Temp gradient: warm to cool from proximal to distal, mild non-pitting edema noted localized to the left foot/ankle accompanied with erythema NEURO: Protective sensation mildly diminished DERM: Dry black eschar noted on the dorsal aspect of the left 2nd digit with necrotic changes, interdigital maceration noted in the 4th interspace on the left with medial aspect of the 5th digit fully macerated with epidermal and dermal lysis, no active drainage, no malodor, erythema extending distal to the ankle joint, no probe to bone, no tunneling, no undermining, nails are hyperkeratotic and discolored and fully attached to the nail bed except for the hallux nail, hallux nail bed exposed. Skin overlying the lateral aspect of the left 5th MPJ is dark colored with thin rim of erythema surrounding it. MSK: pain on palpation of the left 5th digit wound, no pain during AROM of the digits of the left foot - Neurological Exam Neurological Exam: Alert, Awake, Oriented x3 - Psychiatric Exam Psychiatric exam: Normal Affect, Normal Mood Assessment and Plan - Assessment and Plan (Free Text) Assessment: 78 year old male evaluated for left foot 2nd digit gangrene and wound in the 4th interspace Plan: Patient seen and evaluated Discussed plan with attending Dr. Mcpherson Labs, vitals and charts reviewed - VSS, absent leukocytosis X-rays reviewed: no acute fractures or dislocations, no soft tissue emphysema, no evidence of OM Wound culture: E.Coli; Enterococcus Faecalis - Continue abx as per ID Vascular on board - CTA performed, severe calcifications in b/l LE vessels - AKA vs. Angio - Patient refused any surgical intervention from Vascular team Patient refused dressing change, Applied some lotion on his toes by himself, patient seems to be very non-complient. Patient to WBAT in surgical shoe No plan for surgical intervention from podiatry standpoint at this time - will treat conservatively Podiatry to follow up the patient while in-house
[2018-08-13] MEDS: Magnesium Hydroxide Susp 30 ml UD PO SCH (21:53)
[2018-08-14] MEDS: Levothyroxine 75 MCG TAB PO SCH (05:53)
[2018-08-14 07:59] LABS: BASO # 0.1 K/uL (0.0-0.2); BASO % 0.7 % (0.0-2.0); EOS % 0.5 % (0.0-4.0); HEMOGLOBIN 10.3 g/dL (12.0-18.0); LYMPH % 12.1 % (20.0-40.0); MEAN CELL VOLUME 92.1 fL (80.0-94.0); MEAN CORPUSCULAR HEMOGLOBIN 30.2 pg (27.0-31.0); MEAN CORPUSCULAR HGB CONC 32.8 g/dL (33.0-37.0); MEAN PLATELET VOLUME 7.8 fL (7.2-11.7); MONO # 0.7 K/uL (0.0-0.8); MONO % 8.9 % (0.0-10.0); NEUT # 6.3 K/uL (1.8-7.0); NEUT % 77.8 % (50.0-75.0); RBC 3.42 Mil/uL (4.40-5.90); RED CELL DISTRIBUTION WIDTH 16.5 % (11.5-14.5); WHITE BLOOD COUNT 8.1 K/uL (4.8-10.8)
[2018-08-14 08:13] LABS: ALB/GLOB RATIO 1.1 (1.0-2.1); ALBUMIN 3.6 g/dL (3.5-5.0); ALT/SGPT 15 U/L (21-72); AST/SGOT 22 U/L (17-59); BLOOD UREA NITROGEN 15 mg/dL (9-20); CALCIUM 9.6 mg/dl (8.6-10.4); GFR NON-AFRICAN AMERICAN > 60
[2018-08-14] MEDS: Lactobacillus Acidophilus 500 MU Cap PO SCH ×2 (09:31→17:15)
[2018-08-14] MEDS: Multiple Vitamins Tab PO SCH (09:32)
[2018-08-14] MEDS: Enoxaparin 30 mg Syringe SC SCH (09:32)
[2018-08-14] MEDS: oxyCODONE 10 mg Immediate Release Tab PO PRN ×2 (13:08→19:35)
--- NOTE | 2018-08-14 13:14 | CP.PCM.PN ---
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 Patient is AAOX3. He denies of any acute overnight events. Patient states that he has pain 8/10 today as he didn't receive his pain meds and he couldn't sleep yesterday night. He reports that he applied some lotion over his left toes and his toes feels better like that. He denies of any pain. He denies any overnight F/N/V/C/SOB/CP/headache. He denies any other pedal complains. Objective - Vital Signs/Intake and Output Vital Signs (last 24 hours): Temp Pulse Resp BP Pulse Ox 97.4 F L 82 20 120/70 97 08/14/18 08:05 08/14/18 08:05 08/14/18 08:05 08/14/18 08:05 08/14/18 08:05 Intake and Output: 08/14/18 08/14/18 06:59 18:59 Intake Total 390 250 Output Total 400 Balance 390 -150 - Medications Medications: Current Medications Albuterol/Ipratropium (Duoneb 3 Mg/0.5 Mg (3 Ml) Ud) 3 ml INH Q6 PRN PRN Reason: Shortness of Breath Docusate Sodium (Colace) 100 mg PO DAILY [facility] Last Admin: 08/14/18 09:32 Dose: 100 mg Enoxaparin Sodium (Lovenox) 30 mg SC DAILY [facility] Last Admin: 08/14/18 09:32 Dose: 30 mg Famotidine (Pepcid) 20 mg PO DAILY [facility] Last Admin: 08/14/18 09:32 Dose: 20 mg Gabapentin (Neurontin) 100 mg PO BID [facility] Last Admin: 08/14/18 09:32 Dose: 100 mg Cefepime HCl 1 gm/ Dextrose 50 mls @ 100 mls/hr IVPB Q12H [facility]; Protocol Last Admin: 08/14/18 05:56 Dose: 100 mls/hr Daptomycin 300 mg/ Sodium (Chloride) 100 mls @ 100 mls/hr IV Q24H [facility]; Protocol Stop: 08/16/18 16:01 Last Admin: 08/13/18 17:20 Dose: 100 mls/hr Lactobacillus Acidophilus (Lactobacillus) 1 cap PO BID [facility] Last Admin: 08/14/18 09:31 Dose: 1 cap Levothyroxine Sodium (Synthroid) 75 mcg PO DAILY@0630 [facility] Last Admin: 08/14/18 05:53 Dose: 75 mcg Magnesium Hydroxide (Milk Of Magnesia) 30 ml PO HS [facility] Last Admin: 08/13/18 21:53 Dose: Not Given Multivitamins (Hexavitamin) 1 tab PO DAILY [facility] Last Admin: 08/14/18 09:32 Dose: 1 tab Oxycodone HCl (Oxycodone Immediate Release Tab) 10 mg PO Q6 PRN PRN Reason: pain Last Admin: 08/14/18 13:08 Dose: 10 mg Spironolactone (Aldactone) 50 mg PO DAILY [facility] Last Admin: 08/14/18 09:32 Dose: 50 mg - Labs Labs: 08/14/18 07:52 08/14/18 07:52 PT 19.9 SECONDS (9.7-12.2) H 08/09/18 18:02 INR 1.8 08/09/18 18:02 APTT 37 SECONDS (21-34) H 08/09/18 18:02 - Constitutional Appears: No Acute Distress - Head Exam Head Exam: ATRAUMATIC, NORMOCEPHALIC - Extremities Exam Additional comments: Bilateral LE exam: VASC: DP pulses are very faintly palpable, PT pulses are non-palpable, Cap refill time: slightly delayed at approx 3 sec, Temp gradient: warm to cool from proximal to distal, mild non-pitting edema noted localized to the left foot/ankl e accompanied with erythema NEURO: Protective sensation mildly diminished DERM: Dry black eschar noted on the dorsal aspect of the left 2nd digit with necrotic changes, interdigital maceration noted in the 4th interspace on the left with medial aspect of the 5th digit fully macerated with epidermal and dermal lysis, no active drainage, no malodor, erythema extending distal to the ankle joint, no probe to bone, no tunneling, no undermining, nails are hyperkeratotic and discolored and fully attached to the nail bed except for the hallux nail, hallux nail bed exposed. Skin overlying the lateral aspect of the left 5th MPJ as well as the medial aspect of the [id number] MPJ is dark colored with thin rim of erythema surrounding it. MSK: pain on palpation of the left 5th digit wound, no pain during AROM of the digits of the left foot - Neurological Exam Neurological Exam: Alert, Awake, Oriented x3 Assessment and Plan - Assessment and Plan (Free Text) Assessment: 78 year old male evaluated for left foot 2nd digit gangrene and wound in the 4th interspace Plan: Patient seen and evaluated Discussed plan with attending Dr. Mcpherson Labs, vitals and charts reviewed - VSS, absent leukocytosis X-rays reviewed: no acute fractures or dislocations, no soft tissue emphysema, no evidence of OM Wound culture: E.Coli; Enterococcus Faecalis - Continue abx as per ID Vascular on board - CTA performed, severe calcifications in b/l LE vessels - AKA vs. Angio - Patient refused any surgical intervention from Vascular team Patient refused dressing change, betadine applied between his toes for maceration Patient to WBAT in surgical shoe No plan for surgical intervention from podiatry standpoint at this time - will treat conservatively Podiatry to follow up the patient while in-house
--- NOTE | 2018-08-14 16:12 | CP.PCM.PN ---
Subjective - Date & Time of Evaluation Date of Evaluation: 08/14/18 Time of Evaluation: 07:30 - Subjective Subjective: clinically same Objective - Vital Signs/Intake and Output Vital Signs (last 24 hours): Temp Pulse Resp BP Pulse Ox 97.3 F L 89 20 103/50 L 99 08/14/18 16:00 08/14/18 16:00 08/14/18 16:00 08/14/18 16:00 08/14/18 16:00 Intake and Output: 08/14/18 08/14/18 06:59 18:59 Intake Total 390 700 Output Total 400 Balance 390 300 - Medications Medications: Current Medications Albuterol/Ipratropium (Duoneb 3 Mg/0.5 Mg (3 Ml) Ud) 3 ml INH Q6 PRN PRN Reason: Shortness of Breath Docusate Sodium (Colace) 100 mg PO DAILY [facility] Last Admin: 08/14/18 09:32 Dose: 100 mg Enoxaparin Sodium (Lovenox) 30 mg SC DAILY [facility] Last Admin: 08/14/18 09:32 Dose: 30 mg Famotidine (Pepcid) 20 mg PO DAILY [facility] Last Admin: 08/14/18 09:32 Dose: 20 mg Gabapentin (Neurontin) 100 mg PO BID [facility] Last Admin: 08/14/18 09:32 Dose: 100 mg Cefepime HCl 1 gm/ Dextrose 50 mls @ 100 mls/hr IVPB Q12H [facility]; Protocol Last Admin: 08/14/18 05:56 Dose: 100 mls/hr Daptomycin 300 mg/ Sodium (Chloride) 100 mls @ 100 mls/hr IV Q24H [facility]; Protocol Stop: 08/16/18 16:01 Last Admin: 08/13/18 17:20 Dose: 100 mls/hr Lactobacillus Acidophilus (Lactobacillus) 1 cap PO BID [facility] Last Admin: 08/14/18 09:31 Dose: 1 cap Levothyroxine Sodium (Synthroid) 75 mcg PO DAILY@0630 [facility] Last Admin: 08/14/18 05:53 Dose: 75 mcg Magnesium Hydroxide (Milk Of Magnesia) 30 ml PO HS [facility] Last Admin: 08/13/18 21:53 Dose: Not Given Multivitamins (Hexavitamin) 1 tab PO DAILY [facility] Last Admin: 08/14/18 09:32 Dose: 1 tab Oxycodone HCl (Oxycodone Immediate Release Tab) 10 mg PO Q6 PRN PRN Reason: pain Last Admin: 08/14/18 13:08 Dose: 10 mg Spironolactone (Aldactone) 50 mg PO DAILY [facility] Last Admin: 08/14/18 09:32 Dose: 50 mg - Labs Labs: 08/14/18 07:52 08/14/18 07:52 PT 19.9 SECONDS (9.7-12.2) H 08/09/18 18:02 INR 1.8 08/09/18 18:02 APTT 37 SECONDS (21-34) H 08/09/18 18:02 - Constitutional Appears: Well - Head Exam Head Exam: ATRAUMATIC, NORMAL INSPECTION, NORMOCEPHALIC - Eye Exam Eye Exam: EOMI, Normal appearance, PERRL Pupil Exam: NORMAL ACCOMODATION, PERRL - ENT Exam ENT Exam: Mucous Membranes Moist, Normal Exam - Neck Exam Neck Exam: Full ROM, Normal Inspection. absent: Lymphadenopathy - Respiratory Exam Respiratory Exam: Decreased Breath Sounds - Cardiovascular Exam Cardiovascular Exam: REGULAR RHYTHM, +S1, +S2 - GI/Abdominal Exam GI & Abdominal Exam: Soft, Diminished Bowel Sounds - Rectal Exam Rectal Exam: Deferred
[2018-08-14] MEDS: Magnesium Hydroxide Susp 30 ml UD PO SCH (21:46)
[2018-08-15] MEDS: Levothyroxine 75 MCG TAB PO SCH (06:16)
[2018-08-15] MEDS: oxyCODONE 10 mg Immediate Release Tab PO PRN (06:16)
--- NOTE | 2018-08-15 10:03 | CP.PCM.PN ---
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 Patient is AAOX3. He denies of any acute overnight events. Reports that he has little pain if someone touches his toes. States that he does not want any dressing placed on his foot. He denies any overnight F/N/V/C/SOB/CP/headache. He denies any other pedal complains. Objective - Vital Signs/Intake and Output Vital Signs (last 24 hours): Temp Pulse Resp BP Pulse Ox 96.9 F L 68 16 128/76 98 08/15/18 00:00 08/15/18 00:00 08/15/18 00:00 08/15/18 00:00 08/15/18 00:00 Intake and Output: 08/15/18 08/15/18 06:59 18:59 Intake Total 410 Output Total 550 Balance -140 - Medications Medications: Current Medications Docusate Sodium (Colace) 100 mg PO DAILY [facility] Last Admin: 08/14/18 09:32 Dose: 100 mg Enoxaparin Sodium (Lovenox) 30 mg SC DAILY [facility] Last Admin: 08/14/18 09:32 Dose: 30 mg Famotidine (Pepcid) 20 mg PO DAILY [facility] Last Admin: 08/14/18 09:32 Dose: 20 mg Gabapentin (Neurontin) 100 mg PO BID [facility] Last Admin: 08/14/18 17:15 Dose: 100 mg Daptomycin 300 mg/ Sodium (Chloride) 100 mls @ 100 mls/hr IV Q24H [facility]; Protocol Stop: 08/16/18 16:01 Last Admin: 08/14/18 17:15 Dose: 100 mls/hr Lactobacillus Acidophilus (Lactobacillus) 1 cap PO BID [facility] Last Admin: 08/14/18 17:15 Dose: 1 cap Levothyroxine Sodium (Synthroid) 75 mcg PO DAILY@0630 [facility] Last Admin: 08/15/18 06:16 Dose: 75 mcg Magnesium Hydroxide (Milk Of Magnesia) 30 ml PO HS [facility] Last Admin: 08/14/18 21:46 Dose: 30 ml Multivitamins (Hexavitamin) 1 tab PO DAILY [facility] Last Admin: 08/14/18 09:32 Dose: 1 tab Oxycodone HCl (Oxycodone Immediate Release Tab) 10 mg PO Q6 PRN PRN Reason: pain Last Admin: 08/15/18 06:16 Dose: 10 mg Spironolactone (Aldactone) 50 mg PO DAILY [facility] Last Admin: 08/14/18 09:32 Dose: 50 mg - Labs Labs: 08/14/18 07:52 08/14/18 07:52 PT 19.9 SECONDS (9.7-12.2) H 08/09/18 18:02 INR 1.8 08/09/18 18:02 APTT 37 SECONDS (21-34) H 08/09/18 18:02 - Constitutional Appears: Well, Non-toxic, No Acute Distress - Extremities Exam Additional comments: Bilateral LE exam: VASC: DP pulses are very faintly palpable, PT pulses are non-palpable, Cap refill time: slightly delayed at approx 3 sec, Temp gradient: warm to cool from proximal to distal, mild non-pitting edema noted localized to the left foot/ankle accompanied with erythema NEURO: Protective sensation mildly diminished DERM: Dry black eschar noted on the dorsal aspect of the left 2nd digit with necrotic changes, interdigital maceration noted in the 4th interspace on the left with medial aspect of the 5th digit fully macerated with epidermal and dermal lysis, no active drainage, no malodor, erythema extending distal to the ankle joint, no probe to bone, no tunneling, no undermining, nails are hyperkeratotic and discolored and fully attached to the nail bed except for the hallux nail, hallux nail bed exposed. Skin overlying the lateral aspect of the left 5th MPJ as well as the medial aspect of the left 1st MPJ is dark colored with thin rim of erythema surrounding it. MSK: pain on palpation of the left 5th digit wound, no pain during AROM of the digits of the left foot - Neurological Exam Neurological Exam: Alert, Awake, Oriented x3 - Psychiatric Exam Psychiatric exam: Normal Affect, Normal Mood Assessment and Plan - Assessment and Plan (Free Text) Assessment: 78 year old male evaluated for left foot 2nd digit gangrene and wound in the 4th interspace Plan: Patient seen and evaluated Discussed plan with attending Dr. Mcpherson Labs, vitals and charts reviewed - VSS, absent leukocytosis X-rays reviewed: no acute fractures or dislocations, no soft tissue emphysema, no evidence of OM Wound culture: E.Coli; Enterococcus Faecalis - Continue abx as per ID Vascular on board - CTA performed, severe calcifications in b/l LE vessels - AKA vs. Angio - Patient refused any surgical intervention from vascular team Patient refused dressing change, betadine applied between his toes for maceration Patient to WBAT in surgical shoe No plan for surgical intervention from podiatry standpoint at this time - will treat conservatively Podiatry to follow up the patient while in-house
[2018-08-15] MEDS: Enoxaparin 30 mg Syringe SC SCH (10:28)
[2018-08-15] MEDS: Multiple Vitamins Tab PO SCH (10:28)
[2018-08-15] MEDS: Lactobacillus Acidophilus 500 MU Cap PO SCH ×2 (10:28→17:37)
--- NOTE | 2018-08-15 14:48 | CP.PCM.PN ---
Subjective - Date & Time of Evaluation Date of Evaluation: 08/15/18 Time of Evaluation: 07:30 - Subjective Subjective: clinically same Objective - Vital Signs/Intake and Output Vital Signs (last 24 hours): Temp Pulse Resp BP Pulse Ox 96.9 F L 68 16 128/76 98 08/15/18 00:00 08/15/18 00:00 08/15/18 00:00 08/15/18 00:00 08/15/18 00:00 Intake and Output: 08/15/18 08/15/18 06:59 18:59 Intake Total 410 450 Output Total 550 Balance -140 450 - Medications Medications: Current Medications Docusate Sodium (Colace) 100 mg PO DAILY [facility] Last Admin: 08/15/18 10:27 Dose: 100 mg Enoxaparin Sodium (Lovenox) 30 mg SC DAILY [facility] Last Admin: 08/15/18 10:28 Dose: 30 mg Famotidine (Pepcid) 20 mg PO DAILY [facility] Last Admin: 08/15/18 10:28 Dose: 20 mg Gabapentin (Neurontin) 100 mg PO BID [facility] Last Admin: 08/15/18 10:28 Dose: 100 mg Daptomycin 300 mg/ Sodium (Chloride) 100 mls @ 100 mls/hr IV Q24H [facility]; Protocol Stop: 08/16/18 16:01 Last Admin: 08/14/18 17:15 Dose: 100 mls/hr Lactobacillus Acidophilus (Lactobacillus) 1 cap PO BID [facility] Last Admin: 08/15/18 10:28 Dose: 1 cap Levothyroxine Sodium (Synthroid) 75 mcg PO DAILY@0630 [facility] Last Admin: 08/15/18 06:16 Dose: 75 mcg Magnesium Hydroxide (Milk Of Magnesia) 30 ml PO HS [facility] Last Admin: 08/14/18 21:46 Dose: 30 ml Multivitamins (Hexavitamin) 1 tab PO DAILY [facility] Last Admin: 08/15/18 10:28 Dose: 1 tab Oxycodone HCl (Oxycodone Immediate Release Tab) 10 mg PO Q6 PRN PRN Reason: pain Last Admin: 08/15/18 06:16 Dose: 10 mg Spironolactone (Aldactone) 50 mg PO DAILY [facility] Last Admin: 08/15/18 10:28 Dose: 50 mg - Labs Labs: 08/14/18 07:52 08/14/18 07:52 PT 19.9 SECONDS (9.7-12.2) H 08/09/18 18:02 INR 1.8 08/09/18 18:02 APTT 37 SECONDS (21-34) H 08/09/18 18:02 - Constitutional Appears: Well - Head Exam Head Exam: ATRAUMATIC, NORMAL INSPECTION, NORMOCEPHALIC - Eye Exam Eye Exam: EOMI, Normal appearance, PERRL Pupil Exam: NORMAL ACCOMODATION, PERRL - ENT Exam ENT Exam: Mucous Membranes Moist, Normal Exam - Neck Exam Neck Exam: Full ROM, Normal Inspection. absent: Lymphadenopathy - Respiratory Exam Respiratory Exam: Decreased Breath Sounds - Cardiovascular Exam Cardiovascular Exam: REGULAR RHYTHM, +S1, +S2 - GI/Abdominal Exam GI & Abdominal Exam: Soft, Diminished Bowel Sounds - Rectal Exam Rectal Exam: Deferred
[2018-08-15 16:00] VITALS: RESP 20
--- NOTE | 2018-08-15 16:20 | CP.PCM.PN ---
Subjective - Date & Time of Evaluation Date of Evaluation: 08/15/18 Time of Evaluation: 16:40 - Subjective Subjective: dictated Objective - Vital Signs/Intake and Output Vital Signs (last 24 hours): Temp Pulse Resp BP Pulse Ox 97.6 F 99 H 20 124/61 99 08/15/18 15:58 08/15/18 15:58 08/15/18 15:58 08/15/18 15:58 08/15/18 15:58 Intake and Output: 08/15/18 08/15/18 06:59 18:59 Intake Total 410 450 Output Total 550 Balance -140 450 - Medications Medications: Current Medications Docusate Sodium (Colace) 100 mg PO DAILY [facility] Last Admin: 08/15/18 10:27 Dose: 100 mg Enoxaparin Sodium (Lovenox) 30 mg SC DAILY [facility] Last Admin: 08/15/18 10:28 Dose: 30 mg Famotidine (Pepcid) 20 mg PO DAILY [facility] Last Admin: 08/15/18 10:28 Dose: 20 mg Gabapentin (Neurontin) 100 mg PO BID [facility] Last Admin: 08/15/18 10:28 Dose: 100 mg Piperacillin Sod/Tazobactam Sod (Zosyn 3.375 Gm Iv Premix) 3.375 gm in 50 mls @ 100 mls/hr IVPB Q8H [facility]; Protocol Lactobacillus Acidophilus (Lactobacillus) 1 cap PO BID [facility] Last Admin: 08/15/18 10:28 Dose: 1 cap Levothyroxine Sodium (Synthroid) 75 mcg PO DAILY@0630 [facility] Last Admin: 08/15/18 06:16 Dose: 75 mcg Magnesium Hydroxide (Milk Of Magnesia) 30 ml PO HS [facility] Last Admin: 08/14/18 21:46 Dose: 30 ml Multivitamins (Hexavitamin) 1 tab PO DAILY [facility] Last Admin: 08/15/18 10:28 Dose: 1 tab Oxycodone HCl (Oxycodone Immediate Release Tab) 10 mg PO Q6 PRN PRN Reason: pain Last Admin: 08/15/18 06:16 Dose: 10 mg Spironolactone (Aldactone) 50 mg PO DAILY [facility] Last Admin: 08/15/18 10:28 Dose: 50 mg - Labs Labs: 08/14/18 07:52 08/14/18 07:52 PT 19.9 SECONDS (9.7-12.2) H 08/09/18 18:02 INR 1.8 08/09/18 18:02 APTT 37 SECONDS (21-34) H 08/09/18 18:02
[2018-08-15] MEDS: Piperacill/Tazo 3.375gm in Dex 3.375 GM/50 ML BAG IVPB SCH (17:37)
[2018-08-15] MEDS: Magnesium Hydroxide Susp 30 ml UD PO SCH (21:58)
--- NOTE | 2018-08-16 00:22 | PN ---
DATE: 08/15/2018 SUBJECTIVE: The patient was almost getting ready to get out of here. He wanted to [facility] jail. He does have a gangrene of the left second toe and wound in the fourth interspace. He does not want anything to be done and the foot appears ischemic. He does not want any dressing to be placed on his foot. He denies any other symptoms. No fever, no chills and no other complaints. He says the doctor told him that the scab will fall off soon and it will be fine. He only has a and I wanted to give him a few more days of antibiotics. PHYSICAL EXAMINATION: VITAL SIGNS: T-max is 97.6, pulse 99, blood pressure 124/61, respirations are 20. GENERAL: He is alert and oriented. HEENT: Head is atraumatic and normocephalic. HEENT exam is unremarkable. NECK: Supple. JVP is flat. LUNGS: Decreased breath sounds bilaterally. HEART: S1, S2 present. ABDOMEN: Soft, nontender. EXTREMITIES: Left foot has more ischemic changes and gangrenous second toe and wound between the fourth interdigital cleft. LABORATORY DATA: Labs are noted. Labs show micro teresa that there is E. coli and Enterococcus. ASSESSMENT AND PLAN: To give one drug, I think Zosyn would cover partially Enterococcus as well as Escherichia coli and we will give it for five more days, so we started it today. Discontinue vancomycin and discontinue Maxipime. The patient needs to be followed up in the rehab if need be for further antibiotics. Otherwise, it appears mostly ischemic cellulitis of the foot with ischemic changes and he has peripheral vascular disease. His creatinine, however, has improved and so, I have discontinued the daptomycin. We will follow if needed. Elly Moctezuma MD
[2018-08-16] MEDS: Piperacill/Tazo 3.375gm in Dex 3.375 GM/50 ML BAG IVPB SCH ×2 (00:32→09:30)
[2018-08-16] MEDS: Levothyroxine 75 MCG TAB PO SCH (06:34)
[2018-08-16 08:01] VITALS: BP 98/60; PULSE 87; TEMP 97.6; O2SAT 97
[2018-08-16] MEDS: Lactobacillus Acidophilus 500 MU Cap PO SCH (09:29)
[2018-08-16] MEDS: Multiple Vitamins Tab PO SCH (09:29)
[2018-08-16] MEDS: Enoxaparin 30 mg Syringe SC SCH (09:30)
--- NOTE | 2018-08-16 11:57 | CP.PCM.PN ---
Subjective - Date & Time of Evaluation Date of Evaluation: 08/16/18 Time of Evaluation: 11:55 - Subjective Subjective: Podiatry Progress Note: Dr. Mcpherson 78 year old male was seen and evaluated at bedside for left foot 2nd digit gangrene and wound in the 4th interspace. Patient is AAOX3. He denies of any acute overnight events. Patient that he still has pain if someone touches his toes. States that he does not want any dressing placed on his foot. He denies any overnight F/N/V/C/SOB/CP/headache. He denies any other pedal complains. Objective - Vital Signs/Intake and Output Vital Signs (last 24 hours): Temp Pulse Resp BP Pulse Ox 97.6 F 87 20 98/60 L 97 08/16/18 08:00 08/16/18 08:00 08/16/18 08:00 08/16/18 08:00 08/16/18 08:00 Intake and Output: 08/16/18 08/16/18 06:59 18:59 Intake Total 450 250 Output Total 400 200 Balance 50 50 - Medications Medications: Current Medications Docusate Sodium (Colace) 100 mg PO DAILY COUNTS INCLUDE 234 BEDS AT THE [facility] Last Admin: 08/16/18 09:30 Dose: 100 mg Enoxaparin Sodium (Lovenox) 30 mg SC DAILY COUNTS INCLUDE 234 BEDS AT THE [facility] Last Admin: 08/16/18 09:30 Dose: 30 mg Famotidine (Pepcid) 20 mg PO DAILY COUNTS INCLUDE 234 BEDS AT THE [facility] Last Admin: 08/16/18 09:29 Dose: 20 mg Gabapentin (Neurontin) 100 mg PO BID COUNTS INCLUDE 234 BEDS AT THE [facility] Last Admin: 08/16/18 09:30 Dose: 100 mg Piperacillin Sod/Tazobactam Sod (Zosyn 3.375 Gm Iv Premix) 3.375 gm in 50 mls @ 100 mls/hr IVPB Q8H COUNTS INCLUDE 234 BEDS AT THE [facility]; Protocol Last Admin: 08/16/18 09:30 Dose: 100 mls/hr Lactobacillus Acidophilus (Lactobacillus) 1 cap PO BID COUNTS INCLUDE 234 BEDS AT THE [facility] Last Admin: 08/16/18 09:29 Dose: 1 cap Levothyroxine Sodium (Synthroid) 75 mcg PO DAILY@0630 COUNTS INCLUDE 234 BEDS AT THE [facility] Last Admin: 08/16/18 06:34 Dose: 75 mcg Magnesium Hydroxide (Milk Of Magnesia) 30 ml PO HS COUNTS INCLUDE 234 BEDS AT THE [facility] Last Admin: 08/15/18 21:58 Dose: 30 ml Multivitamins (Hexavitamin) 1 tab PO DAILY COUNTS INCLUDE 234 BEDS AT THE [facility] Last Admin: 08/16/18 09:29 Dose: 1 tab Oxycodone HCl (Oxycodone Immediate Release Tab) 10 mg PO Q6 PRN PRN Reason: pain Last Admin: 08/15/18 06:16 Dose: 10 mg Spironolactone (Aldactone) 50 mg PO DAILY COUNTS INCLUDE 234 BEDS AT THE [facility] Last Admin: 08/16/18 09:31 Dose: Not Given - Labs Labs: 08/14/18 07:52 08/14/18 07:52 PT 19.9 SECONDS (9.7-12.2) H 08/09/18 18:02 INR 1.8 08/09/18 18:02 APTT 37 SECONDS (21-34) H 08/09/18 18:02 - Constitutional Appears: Well, Non-toxic, No Acute Distress - Head Exam Head Exam: ATRAUMATIC, NORMOCEPHALIC - Extremities Exam Additional comments: Bilateral LE exam: VASC: DP pulses are very faintly palpable, PT pulses are non-palpable, Cap refill time: slightly delayed at approx 3 sec, Temp gradient: warm to cool from proximal to distal, mild non-pitting edema noted localized to the left foot/ankle accompanied with erythema NEURO: Protective sensation mildly diminished DERM: Dry black eschar noted on the dorsal aspect of the left 2nd digit with necrotic changes, interdigital maceration noted in the 4th interspace on the left with medial aspect of the 5th digit fully macerated with epidermal and dermal lysis, no active drainage, no malodor, erythema extending distal to the ankle joint, no probe to bone, no tunneling, no undermining, nails are hype rkeratotic and discolored and fully attached to the nail bed except for the hallux nail, hallux nail bed exposed. Skin overlying the lateral aspect of the left 5th MPJ as well as the medial aspect of the left 1st MPJ is dark colored with thin rim of erythema surrounding it. MSK: pain on palpation of the left 5th digit wound, no pain during AROM of the digits of the left foot - Neurological Exam Neurological Exam: Alert, Awake, Oriented x3 Assessment and Plan - Assessment and Plan (Free Text) Assessment: 78 year old male evaluated for left foot 2nd digit gangrene and wound in the 4th interspace Plan: Patient seen and evaluated Discussed plan with attending Dr. Mcpherson Labs, vitals and charts reviewed - VSS, absent leukocytosis X-rays reviewed: no acute fractures or dislocations, no soft tissue emphysema, no evidence of OM Wound culture: E.Coli; Enterococcus Faecalis - Continue abx as per ID Vascular on board - CTA performed, severe calcifications in b/l LE vessels - AKA vs. Angio - Patient refused any surgical intervention from vascular team Patient refused dressing change, betadine applied between his toes for maceration Patient to WBAT in surgical shoe No plan for surgical intervention from podiatry standpoint at this time - will treat conservatively Podiatry to follow up the patient while in-house
--- NOTE | 2018-08-16 12:06 | CP.PCM.PN ---
Subjective - Date & Time of Evaluation Date of Evaluation: 08/16/18 Time of Evaluation: 07:30 - Subjective Subjective: clinically same Objective - Vital Signs/Intake and Output Vital Signs (last 24 hours): Temp Pulse Resp BP Pulse Ox 97.6 F 87 20 98/60 L 97 08/16/18 08:00 08/16/18 08:00 08/16/18 08:00 08/16/18 08:00 08/16/18 08:00 Intake and Output: 08/16/18 08/16/18 06:59 18:59 Intake Total 450 250 Output Total 400 200 Balance 50 50 - Medications Medications: Current Medications Docusate Sodium (Colace) 100 mg PO DAILY [facility] Last Admin: 08/16/18 09:30 Dose: 100 mg Enoxaparin Sodium (Lovenox) 30 mg SC DAILY [facility] Last Admin: 08/16/18 09:30 Dose: 30 mg Famotidine (Pepcid) 20 mg PO DAILY [facility] Last Admin: 08/16/18 09:29 Dose: 20 mg Gabapentin (Neurontin) 100 mg PO BID [facility] Last Admin: 08/16/18 09:30 Dose: 100 mg Piperacillin Sod/Tazobactam Sod (Zosyn 3.375 Gm Iv Premix) 3.375 gm in 50 mls @ 100 mls/hr IVPB Q8H [facility]; Protocol Last Admin: 08/16/18 09:30 Dose: 100 mls/hr Lactobacillus Acidophilus (Lactobacillus) 1 cap PO BID [facility] Last Admin: 08/16/18 09:29 Dose: 1 cap Levothyroxine Sodium (Synthroid) 75 mcg PO DAILY@0630 [facility] Last Admin: 08/16/18 06:34 Dose: 75 mcg Magnesium Hydroxide (Milk Of Magnesia) 30 ml PO HS [facility] Last Admin: 08/15/18 21:58 Dose: 30 ml Multivitamins (Hexavitamin) 1 tab PO DAILY [facility] Last Admin: 08/16/18 09:29 Dose: 1 tab Oxycodone HCl (Oxycodone Immediate Release Tab) 10 mg PO Q6 PRN PRN Reason: pain Last Admin: 08/15/18 06:16 Dose: 10 mg Spironolactone (Aldactone) 50 mg PO DAILY [facility] Last Admin: 08/16/18 09:31 Dose: Not Given - Labs Labs: 08/14/18 07:52 02/10/19 07:52 PT 19.9 SECONDS (9.7-12.2) H 08/09/18 18:02 INR 1.8 08/09/18 18:02 APTT 37 SECONDS (21-34) H 08/09/18 18:02
== END 2018-08-16 12:31 | disposition home or self-care (01) | DRG 300 ==
LOC: C.ER 17:08 → C.9E 22:31 → C.3T 23:00
PROVIDERS: ADMIT Internal Medicine Nephrology; ATTEND Internal Medicine Nephrology
DX: I70.262 Atherosclerosis of native arteries of extremities with gangrene, left leg (principal); L03.116 Cellulitis of left lower limb; L97.523 Non-pressure chronic ulcer of other part of left foot with necrosis of muscle; B95.2 Enterococcus as the cause of diseases classified elsewhere; I50.9 Heart failure, unspecified; I11.0 Hypertensive heart disease with heart failure; L60.0 Ingrowing nail; E03.9 Hypothyroidism, unspecified; I48.91 Unspecified atrial fibrillation; J43.9 Emphysema, unspecified; K59.00 Constipation, unspecified; F17.210 Nicotine dependence, cigarettes, uncomplicated; Z53.29 Procedure and treatment not carried out because of patient's decision for other reasons; Z79.890 Hormone replacement therapy; Z79.899 Other long term (current) drug therapy; Z86.711 Personal history of pulmonary embolism; Z87.440 Personal history of urinary (tract) infections

== ENCOUNTER 2018-09-03 05:54 | Inpatient (IN) | payer MEDICARE, MEDICAID ==
[2018-09-03 05:54] VITALS: PULSE 120; BMI 15.3
--- NOTE | 2018-09-03 06:39 | C.PDOC ---
History Of Present Illness 78 year old male is sent to the ED from [facility] with complaints of pain to the left foot. Patient has a history of PVD, patient sent to be re-evaluated by a packaging assembler. <Alisia Narayan - Last Filed: 09/03/18 07:10> History Per: Patient History/Exam Limitations: no limitations Onset/Duration Of Symptoms: Other (chronic) Current Symptoms Are (Timing): Still Present - Ankle/Foot Description Of Injury: Other (painful) <Alisia Narayan - Last Filed: 09/03/18 07:10> <Leeroy Gan V - Last Filed: 09/03/18 08:26> Time Seen by Provider: 09/03/18 06:31 Chief Complaint (Nursing): Lower Extremity Problem/Injury Past Medical History Reviewed: Historical Data, Nursing Documentation, Vital Signs Vital Signs: Last Vital Signs Temp 98.2 F 09/03/18 06:00 Pulse 98 H 09/03/18 06:00 Resp 20 09/03/18 06:00 BP 111/61 09/03/18 06:00 Pulse Ox 100 09/03/18 06:00 - Medical History PMH: Arthritis (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; BACK NECK), Atrial Fibrillation, CHF, COPD (emphysema (per CT/chest)), HTN, Hypothyroidism, Pulmonary Embolism Denies: Chronic Kidney Disease Other PMH: Peripheral Vascular Disease Surgical History: Back Surgery, Tonsillectomy - [facility] Procedures ASSISTANCE WITH RESPIRATORY VENTILATION, 24-96 HRS, CPAP (10/10/15) DRAINAGE OF LEFT PLEURAL CAVITY, PERCUTANEOUS APPROACH (03/17/16) DRAINAGE OF RIGHT PLEURAL CAVITY, PERCUTANEOUS APPROACH (03/17/16) INSERTION OF ENDOTRACHEAL AIRWAY INTO TRACHEA, VIA OPENING (03/17/16) INTRODUCTION OF SERUM/TOX/VACCINE INTO MUSCLE, PERC APPROACH (03/17/16) PERFORMANCE OF CARDIAC OUTPUT, SINGLE, MANUAL (03/17/16) RESPIRATORY VENTILATION, 24-96 CONSECUTIVE HOURS (03/17/16) Family History: States: Unknown Family Hx - Social History Hx Tobacco Use: Yes Hx Alcohol Use: No Hx Substance Use: No - Immunization History Hx Tetanus Toxoid Vaccination: No Hx Influenza Vaccination: No Hx Pneumococcal Vaccination: No <Alisia Narayan - Last Filed: 09/03/18 07:10> Vital Signs: Last Vital Signs Temp 98.2 F 09/03/18 06:00 Pulse 98 H 09/03/18 06:00 Resp 20 09/03/18 06:00 BP 111/61 09/03/18 06:00 Pulse Ox 100 09/03/18 07:11 - [facility] Procedures ASSISTANCE WITH RESPIRATORY VENTILATION, 24-96 HRS, CPAP (10/10/15) DRAINAGE OF LEFT PLEURAL CAVITY, PERCUTANEOUS APPROACH (03/17/16) DRAINAGE OF RIGHT PLEURAL CAVITY, PERCUTANEOUS APPROACH (03/17/16) INSERTION OF ENDOTRACHEAL AIRWAY INTO TRACHEA, VIA OPENING (03/17/16) INTRODUCTION OF SERUM/TOX/VACCINE INTO MUSCLE, PERC APPROACH (03/17/16) PERFORMANCE OF CARDIAC OUTPUT, SINGLE, MANUAL (03/17/16) RESPIRATORY VENTILATION, 24-96 CONSECUTIVE HOURS (03/17/16) <Leeroy Gan V - Last Filed: 09/03/18 08:26> Review Of Systems Except As Marked, All Systems Reviewed And Found Negative. Constitutional: Negative for: Fever, Chills Cardiovascular: Negative for: Palpitations Respiratory: Negative for: Cough, Shortness of Breath Gastrointestinal: Negative for: Nausea, Vomiting, Abdominal Pain Musculoskeletal: Positive for: Foot Pain (left) <Alisia Narayan - Last Filed: 09/03/18 07:10> Physical Exam - Physical Exam Appears: Non-toxic, No Acute Distress Skin: Normal Color, Warm, Dry Head: Atraumatic, Normacephalic Eye(s): bilateral: Normal Inspection, PERRL, EOMI Nose: Normal Neck: Normal, Supple Chest: Symmetrical, No Tenderness Cardiovascular: Rhythm Regular, No Murmur Respiratory: Normal Breath Sounds, No Rales, No Rhonchi, No Wheezing Gastrointestinal/Abdominal: Soft, No Tenderness, No Guarding, No Rebound Extremity: Other (chronic ulcer present at 2nd toe of the right foot. Great toe and 2nd toe of left foot necrotic with no pulse. No palpable pedal pulses.) Pulses: Left Dorsalis Pedis: Absent, Right Dorsalis Pedis: Absent Neurological/Psych: Oriented x3, Normal Speech, Normal Cognition <Alisia Narayan - Last Filed: 09/03/18 07:10> ED Course And Treatment - Laboratory Results Result Diagrams: 09/03/18 06:50 O2 Sat by Pulse Oximetry: 100 Progress Note: Plan: VBG Shock Panel. Chemistry. Bloodwork. Blood Culture <Alisia Narayan - Last Filed: 09/03/18 07:10> - Laboratory Results Result Diagrams: 09/03/18 06:50 09/03/18 06:50 Lab Results: pO2 21 mm/Hg (30-55) L 09/03/18 06:50 VBG pH 7.35 (7.32-7.43) 09/03/18 06:50 VBG pCO2 46 mmHg (40-60) 09/03/18 06:50 VBG HCO3 22.7 mmol/L 09/03/18 06:50 VBG Total CO2 26.8 mmol/L (22-28) 09/03/18 06:50 VBG O2 Sat (Calc) 38.5 % (40-65) L 09/03/18 06:50 VBG Base Excess -0.6 mmol/L (0.0-2.0) L 09/03/18 06:50 VBG Potassium 4.9 mmol/L (3.6-5.2) 09/03/18 06:50 Sodium 135.0 mmol/l (132-148) 09/03/18 06:50 Chloride 100.0 mmol/L (98-107) 09/03/18 06:50 Glucose 83 mg/dl (75-110) 09/03/18 06:50 Lactate 1.5 mmol/L (0.7-2.1) 09/03/18 06:50 PT 23.1 SECONDS (9.7-12.2) H 09/03/18 06:50 INR 2.1 09/03/18 06:50 APTT 44 SECONDS (21-34) H 09/03/18 06:50 Total Bilirubin 0.5 mg/dL (0.2-1.3) 09/03/18 06:50 AST 21 U/L (17-59) 09/03/18 06:50 ALT 11 U/L (21-72) L D 09/03/18 06:50 Alkaline Phosphatase 116 U/L (38-126) 09/03/18 06:50 Total Protein 7.7 g/dL (6.3-8.3) 09/03/18 06:50 Albumin 3.9 g/dL (3.5-5.0) 09/03/18 06:50 Globulin 3.8 gm/dL (2.2-3.9) 09/03/18 06:50 Albumin/Globulin Ratio 1.0 (1.0-2.1) 09/03/18 06:50 <Leeroy Gan V - Last Filed: 09/03/18 08:26> Disposition - Disposition Disposition Time: 07:11 <Alisia Narayan - Last Filed: 09/03/18 07:10> <Leeroy Gan V - Last Filed: 09/03/18 08:26> - Disposition Condition: FAIR Forms: [employer] ([place]zeri) - Clinical Impression Clinical Impression: Gangrene of toe of left foot, Skin ulcer of toe of left foot with necrosis of muscle - PA / ENROLLMENT MANAGER / Resident Statement MD/DO has reviewed & agrees with the documentation as recorded. - Scribe Statement The provider has reviewed the documentation as recorded by the Scribe (Yuri Patel) All medical record entries made by the Scribe were at my direction and personally dictated by me. I have reviewed the chart and agree that the record accurately reflects my personal performance of the history, physical exam, medical decision making, and the department course for this patient. I have also personally directed, reviewed, and agree with the discharge instructions and disposition. <Alisia Narayan - Last Filed: 09/03/18 07:10> Physician Patient Turnover Patient Signed Over To: Leeroy Gan V Handoff Comments: re-eval, dispo <Alisia Narayan - Last Filed: 09/03/18 07:10> Addendum Addendum: 09/03/18 08:14 Pt signed out to me by overnight EDIS Brantley. EKG: atrial fibrillation. ventricular rate [address] elevation. KNEE XRAY: no gas in soft tissue CXR: Normal. No infiltrates. No cardiomegaly. The provider has reviewed the documentation as recorded by the Scribe, Pati Naranjo. All medical record entries made by the Scribe were at my direction and personally dictated by me. I have reviewed the chart and agree that the record accurately reflects my personal performance of the history, physical exam, medical decision making, and the department course for this patient. I have also personally directed, reviewed, and agree with the discharge instructions and disposition. 09/03/18 08:19 8:17am : Spoke with Dr. Jaime Anderson, who agreed to admission. <Leeroy Gan V - Last Filed: 09/03/18 08:26> Decision To Admit <Alisia Narayan - Last Filed: 09/03/18 07:10> - Pt Status Changed To: Hospital Disposition Of: Inpatient - Admit Certification Admit to Inpatient:: After my assessment, the patient will require hospitalization for at least two midnights. This is because of the severity of symptoms shown, intensity of services needed, and/or the medical risk in this patient being treated as an outpatient. - InPatient: Physician Admission Certification: I certify that this patient requires 2 or mor e midnights of care for the following reason:: Toe gangrene, vacular ooclusion - . Bed Request Type: Telemetry (a. fib) Admitting Physician: Mitchell Anderson <Leeroy Gan V - Last Filed: 09/03/18 08:26> - . Patient Diagnosis: Gangrene of toe of left foot, Toe gangrene, Atrial fibrillation, Vascular occlusion
[2018-09-03 06:54] LABS: VENOUS BLOOD GAS BASE EXCESS -0.6 mmol/L (0.0-2.0); VENOUS BLOOD GAS PCO2 46 mmHg (40-60); VENOUS BLOOD GAS PO2 21 mm/Hg (30-55); VENOUS BLOOD PH 7.35 (7.32-7.43)
[2018-09-03] MEDS ORDERED: Vancomycin 1 GM 1 GM/250 ML BAG IV STA (06:55)
[2018-09-03] MEDS ORDERED: Piperacillin/Tazobact 3.375 gm 100 ML IV STA (06:55)
[2018-09-03] MEDS ORDERED: Piperacillin/Tazobact 3.375 gm 100 ML IVPB ONE (07:02)
[2018-09-03 07:06] LABS: ALBUMIN 3.9 g/dL (3.5-5.0); INR 2.1; PROTHROMBIN TIME 23.1 SECONDS (9.7-12.2)
[2018-09-03] MEDS ORDERED: Vancomycin 1 GM 1 GM/250 ML BAG IVPB ONE (07:46)
[2018-09-03 08:08] LABS: BASO # 0.1 K/uL (0.0-0.2); EOS # 0.1 K/uL (0.0-0.7); EOS % 0.7 % (0.0-4.0); HEMOGLOBIN 10.4 g/dL (12.0-18.0); LYMPH # 1.4 K/uL (1.0-4.3); LYMPH % 17.9 % (20.0-40.0); MEAN CELL VOLUME 91.6 fL (80.0-94.0); MEAN CORPUSCULAR HEMOGLOBIN 29.8 pg (27.0-31.0); MEAN CORPUSCULAR HGB CONC 32.5 g/dL (33.0-37.0); MEAN PLATELET VOLUME 7.6 fL (7.2-11.7); MONO # 0.8 K/uL (0.0-0.8); MONO % 9.7 % (0.0-10.0); NEUT # 5.5 K/uL (1.8-7.0); NEUT % 70.7 % (50.0-75.0); RBC 3.48 Mil/uL (4.40-5.90); RED CELL DISTRIBUTION WIDTH 15.4 % (11.5-14.5); WHITE BLOOD COUNT 7.8 K/uL (4.8-10.8)
[2018-09-03] MEDS ORDERED: Albuterol-Ipratrop 3 mg / 0.5 (3 ml) UD INH PRN (11:36)
[2018-09-03] MEDS ORDERED: Magnesium Hydroxide Susp 30 ml UD PO PRN (11:36)
--- NOTE | 2018-09-03 12:38 | CP.PCM.HP ---
Past Patient History - Infectious Disease Hx of Infectious Diseases: None - Past Medical History & Family History Past Medical History?: Yes - Past Social History Smoking Status: Former Smoker - CARDIAC Hx Atrial Fibrillation: Yes Hx Congestive Heart Failure: Yes Hx Hypertension: Yes - PULMONARY Hx Chronic Obstructive Pulmonary Disease (COPD): Yes (emphysema (per CT/chest)) Hx Pulmonary Embolism: Yes - NEUROLOGICAL Hx Neurological Disorder: No - HEENT Hx HEENT Problems: No - RENAL Hx Chronic Kidney Disease: No - ENDOCRINE/METABOLIC Hx Hypothyroidism: Yes - HEMATOLOGICAL/ONCOLOGICAL Hx Blood Disorders: No - INTEGUMENTARY Hx Dermatological Problems: No - MUSCULOSKELETAL/RHEUMATOLOGICAL Hx Arthritis: Yes (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; BACK NECK) Hx Falls: No - GASTROINTESTINAL Hx Gastrointestinal Disorders: No - GENITOURINARY/GYNECOLOGICAL Hx Genitourinary Disorders: No - PSYCHIATRIC Hx Substance Use: No - SURGICAL HISTORY Hx Tonsillectomy: Yes - ANESTHESIA Hx Anesthesia: No Meds Allergies/Adverse Reactions: Allergies Allergy/AdvReac Type Severity Reaction Status Date / Time No Known Allergies Allergy Verified 09/03/18 06:04 Physical Exam - Constitutional Appears: Well - Head Exam Head Exam: ATRAUMATIC, NORMAL INSPECTION, NORMOCEPHALIC - Eye Exam Eye Exam: EOMI, Normal appearance, PERRL Pupil Exam: NORMAL ACCOMODATION, PERRL - ENT Exam ENT Exam: Mucous Membranes Moist, Normal Exam - Neck Exam Neck exam: Positive for: Normal Inspection - Respiratory Exam Respiratory Exam: Decreased Breath Sounds - Cardiovascular Exam Cardiovascular Exam: REGULAR RHYTHM, +S1, +S2 - GI/Abdominal Exam GI & Abdominal Exam: Diminished Bowel Sounds, Soft - Rectal Exam Rectal Exam: Deferred Results - Vital Signs Recent Vital Signs: Last Vital Signs Temp 98.4 F 09/03/18 09:08 Pulse 76 09/03/18 11:24 Resp 16 09/03/18 09:08 BP 113/66 09/03/18 09:08 Pulse Ox 99 09/03/18 09:08 - Labs Result Diagrams: 09/03/18 06:50 09/03/18 06:50 Labs: Laboratory Results - last 24 hr 09/03/18 09/03/18 09/03/18 06:07 06:50 06:50 WBC 7.8 RBC 3.48 L Hgb 10.4 L Hct 31.9 L MCV 91.6 MCH 29.8 MCHC 32.5 L RDW 15.4 H Plt Count 389 MPV 7.6 Neut % (Auto) 70.7 Lymph % (Auto) 17.9 L Barton % (Auto) 9.7 Eos % (Auto) 0.7 Baso % (Auto) 1.0 Neut # (Auto) 5.5 Lymph # (Auto) 1.4 Barton # (Auto) 0.8 Eos # (Auto) 0.1 Baso # (Auto) 0.1 PT INR APTT pO2 21 L VBG pH 7.35 VBG pCO2 46 VBG HCO3 22.7 VBG Total CO2 26.8 VBG O2 Sat (Calc) 38.5 L VBG Base Excess -0.6 L VBG Potassium 4.9 Sodium 135.0 Chloride 100.0 Glucose 83 Lactate 1.5 Potassium Carbon Dioxide Anion Gap BUN Creatinine Est GFR ( Amer) Est GFR (Non-Af Amer) POC Glucose (mg/dL) 92 Random Glucose Calcium Phosphorus Magnesium Total Bilirubin AST ALT Alkaline Phosphatase Total Protein Albumin Globulin Albumin/Globulin Ratio Venous Blood Potassium 4.9 09/03/18 09/03/18 06:50 06:50 WBC RBC Hgb Hct MCV MCH MCHC RDW Plt Count MPV Neut % (Auto) Lymph % (Auto) Barton % (Auto) Eos % (Auto) Baso % (Auto) Neut # (Auto) Lymph # (Auto) Barton # (Auto) Eos # (Auto) Baso # (Auto) PT 23.1 H INR 2.1 APTT 44 H pO2 VBG pH VBG pCO2 VBG HCO3 VBG Total CO2 VBG O2 Sat (Calc) VBG Base Excess VBG Potassium Sodium 136 Chloride 99 Glucose Lactate Potassium 5.1 Carbon Dioxide 26 Anion Gap 16 BUN 28 H Creatinine 1.6 H Est GFR ( Amer) 51 Est GFR (Non-Af Amer) 42 POC Glucose (mg/dL) Random Glucose 92 Calcium 10.0 Phosphorus 4.1 Magnesium 1.5 L Total Bilirubin 0.5 AST 21 ALT 11 L D Alkaline Phosphatase 116 Total Protein 7.7 Albumin 3.9 Globulin 3.8 Albumin/Globulin Ratio 1.0 Venous Blood Potassium
--- NOTE | 2018-09-03 12:43 | CP.PCM.PN ---
Subjective - Date & Time of Evaluation Date of Evaluation: 09/03/18 Time of Evaluation: 12:42 - Subjective Subjective: pvd previously evaluated Rx declined by patient also spoke to family re options Objective - Vital Signs/Intake and Output Vital Signs (last 24 hours): Temp Pulse Resp BP Pulse Ox 98.4 F 76 16 113/66 99 09/03/18 09:08 09/03/18 11:24 09/03/18 09:08 09/03/18 09:08 09/03/18 09:08 - Medications Medications: Current Medications Acetaminophen (Tylenol 325mg Tab) 650 mg PO Q4 PRN PRN Reason: Temp >100 Albuterol/Ipratropium (Duoneb 3 Mg/0.5 Mg (3 Ml) Ud) 3 ml INH Q6 PRN PRN Reason: Shortness of Breath Famotidine (Pepcid) 20 mg PO DAILY [facility] Gabapentin (Neurontin) 100 mg PO BID [facility] Piperacillin Sod/Tazobactam (Sod 3.375 gm/ Sodium Chloride) 100 mls @ 200 mls/hr IVPB Q8H [facility]; Protocol Vancomycin HCl 750 mg/ Sodium (Chloride) 250 mls @ 250 mls/hr IVPB Q24H [facility]; Protocol Levothyroxine Sodium (Synthroid) 75 mcg PO DAILY@0630 [facility] Magnesium Hydroxide (Milk Of Magnesia) 30 ml PO HS PRN PRN Reason: No bowel movement after 3 days Oxycodone HCl (Oxycodone Immediate Release Tab) 10 mg PO Q4H PRN PRN Reason: Pain, moderate (4-7) Spironolactone (Aldactone) 50 mg PO DAILY [facility] - Labs Labs: 09/03/18 06:50 09/03/18 06:50 PT 23.1 SECONDS (9.7-12.2) H 09/03/18 06:50 INR 2.1 09/03/18 06:50 APTT 44 SECONDS (21-34) H 09/03/18 06:50
--- NOTE | 2018-09-03 15:58 | RAD ---
Date of service: 09/03/2018 HISTORY: Necrotic foot COMPARISON: Comparison chest 08/09/2018 FINDINGS: LUNGS: Lungs appear hyperinflated seen consistent with chronic manifestations of COPD. Mild bibasilar atelectasis with chronic pleural thickening or small effusions. Mild biapical pleural thickening PLEURA: No significant pleural effusion identified, no pneumothorax apparent. CARDIOVASCULAR: Mild aortic atherosclerotic calcification present. Heart size upper limits of normal OSSEOUS STRUCTURES: No significant abnormalities. VISUALIZED UPPER ABDOMEN: Normal. OTHER FINDINGS: None. IMPRESSION: Chronic manifestations of COPD. Mild bibasilar atelectasis with chronic pleural thickening or small effusions. Mild biapical pleural thickening
[2018-09-03] MEDS: Piperacillin/Tazobact 3.375 GM in Sodium Chloride 100 ML IVPB SCH (16:51)
[2018-09-03] MEDS: oxyCODONE 10 mg Immediate Release Tab PO PRN (17:11)
[2018-09-03] MEDS ORDERED: Vancomycin 1 gm/NS 200 ml 1 GM/200 ML BAG IVPB SCH ×2 (18:00→22:00)
[2018-09-04] MEDS: Piperacillin/Tazobact 3.375 GM in Sodium Chloride 100 ML IVPB SCH ×3 (00:45→17:23)
[2018-09-04] MEDS: Levothyroxine 75 MCG TAB PO SCH (05:43)
--- NOTE | 2018-09-04 07:14 | CP.PCM.PN ---
Subjective - Date & Time of Evaluation Date of Evaluation: 09/04/18 Time of Evaluation: 06:55 - Subjective Subjective: Vascular Surgery Dr. Begum Pt S&E @bedside. No acute events overnight. Pt c/o pain in L foot. denies F/C, N/V. pt refusing intervention at this time. Objective - Vital Signs/Intake and Output Vital Signs (last 24 hours): Temp Pulse Resp BP Pulse Ox 98.1 F 103 H 20 101/56 L 97 09/04/18 00:30 09/04/18 00:30 09/04/18 00:30 09/04/18 00:30 09/04/18 00:30 - Medications Medications: Current Medications Acetaminophen (Tylenol 325mg Tab) 650 mg PO Q4 PRN PRN Reason: Temp >100 Albuterol/Ipratropium (Duoneb 3 Mg/0.5 Mg (3 Ml) Ud) 3 ml INH Q6 PRN PRN Reason: Shortness of Breath Docusate Sodium (Colace) 100 mg PO DAILY [facility] Famotidine (Pepcid) 20 mg PO DAILY [facility] Gabapentin (Neurontin) 100 mg PO BID [facility] Last Admin: 09/03/18 17:11 Dose: 100 mg Piperacillin Sod/Tazobactam (Sod 3.375 gm/ Sodium Chloride) 100 mls @ 200 mls/hr IVPB Q8H [facility]; Protocol Last Admin: 09/04/18 00:45 Dose: 200 mls/hr Vancomycin HCl 750 mg/ Sodium (Chloride) 250 mls @ 250 mls/hr IVPB Q24H [facility]; Protocol Levothyroxine Sodium (Synthroid) 75 mcg PO DAILY@0630 [facility] Last Admin: 09/04/18 05:43 Dose: 75 mcg Magnesium Hydroxide (Milk Of Magnesia) 30 ml PO HS PRN PRN Reason: No bowel movement after 3 days Oxycodone HCl (Oxycodone Immediate Release Tab) 10 mg PO Q4H PRN PRN Reason: Pain, moderate (4-7) Last Admin: 09/03/18 17:11 Dose: 10 mg Spironolactone (Aldactone) 50 mg PO DAILY [facility] - Labs Labs: 09/03/18 06:50 09/03/18 06:50 PT 23.1 SECONDS (9.7-12.2) H 09/03/18 06:50 INR 2.1 09/03/18 06:50 APTT 44 SECONDS (21-34) H 09/03/18 06:50 - Constitutional Appears: Non-toxic, No Acute Distress, Cachectic, Chronically Ill - Head Exam Head Exam: NORMAL INSPECTION - Eye Exam Eye Exam: Normal appearance - ENT Exam ENT Exam: Mucous Membranes Moist - Respiratory Exam Respiratory Exam: NORMAL BREATHING PATTERN. absent: Accessory Muscle Use, Respiratory Distress - Cardiovascular Exam Cardiovascular Exam: REGULAR RHYTHM. absent: Bradycardia, Tachycardia - Extremities Exam Additional comments: multiple toes, B/L feet gangrenous. L foot edematous, no erythema - Neurological Exam Neurological Exam: Alert, Awake - Psychiatric Exam Psychiatric exam: Normal Affect, Normal Mood - Skin Skin Exam: Dry, Warm Assessment and Plan - Assessment and Plan (Free Text) Assessment: 78 y/o M w/ PVD and dry gangrene of B/L toes Plan: - pt refusing intervention at this time. - cont medical management - please reconsult if needed Pt discussed w/ Dr. Kel Riggs DO PGY3
[2018-09-04 09:02] LABS: BLOOD UREA NITROGEN 23 mg/dL (9-20); CALCIUM 9.5 mg/dl (8.6-10.4); GFR NON-AFRICAN AMERICAN 54
--- NOTE | 2018-09-04 15:26 | CP.PCM.PN ---
Subjective - Date & Time of Evaluation Date of Evaluation: 09/04/18 Time of Evaluation: 11:45 - Subjective Subjective: clinically same Objective - Vital Signs/Intake and Output Vital Signs (last 24 hours): Temp Pulse Resp BP Pulse Ox 97.9 F 78 20 90/58 L 96 09/04/18 07:30 09/04/18 07:30 09/04/18 07:30 09/04/18 07:30 09/04/18 07:30 - Medications Medications: Current Medications Acetaminophen (Tylenol 325mg Tab) 650 mg PO Q4 PRN PRN Reason: Temp >100 Albuterol/Ipratropium (Duoneb 3 Mg/0.5 Mg (3 Ml) Ud) 3 ml INH Q6 PRN PRN Reason: Shortness of Breath Docusate Sodium (Colace) 100 mg PO DAILY [facility] Last Admin: 09/04/18 10:25 Dose: 100 mg Famotidine (Pepcid) 20 mg PO DAILY [facility] Last Admin: 09/04/18 10:25 Dose: 20 mg Gabapentin (Neurontin) 100 mg PO BID [facility] Last Admin: 09/04/18 10:25 Dose: 100 mg Piperacillin Sod/Tazobactam (Sod 3.375 gm/ Sodium Chloride) 100 mls @ 200 mls/hr IVPB Q8H [facility]; Protocol Last Admin: 09/04/18 08:16 Dose: 200 mls/hr Vancomycin HCl 750 mg/ Sodium (Chloride) 250 mls @ 250 mls/hr IVPB Q24H [facility]; Protocol Last Admin: 09/04/18 10:27 Dose: 250 mls/hr Levothyroxine Sodium (Synthroid) 75 mcg PO DAILY@0630 [facility] Last Admin: 09/04/18 05:43 Dose: 75 mcg Magnesium Hydroxide (Milk Of Magnesia) 30 ml PO HS PRN PRN Reason: No bowel movement after 3 days Oxycodone HCl (Oxycodone Immediate Release Tab) 10 mg PO Q4H PRN PRN Reason: Pain, moderate (4-7) Last Admin: 09/03/18 17:11 Dose: 10 mg Spironolactone (Aldactone) 50 mg PO DAILY [facility] Last Admin: 09/04/18 10:25 Dose: 50 mg Warfarin Sodium (Coumadin) 2 mg PO 1800 [facility] Stop: 09/04/18 18:01 - Labs Labs: 09/03/18 06:50 09/04/18 08:26 PT 23.1 SECONDS (9.7-12.2) H 09/03/18 06:50 INR 2.1 09/03/18 06:50 APTT 44 SECONDS (21-34) H 09/03/18 06:50 - Constitutional Appears: Well - Head Exam Head Exam: ATRAUMATIC, NORMAL INSPECTION, NORMOCEPHALIC - Eye Exam Eye Exam: EOMI, Normal appearance, PERRL Pupil Exam: NORMAL ACCOMODATION, PERRL - ENT Exam ENT Exam: Mucous Membranes Moist, Normal Exam - Neck Exam Neck Exam: Full ROM, Normal Inspection. absent: Lymphadenopathy - Respiratory Exam Respiratory Exam: Decreased Breath Sounds - Cardiovascular Exam Cardiovascular Exam: REGULAR RHYTHM, +S1, +S2 - GI/Abdominal Exam GI & Abdominal Exam: Soft, Diminished Bowel Sounds - Rectal Exam Rectal Exam: Deferred
--- NOTE | 2018-09-04 15:29 | CP.PCM.CON ---
History of Present Illness - History of Present Illness History of Present Illness: 78 year old male is sent to the ED from snf with complaints of pain to the left foot. Patient has a history of PVD, States was injured [place] has gangrenous digits left foot both lower limbs weak and contracted no pulses palpable vascular work up planned may need BKA - Medical History PMH: Arthritis (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; BACK NECK), Atrial Fibrillation, CHF, COPD (emphysema (per CT/chest)), HTN, Hypothyroidism, Pulmonary Embolism Denies: Chronic Kidney Disease Other PMH: Peripheral Vascular Disease Surgical History: Back Surgery, Tonsillectomy - [facility] Procedures ASSISTANCE WITH RESPIRATORY VENTILATION, 24-96 HRS, CPAP (10/10/15) DRAINAGE OF LEFT PLEURAL CAVITY, PERCUTANEOUS APPROACH (03/17/16) DRAINAGE OF RIGHT PLEURAL CAVITY, PERCUTANEOUS APPROACH (03/17/16) INSERTION OF ENDOTRACHEAL AIRWAY INTO TRACHEA, VIA OPENING (03/17/16) INTRODUCTION OF SERUM/TOX/VACCINE INTO MUSCLE, PERC APPROACH (03/17/16) PERFORMANCE OF CARDIAC OUTPUT, SINGLE, MANUAL (03/17/16) RESPIRATORY VENTILATION, 24-96 CONSECUTIVE HOURS (03/17/16) Review of Systems - Review of Systems All systems: reviewed and no additional remarkable complaints except - Constitutional Constitutional: As Per HPI, Anorexia, Fever, Malaise - EENT Eyes: absent: As Per HPI, Blind Spots, Blurred Vision, Change in Vision, Decreased Night Vision, Diplopia, Discharge, Dry Eye, Exophthalmos, Floaters, Irritation, Itchy Eyes, Loss of Peripheral Vision, Pain, Photophobia, Requires Corrective Lenses, Sees Flashes, Spots in Vision, Tunnel Vision, Other Visual D isturbances, Loss of Vision, Other Ears: absent: As Per HPI, Decreased Hearing, Ear Discharge, Ear Pain, Tinnitus, Abnormal Hearing, Disequilibrium, Dizziness, Other Nose/Mouth/Throat: absent: As Per HPI, Epistaxis, Nasal Congestion, Nasal Discharge, Nasal Obstruction, Nasal Trauma, Nose Pain, Post Nasal Drip, Sinus Pain, Sinus Pressure, Bleeding Gums, Change in Voice, Dental Pain, Dry Mouth, Dysphagia, Halitosis, Hoarsness, Lip Swelling, Mouth Lesions, Mouth Pain, Odynophagia, Sore Throat, Throat Swelling, Tongue Swelling, Facial Pain, Neck Pa in, Neck Mass, Other - Cardiovascular Cardiovascular: As Per HPI - Respiratory Respiratory: absent: As Per HPI, Cough, Dyspnea, Hemoptysis, Dyspnea on Exertion, Wheezing, Snoring, Stridor, Pain on Inspiration, Chest Congestion, Excessive Mucous Production, Change in Mucous Color, Pain with Coughing, Other - Gastrointestinal Gastrointestinal: absent: As Per HPI, Abdominal Pain, Belching, Bloating, Change in Bowel Habits, Change in Stool Character, Coffee Ground Emesis, Constipation, Cramping, Diarrhea, Dyspepsia, Dysphagia, Early Satiety, Excessive Flatus, Fecal Incontinence, Heartburn, Hematemesis, Hematochezia, Loose Stools, Melena, Nausea, Odynophagia, Temesmus, Vomiting, Other - Genitourinary Genitourinary: absent: As Per HPI, Change in Urinary Stream, Difficulty Urinating, Dysuria, Flank Pain, Hematuria, Pyuria, Nocturia, Urinary Incontinence, Urinary Frequency, Urinary Hesitance, Urinary Urgency, Voiding Freq/Small Amts, Freq UTI, Hx Renal/Bladder Calculi, Hx /Renal Surgery, Bladder Distension, Other - Musculoskeletal Musculoskeletal: As Per HPI - Integumentary Integumentary: As Per HPI, Skin Pain, Wounds - Neurological Neurological: absent: As Per HPI, Abnormal Gait, Abnormal Hearing, Abnormal Movements, Abnormal Speech, Behavioral Changes, Burning Sensations, Confusion, Convulsions, Disequilibrium, Dizziness, Numbness, Focal Weakness, Frequent Falls, Headaches, Lack of Coordination, Loss of Vision, Memory Loss, Paresthesias, Radicular Pain, Restless Legs, Sensory Deficit, Syncope, Tingling, Tremor, Vertigo, Weakness, Other Visual Disturbances, Other - Psychiatric Psychiatric: absent: As Per HPI, Abnormal Sleep Pattern, Anhedonia, Anxiety, Auditory Hallucinations, Behavioral Changes, Change in Appetite, Change in Libido, Confusion, Depression, Difficulty Concentrating, Hallucinations, Homicidal Ideation, Hopelessness, Irritability, Memory Loss, Mood Swings, Panic Attacks, Paranoia, Suicidal Ideation, Visual Hallucinations, Tactile Hallucinations, Other - Endocrine Endocrine: absent: As Per HPI, Change in Body Appearance, Change in Libido, Cold Intolorance, Deepening of Voice, Excessive Sweating, Fatigue, Flushing, Heat Intolorance, Increase in Ring/Shoe/Hat Size, Palpitations, Polydipsia, Polyphagia, Polyuria, Other - Hematologic/Lymphatic Hematologic: absent: As Per HPI, Easy Bleeding, Easy Bruising, Lymphadenopathy, Other Past Patient History - Infectious Disease Hx of Infectious Diseases: None - Past Medical History & Family History Past Medical History?: Yes - Past Social History Smoking Status: Former Smoker - CARDIAC Hx Atrial Fibrillation: Yes Hx Congestive Heart Failure: Yes Hx Hypertension: Yes - PULMONARY Hx Chronic Obstructive Pulmonary Disease (COPD): Yes (emphysema (per CT/chest)) Hx Pulmonary Embolism: Yes - NEUROLOGICAL Hx Neurological Disorder: No - HEENT Hx HEENT Problems: No - RENAL Hx Chronic Kidney Disease: No - ENDOCRINE/METABOLIC Hx Hypothyroidism: Yes - HEMATOLOGICAL/ONCOLOGICAL Hx Blood Disorders: No - INTEGUMENTARY Hx Dermatological Problems: No - MUSCULOSKELETAL/RHEUMATOLOGICAL Hx Arthritis: Yes (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; BACK NECK) Hx Falls: No - GASTROINTESTINAL Hx Gastrointestinal Disorders: No - GENITOURINARY/GYNECOLOGICAL Hx Genitourinary Disorders: No - PSYCHIATRIC Hx Substance Use: No - SURGICAL HISTORY Hx Tonsillectomy: Yes - ANESTHESIA Hx Anesthesia: No Meds Allergies/Adverse Reactions: Allergies Allergy/AdvReac Type Severity Reaction Status Date / Time No Known Allergies Allergy Verified 09/03/18 06:04 - Medications Medications: Current Medications Acetaminophen (Tylenol 325mg Tab) 650 mg PO Q4 PRN PRN Reason: Temp >100 Albuterol/Ipratropium (Duoneb 3 Mg/0.5 Mg (3 Ml) Ud) 3 ml INH Q6 PRN PRN Reason: Shortness of Breath Docusate Sodium (Colace) 100 mg PO DAILY [facility] Last Admin: 09/04/18 10:25 Dose: 100 mg Famotidine (Pepcid) 20 mg PO DAILY [facility] Last Admin: 09/04/18 10:25 Dose: 20 mg Gabapentin (Neurontin) 100 mg PO BID [facility] Last Admin: 09/04/18 10:25 Dose: 100 mg Piperacillin Sod/Tazobactam (Sod 3.375 gm/ Sodium Chloride) 100 mls @ 200 mls/hr IVPB Q8H [facility]; Protocol Last Admin: 09/04/18 08:16 Dose: 200 mls/hr Vancomycin HCl 750 mg/ Sodium (Chloride) 250 mls @ 250 mls/hr IVPB Q24H [facility]; Protocol Last Admin: 09/04/18 10:27 Dose: 250 mls/hr Levothyroxine Sodium (Synthroid) 75 mcg PO DAILY@0630 [facility] Last Admin: 09/04/18 05:43 Dose: 75 mcg Magnesium Hydroxide (Milk Of Magnesia) 30 ml PO HS PRN PRN Reason: No bowel movement after 3 days Oxycodone HCl (Oxycodone Immediate Release Tab) 10 mg PO Q4H PRN PRN Reason: Pain, moderate (4-7) Last Admin: 09/03/18 17:11 Dose: 10 mg Spironolactone (Aldactone) 50 mg PO DAILY [facility] Last Admin: 09/04/18 10:25 Dose: 50 mg Warfarin Sodium (Coumadin) 2 mg PO 1800 [facility] Stop: 09/04/18 18:01 Physical Exam - Constitutional Appears: Non-toxic, Cachectic, Chronically Ill - Head Exam Head Exam: ATRAUMATIC, NORMAL INSPECTION, NORMOCEPHALIC - Eye Exam Eye Exam: PERRL. absent: Scleral icterus Pupil Exam: NORMAL ACCOMODATION - ENT Exam ENT Exam: Mucous Membranes Dry, Normal External Ear Exam, Normal Oropharynx - Neck Exam Neck exam: Negative for: Lymphadenopathy, Thyromegaly - Respiratory Exam Respiratory Exam: Decreased Breath Sounds, Prolonged Expiratory Phase, Rhonchi - Cardiovascular Exam Cardiovascular Exam: REGULAR RHYTHM, +S1. absent: +S2 - GI/Abdominal Exam GI & Abdominal Exam: Diminished Bowel Sounds, Soft. absent: Guarding, Rebound - Rectal Exam Rectal Exam: Deferred - Exam Exam: NORMAL INSPECTION External exam: absent: Ecchymosis - Extremities Exam Extremities exam: Positive for: joint swelling, pedal edema, tenderness. Negative for: full ROM, normal capillary refill, pedal pulses present Additional comments: contracted right leg - Back Exam Back exam: absent: CVA tenderness (L), CVA tenderness (R), paraspinal tenderness - Neurological Exam Neurological exam: Alert, CN II-XII Intact, Oriented x3, Reflexes Normal - Psychiatric Exam Psychiatric exam: Depressed - Skin Skin Exam: Dry Additional comments: dry gangrene left foot - toes 1-5 left foot also cool to touch with decrease pulses Results - Vital Signs Recent Vital Signs: Last Vital Signs Temp 97.9 F 09/04/18 07:30 Pulse 78 09/04/18 07:30 Resp 20 09/04/18 07:30 BP 90/58 L 09/04/18 07:30 Pulse Ox 96 09/04/18 07:30 - Labs Result Diagrams: 09/03/18 06:50 09/04/18 08:26 Labs: Laboratory Results - last 24 hr 09/04/18 08:26 Sodium 136 Potassium 5.2 Chloride 102 Carbon Dioxide 23 Anion Gap 15 BUN 23 H Creatinine 1.3 Est GFR ( Amer) > 60 Est GFR (Non-Af Amer) 54 Random Glucose 82 Calcium 9.5 Assessment & Plan (1) Atrial fibrillation Status: Acute (2) Gangrene of toe of left foot Status: Acute (3) Skin ulcer of toe of left foot with necrosis of muscle Status: Acute (4) Vascular occlusion Status: Acute - Assessment and Plan (Free Text) Assessment: ischemic changes to feet left > right my need fempop bypass conmt empiric IV antibioitics
[2018-09-04 17:33] LABS: INR 2.6; PROTHROMBIN TIME 28.5 SECONDS (9.7-12.2)
[2018-09-05] MEDS: Piperacillin/Tazobact 3.375 GM in Sodium Chloride 100 ML IVPB SCH ×3 (00:30→17:00)
[2018-09-05] MEDS: Levothyroxine 75 MCG TAB PO SCH (06:23)
[2018-09-05 07:06] LABS: INR 2.7; PROTHROMBIN TIME 29.1 SECONDS (9.7-12.2)
--- NOTE | 2018-09-05 11:20 | CP.PCM.CON ---
History of Present Illness - History of Present Illness History of Present Illness: Podiatry Progress Note for Dr. Mcpherson 78M with PMH Arthritis (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; BACK NECK), Atrial Fibrillation, CHF, COPD (emphysema (per CT/chest)), HTN, Hypothyroidism, Pulmonary Embolism seen at bedside for ischemic changes to left foot digits 1, 2, 3, 5. Patient does not recall when changes originally began and states that he wants to leave the hospital because he does not feel that he is getting enough exercise. He is AAO x 3 and NAD, resting comfortably in bed. Denies any acute overnight events or new pedal complaints. Denies any recent N/V/F/C/CP/SOB/D/. States that he has no pain in his digits Review of Systems - Review of Systems All systems: reviewed and no additional remarkable complaints except Review of Systems: as per HPI Past Patient History - Infectious Disease Hx of Infectious Diseases: None - Past Medical History & Family History Past Medical History?: Yes - Past Social History Smoking Status: Former Smoker - CARDIAC Hx Atrial Fibrillation: Yes Hx Congestive Heart Failure: Yes Hx Hypertension: Yes - PULMONARY Hx Chronic Obstructive Pulmonary Disease (COPD): Yes (emphysema (per CT/chest)) Hx Pulmonary Embolism: Yes - NEUROLOGICAL Hx Neurological Disorder: No - HEENT Hx HEENT Problems: No - RENAL Hx Chronic Kidney Disease: No - ENDOCRINE/METABOLIC Hx Hypothyroidism: Yes - HEMATOLOGICAL/ONCOLOGICAL Hx Blood Disorders: No - INTEGUMENTARY Hx Dermatological Problems: No - MUSCULOSKELETAL/RHEUMATOLOGICAL Hx Arthritis: Yes (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; BACK NECK) Hx Falls: No - GASTROINTESTINAL Hx Gastrointestinal Disorders: No - GENITOURINARY/GYNECOLOGICAL Hx Genitourinary Disorders: No - PSYCHIATRIC Hx Substance Use: No - SURGICAL HISTORY Hx Tonsillectomy: Yes - ANESTHESIA Hx Anesthesia: No Meds Allergies/Adverse Reactions: Allergies Allergy/AdvReac Type Severity Reaction Status Date / Time No Known Allergies Allergy Verified 09/03/18 06:04 - Medications Medications: Current Medications Acetaminophen (Tylenol 325mg Tab) 650 mg PO Q4 PRN PRN Reason: Temp >100 Albuterol/Ipratropium (Duoneb 3 Mg/0.5 Mg (3 Ml) Ud) 3 ml INH Q6 PRN PRN Reason: Shortness of Breath Docusate Sodium (Colace) 100 mg PO DAILY [facility] Last Admin: 09/05/18 09:34 Dose: 100 mg Famotidine (Pepcid) 20 mg PO DAILY [facility] Last Admin: 09/05/18 09:34 Dose: 20 mg Gabapentin (Neurontin) 100 mg PO BID [facility] Last Admin: 09/05/18 09:34 Dose: 100 mg Piperacillin Sod/Tazobactam (Sod 3.375 gm/ Sodium Chloride) 100 mls @ 200 mls/hr IVPB Q8H [facility]; Protocol Last Admin: 09/05/18 09:33 Dose: 200 mls/hr Vancomycin HCl 750 mg/ Sodium (Chloride) 250 mls @ 250 mls/hr IVPB Q24H [facility]; Protocol Last Admin: 09/04/18 10:27 Dose: 250 mls/hr Levothyroxine Sodium (Synthroid) 75 mcg PO DAILY@0630 [facility] Last Admin: 09/05/18 06:23 Dose: 75 mcg Magnesium Hydroxide (Milk Of Magnesia) 30 ml PO HS PRN PRN Reason: No bowel movement after 3 days Oxycodone HCl (Oxycodone Immediate Release Tab) 10 mg PO Q4H PRN PRN Reason: Pain, moderate (4-7) Last Admin: 09/03/18 17:11 Dose: 10 mg Spironolactone (Aldactone) 50 mg PO DAILY [facility] Last Admin: 09/05/18 09:34 Dose: 50 mg Physical Exam - Constitutional Appears: Well, Non-toxic, No Acute Distress - Extremities Exam Additional comments: Left lower extremity focused exam: Vasc: DP/PT pulses non-palpable. Skin temperature warm to cool from proximal to distal. CFT > 3 seconds in 4th digit and non-existent in gangrenous digits. No edema noted Neuro: Epicritic and protective sensation grossly diminished Derm: Dry gangrenous changes noted to dorsal aspect of hallux, entirety of se cond and fifth digits. Purple/dusky appearance noted to third digit. No open lesions, wounds, maceration, xerosis, abnormal pigmentation or abnormal growths noted. No signs of infection appreciated MSK: No pain with palpation of digits. No ROM at any digit. MMT 4/5 in all muscle groups - Neurological Exam Neurological exam: Alert, Oriented x3 - Psychiatric Exam Psychiatric exam: Normal Affect, Normal Mood Results - Vital Signs Recent Vital Signs: Last Vital Signs Temp 97.4 F L 09/05/18 09:09 Pulse 96 H 09/05/18 09:09 Resp 18 09/05/18 09:09 BP 100/60 09/05/18 09:09 Pulse Ox 99 09/05/18 09:09 - Labs Result Diagrams: 09/03/18 06:50 09/04/18 08:26 Labs: Laboratory Results - last 24 hr 09/04/18 09/05/18 09/05/18 17:20 06:47 06:47 PT 28.5 H D 29.1 H INR 2.6 D 2.7 Vancomycin Trough 11.6 H Assessment & Plan - Assessment and Plan (Free Text) Assessment: 78M seen for dry gangrene/ischemic changes of left foot digits 1, 2, 3, 5 Plan: Patient seen and evaluated Plan discussed with Dr. Mcpherson Afebrile, absent leukocytosis Foot xrays reviewed: Final read pending Patient refusing vascular intervention at this time No plan for surgical intervention at this time Digits dressed with betadine, DSD Podiatry will continue to follow while patient in house - Date & Time Date: 09/05/18 Time: 11:25
--- NOTE | 2018-09-05 14:20 | RAD ---
Date of service: 09/03/2018 PROCEDURE: Bilateral Feet Radiographs. HISTORY: necrotic foot COMPARISON: Left foot radiographs performed 08/09/18 FINDINGS: BONES: Osseous demineralization. Moderate degenerative changes. No acute displaced fracture identified. JOINTS: Joint space narrowing. No dislocation. SOFT TISSUES: No evidence of radiopaque foreign body. No subcutaneous emphysema evident. Mild soft tissue swelling bilaterally. Vascular calcifications on the right. OTHER FINDINGS: None. IMPRESSION: Osseous demineralization. Degenerative changes. No subcutaneous emphysema evident. Mild soft tissue swelling. Right-sided vascular calcifications.
--- NOTE | 2018-09-05 14:23 | CARD ---
APPROVED REPORT Date of service: 09/03/2018 EKG Measurement Heart [id number] <Conclusion> Atrial fibrillation Abnormal ECG
--- NOTE | 2018-09-05 18:31 | CP.PCM.PN ---
Subjective - Date & Time of Evaluation Date of Evaluation: 09/05/18 Time of Evaluation: 08:00 - Subjective Subjective: events noted iv rx in progress Objective - Vital Signs/Intake and Output Vital Signs (last 24 hours): Temp Pulse Resp BP Pulse Ox 97.9 F 99 H 18 102/60 96 09/05/18 15:00 09/05/18 15:00 09/05/18 15:00 09/05/18 15:00 09/05/18 15:00 Intake and Output: 09/05/18 09/05/18 06:59 18:59 Intake Total 30 Output Total 700 Balance -670 - Medications Medications: Current Medications Acetaminophen (Tylenol 325mg Tab) 650 mg PO Q4 PRN PRN Reason: Temp >100 Albuterol/Ipratropium (Duoneb 3 Mg/0.5 Mg (3 Ml) Ud) 3 ml INH Q6 PRN PRN Reason: Shortness of Breath Docusate Sodium (Colace) 100 mg PO DAILY [facility] Last Admin: 09/05/18 09:34 Dose: 100 mg Famotidine (Pepcid) 20 mg PO DAILY [facility] Last Admin: 09/05/18 09:34 Dose: 20 mg Gabapentin (Neurontin) 100 mg PO BID [facility] Last Admin: 09/05/18 18:04 Dose: 100 mg Piperacillin Sod/Tazobactam (Sod 3.375 gm/ Sodium Chloride) 100 mls @ 200 mls/hr IVPB Q8H [facility]; Protocol Last Admin: 09/05/18 17:00 Dose: 200 mls/hr Vancomycin HCl 750 mg/ Sodium (Chloride) 250 mls @ 250 mls/hr IVPB Q24H [facility]; Protocol Last Admin: 09/05/18 11:40 Dose: 250 mls/hr Levothyroxine Sodium (Synthroid) 75 mcg PO DAILY@0630 [facility] Last Admin: 09/05/18 06:23 Dose: 75 mcg Magnesium Hydroxide (Milk Of Magnesia) 30 ml PO HS PRN PRN Reason: No bowel movement after 3 days Oxycodone HCl (Oxycodone Immediate Release Tab) 10 mg PO Q4H PRN PRN Reason: Pain, moderate (4-7) Last Admin: 09/03/18 17:11 Dose: 10 mg Spironolactone (Aldactone) 50 mg PO DAILY [facility] Last Admin: 09/05/18 09:34 Dose: 50 mg - Labs Labs: 09/03/18 06:50 09/04/18 08:26 PT 29.1 SECONDS (9.7-12.2) H 09/05/18 06:47 INR 2.7 09/05/18 06:47 APTT 44 SECONDS (21-34) H 09/03/18 06:50 - Constitutional Appears: Non-toxic, Chronically Ill - Head Exam Head Exam: NORMOCEPHALIC - Eye Exam Eye Exam: absent: Scleral icterus Pupil Exam: NORMAL ACCOMODATION - ENT Exam ENT Exam: Mucous Membranes Dry - Neck Exam Neck Exam: absent: Lymphadenopathy - Respiratory Exam Respiratory Exam: Decreased Breath Sounds - Cardiovascular Exam Cardiovascular Exam: REGULAR RHYTHM - GI/Abdominal Exam GI & Abdominal Exam: Distended, Soft - Rectal Exam Rectal Exam: Deferred - Exam Exam: NORMAL INSPECTION - Back Exam Back Exam: absent: CVA tenderness (L), CVA tenderness (R) - Neurological Exam Neurological Exam: Alert, Awake - Psychiatric Exam Psychiatric exam: Depressed - Skin Skin Exam: Dry Additional comments: DRY GANGRENE LEFT TOES CONTRACTED LOWER EXTREMITIES Assessment and Plan (1) Atrial fibrillation Status: Acute (2) Gangrene of toe of left foot Status: Acute (3) Skin ulcer of toe of left foot with necrosis of muscle Status: Acute (4) Vascular occlusion Status: Acute
--- NOTE | 2018-09-05 21:32 | CP.PCM.PN ---
Subjective - Date & Time of Evaluation Date of Evaluation: 09/05/18 Time of Evaluation: 12:00 - Subjective Subjective: clinically same Objective - Vital Signs/Intake and Output Vital Signs (last 24 hours): Temp Pulse Resp BP Pulse Ox 97.9 F 99 H 18 102/60 96 09/05/18 15:00 09/05/18 15:00 09/05/18 15:00 09/05/18 15:00 09/05/18 15:00 - Medications Medications: Current Medications Acetaminophen (Tylenol 325mg Tab) 650 mg PO Q4 PRN PRN Reason: Temp >100 Albuterol/Ipratropium (Duoneb 3 Mg/0.5 Mg (3 Ml) Ud) 3 ml INH Q6 PRN PRN Reason: Shortness of Breath Docusate Sodium (Colace) 100 mg PO DAILY [facility] Last Admin: 09/05/18 09:34 Dose: 100 mg Famotidine (Pepcid) 20 mg PO DAILY [facility] Last Admin: 09/05/18 09:34 Dose: 20 mg Gabapentin (Neurontin) 100 mg PO BID [facility] Last Admin: 09/05/18 18:04 Dose: 100 mg Piperacillin Sod/Tazobactam (Sod 3.375 gm/ Sodium Chloride) 100 mls @ 200 mls/hr IVPB Q8H [facility]; Protocol Last Admin: 09/05/18 17:00 Dose: 200 mls/hr Vancomycin HCl 750 mg/ Sodium (Chloride) 250 mls @ 250 mls/hr IVPB Q24H [facility]; Protocol Last Admin: 09/05/18 11:40 Dose: 250 mls/hr Levothyroxine Sodium (Synthroid) 75 mcg PO DAILY@0630 [facility] Last Admin: 09/05/18 06:23 Dose: 75 mcg Magnesium Hydroxide (Milk Of Magnesia) 30 ml PO HS PRN PRN Reason: No bowel movement after 3 days Oxycodone HCl (Oxycodone Immediate Release Tab) 10 mg PO Q4H PRN PRN Reason: Pain, moderate (4-7) Last Admin: 09/03/18 17:11 Dose: 10 mg Spironolactone (Aldactone) 50 mg PO DAILY [facility] Last Admin: 09/05/18 09:34 Dose: 50 mg - Labs Labs: 09/03/18 06:50 09/04/18 08:26 PT 29.1 SECONDS (9.7-12.2) H 09/05/18 06:47 INR 2.7 09/05/18 06:47 APTT 44 SECONDS (21-34) H 09/03/18 06:50 - Constitutional Appears: Well - Head Exam Head Exam: ATRAUMATIC, NORMAL INSPECTION, NORMOCEPHALIC - Eye Exam Eye Exam: EOMI, Normal appearance, PERRL Pupil Exam: NORMAL ACCOMODATION, PERRL - ENT Exam ENT Exam: Mucous Membranes Moist, Normal Exam - Neck Exam Neck Exam: Full ROM, Normal Inspection. absent: Lymphadenopathy - Respiratory Exam Respiratory Exam: Decreased Breath Sounds - Cardiovascular Exam Cardiovascular Exam: REGULAR RHYTHM, +S1, +S2 - GI/Abdominal Exam GI & Abdominal Exam: Soft, Diminished Bowel Sounds - Rectal Exam Rectal Exam: Deferred
[2018-09-06] MEDS: Piperacillin/Tazobact 3.375 GM in Sodium Chloride 100 ML IVPB SCH ×3 (00:38→16:30)
[2018-09-06] MEDS: Levothyroxine 75 MCG TAB PO SCH (07:09)
--- NOTE | 2018-09-06 08:23 | CP.PCM.PN ---
Subjective - Date & Time of Evaluation Date of Evaluation: 09/06/18 Time of Evaluation: 08:20 - Subjective Subjective: Podiatry Progress Note for Dr. Mcpherson 78M seen at bedside for ischemic changes to left foot digits 1, 2, 3, 5. He is AAO x 3 and NAD, resting comfortably in bed. Denies any acute overnight events or new pedal complaints. Denies any recent N/V/F/C/CP/SOB/D/. States that he has no pain in his digits. Discussed with patient the possibility of vascular studies/intervention but he does not want to have any vascular intervention done in the hospital at this time. Objective - Vital Signs/Intake and Output Vital Signs (last 24 hours): Temp Pulse Resp BP Pulse Ox 97.9 F 109 H 20 106/59 L 96 09/06/18 07:30 09/06/18 07:30 09/06/18 07:30 09/06/18 07:30 09/06/18 07:30 Intake and Output: 09/06/18 09/06/18 06:59 18:59 Intake Total 100 Balance 100 - Medications Medications: Current Medications Acetaminophen (Tylenol 325mg Tab) 650 mg PO Q4 PRN PRN Reason: Temp >100 Albuterol/Ipratropium (Duoneb 3 Mg/0.5 Mg (3 Ml) Ud) 3 ml INH Q6 PRN PRN Reason: Shortness of Breath Docusate Sodium (Colace) 100 mg PO DAILY [facility] Last Admin: 09/05/18 09:34 Dose: 100 mg Famotidine (Pepcid) 20 mg PO DAILY [facility] Last Admin: 09/05/18 09:34 Dose: 20 mg Gabapentin (Neurontin) 100 mg PO BID [facility] Last Admin: 09/05/18 18:04 Dose: 100 mg Piperacillin Sod/Tazobactam (Sod 3.375 gm/ Sodium Chloride) 100 mls @ 200 mls/hr IVPB Q8H [facility]; Protocol Last Admin: 09/06/18 00:38 Dose: 200 mls/hr Vancomycin HCl 750 mg/ Sodium (Chloride) 250 mls @ 250 mls/hr IVPB Q24H [facility]; Protocol Last Admin: 09/05/18 11:40 Dose: 250 mls/hr Levothyroxine Sodium (Synthroid) 75 mcg PO DAILY@0630 [facility] Last Admin: 09/06/18 07:09 Dose: 75 mcg Magnesium Hydroxide (Milk Of Magnesia) 30 ml PO HS PRN PRN Reason: No bowel movement after 3 days Oxycodone HCl (Oxycodone Immediate Release Tab) 10 mg PO Q4H PRN PRN Reason: Pain, moderate (4-7) Last Admin: 09/03/18 17:11 Dose: 10 mg Spironolactone (Aldactone) 50 mg PO DAILY [facility] Last Admin: 09/05/18 09:34 Dose: 50 mg - Labs Labs: 09/03/18 06:50 09/04/18 08:26 PT 29.1 SECONDS (9.7-12.2) H 09/05/18 06:47 INR 2.7 09/05/18 06:47 APTT 44 SECONDS (21-34) H 09/03/18 06:50 - Constitutional Appears: Well, Non-toxic, No Acute Distress - Extremities Exam Additional comments: Left lower extremity focused exam: Vasc: DP/PT pulses non-palpable. Skin temperature warm to cool from proximal to distal. CFT > 3 seconds in 4th digit and non-existent in gangrenous digits. No edema noted Neuro: Epicritic and protective sensation grossly diminished Derm: Dry gangrenous changes noted to dorsal aspect of hallux, entirety of second and fifth digits. All gangrenous changes appear to be stable at this time. Purple/dusky appearance noted to third digit, clinically same as yesterday. No open lesions, wounds, maceration, xerosis, abnormal pigmentation or abnormal growths noted. No signs of infection appreciated MSK: No pain with palpation of digits. No ROM at any digit. MMT 4/5 in all muscle groups - Neurological Exam Neurological Exam: Alert, Awake, Oriented x3 - Psychiatric Exam Psychiatric exam: Normal Affect, Normal Mood Assessment and Plan - Assessment and Plan (Free Text) Assessment: 78M seen at bedside for ischemic changes to left foot digits 1, 2, 3, 5. Plan: Patient seen and evaluated Plan discussed with Dr. Ky Medina, absent leukocytosis Foot xrays reviewed: No signs of OM. Degenerative osseous changes appreciated Patient refusing vascular intervention at this time No plan for surgical intervention at this time Digits dressed with betadine, DSD Podiatry will continue to follow while patient in house
--- NOTE | 2018-09-06 10:44 | CP.PCM.PN ---
Subjective - Date & Time of Evaluation Date of Evaluation: 09/06/18 Time of Evaluation: 08:00 - Subjective Subjective: refusing vascular intervention awake alert Objective - Vital Signs/Intake and Output Vital Signs (last 24 hours): Temp Pulse Resp BP Pulse Ox 97.9 F 109 H 20 106/59 L 96 09/06/18 07:30 09/06/18 07:30 09/06/18 07:30 09/06/18 07:30 09/06/18 07:30 Intake and Output: 09/06/18 09/06/18 06:59 18:59 Intake Total 100 Balance 100 - Medications Medications: Current Medications Acetaminophen (Tylenol 325mg Tab) 650 mg PO Q4 PRN PRN Reason: Temp >100 Albuterol/Ipratropium (Duoneb 3 Mg/0.5 Mg (3 Ml) Ud) 3 ml INH Q6 PRN PRN Reason: Shortness of Breath Docusate Sodium (Colace) 100 mg PO DAILY [facility] Last Admin: 09/06/18 09:35 Dose: 100 mg Famotidine (Pepcid) 20 mg PO DAILY [facility] Last Admin: 09/06/18 09:35 Dose: 20 mg Gabapentin (Neurontin) 100 mg PO BID [facility] Last Admin: 09/06/18 09:36 Dose: 100 mg Piperacillin Sod/Tazobactam (Sod 3.375 gm/ Sodium Chloride) 100 mls @ 200 mls/hr IVPB Q8H [facility]; Protocol Last Admin: 09/06/18 08:41 Dose: 200 mls/hr Vancomycin HCl 750 mg/ Sodium (Chloride) 250 mls @ 250 mls/hr IVPB Q24H [facility]; Protocol Last Admin: 09/06/18 09:34 Dose: 250 mls/hr Levothyroxine Sodium (Synthroid) 75 mcg PO DAILY@0630 [facility] Last Admin: 09/06/18 07:09 Dose: 75 mcg Magnesium Hydroxide (Milk Of Magnesia) 30 ml PO HS PRN PRN Reason: No bowel movement after 3 days Oxycodone HCl (Oxycodone Immediate Release Tab) 10 mg PO Q4H PRN PRN Reason: Pain, moderate (4-7) Last Admin: 09/03/18 17:11 Dose: 10 mg Spironolactone (Aldactone) 50 mg PO DAILY [facility] Last Admin: 09/06/18 09:35 Dose: 50 mg - Labs Labs: 09/03/18 06:50 09/04/18 08:26 PT 29.1 SECONDS (9.7-12.2) H 09/05/18 06:47 INR 2.7 09/05/18 06:47 APTT 44 SECONDS (21-34) H 09/03/18 06:50 - Constitutional Appears: Non-toxic, Cachectic, Chronically Ill - Head Exam Head Exam: NORMOCEPHALIC (x) - Eye Exam Eye Exam: absent: Scleral icterus - ENT Exam ENT Exam: Mucous Membranes Dry - Neck Exam Neck Exam: absent: Lymphadenopathy - Respiratory Exam Respiratory Exam: Decreased Breath Sounds - Cardiovascular Exam Cardiovascular Exam: REGULAR RHYTHM, +S1, +S2 - GI/Abdominal Exam GI & Abdominal Exam: Distended, Soft - Rectal Exam Rectal Exam: Deferred - Exam Exam: NORMAL INSPECTION - Extremities Exam Extremities Exam: absent: Pedal Edema - Back Exam Back Exam: absent: CVA tenderness (L), CVA tenderness (R) - Neurological Exam Neurological Exam: Alert, Awake, CN II-XII Intact Neuro motor strength exam: Left Upper Extremity: 4, Right Upper Extremity: 4, Left Lower Extremity: 4, Right Lower Extremity: 4 - Psychiatric Exam Psychiatric exam: Depressed - Skin Skin Exam: Dry (g) Additional comments: gangrenous digits left foot right foot redness/ edemano pulses bilateral lower extremities Assessment and Plan (1) Atrial fibrillation Status: Acute (2) Gangrene of toe of left foot Status: Acute (3) Skin ulcer of toe of left foot with necrosis of muscle Status: Acute (4) Vascular occlusion Status: Acute - Assessment and Plan (Free Text) Assessment: cont IV rx and wound care refusing vascular intervention
[2018-09-06 11:36] LABS: BASO # 0.1 K/uL (0.0-0.2); BASO % 0.6 % (0.0-2.0); EOS # 0.2 K/uL (0.0-0.7); HEMOGLOBIN 9.4 g/dL (12.0-18.0); LYMPH # 1.1 K/uL (1.0-4.3); LYMPH % 13.3 % (20.0-40.0); MEAN CELL VOLUME 91.8 fL (80.0-94.0); MEAN CORPUSCULAR HEMOGLOBIN 29.5 pg (27.0-31.0); MEAN CORPUSCULAR HGB CONC 32.1 g/dL (33.0-37.0); MEAN PLATELET VOLUME 7.7 fL (7.2-11.7); MONO # 0.8 K/uL (0.0-0.8); MONO % 9.8 % (0.0-10.0); NEUT # 6.1 K/uL (1.8-7.0); NEUT % 74.3 % (50.0-75.0); RBC 3.17 Mil/uL (4.40-5.90); RED CELL DISTRIBUTION WIDTH 15.5 % (11.5-14.5); WHITE BLOOD COUNT 8.3 K/uL (4.8-10.8)
[2018-09-06 11:50] LABS: BLOOD UREA NITROGEN 21 mg/dL (9-20); CALCIUM 9.5 mg/dl (8.6-10.4); GFR NON-AFRICAN AMERICAN > 60
[2018-09-06] MEDS: oxyCODONE 10 mg Immediate Release Tab PO PRN (17:36)
--- NOTE | 2018-09-06 19:00 | CP.PCM.PN ---
Subjective - Date & Time of Evaluation Date of Evaluation: 09/06/18 Time of Evaluation: 11:00 - Subjective Subjective: clinically same Objective - Vital Signs/Intake and Output Vital Signs (last 24 hours): Temp Pulse Resp BP Pulse Ox 97.8 F 87 20 100/50 L 98 09/06/18 15:53 09/06/18 15:53 09/06/18 15:53 09/06/18 15:53 09/06/18 15:53 Intake and Output: 09/06/18 09/06/18 06:59 18:59 Intake Total 100 Balance 100 - Medications Medications: Current Medications Acetaminophen (Tylenol 325mg Tab) 650 mg PO Q4 PRN PRN Reason: Temp >100 Albuterol/Ipratropium (Duoneb 3 Mg/0.5 Mg (3 Ml) Ud) 3 ml INH Q6 PRN PRN Reason: Shortness of Breath Docusate Sodium (Colace) 100 mg PO DAILY [facility] Last Admin: 09/06/18 09:35 Dose: 100 mg Famotidine (Pepcid) 20 mg PO DAILY [facility] Last Admin: 09/06/18 09:35 Dose: 20 mg Gabapentin (Neurontin) 100 mg PO BID [facility] Last Admin: 09/06/18 17:36 Dose: 100 mg Piperacillin Sod/Tazobactam (Sod 3.375 gm/ Sodium Chloride) 100 mls @ 200 mls/hr IVPB Q8H [facility]; Protocol Last Admin: 09/06/18 16:30 Dose: 200 mls/hr Vancomycin HCl 750 mg/ Sodium (Chloride) 250 mls @ 250 mls/hr IVPB Q24H [facility]; Protocol Last Admin: 09/06/18 09:34 Dose: 250 mls/hr Levothyroxine Sodium (Synthroid) 75 mcg PO DAILY@0630 [facility] Last Admin: 09/06/18 07:09 Dose: 75 mcg Magnesium Hydroxide (Milk Of Magnesia) 30 ml PO HS PRN PRN Reason: No bowel movement after 3 days Oxycodone HCl (Oxycodone Immediate Release Tab) 10 mg PO Q4H PRN PRN Reason: Pain, moderate (4-7) Last Admin: 09/06/18 17:36 Dose: 10 mg Spironolactone (Aldactone) 50 mg PO DAILY [facility] Last Admin: 09/06/18 09:35 Dose: 50 mg - Labs Labs: 09/06/18 11:21 09/06/18 11:21 PT 29.1 SECONDS (9.7-12.2) H 09/05/18 06:47 INR 2.7 09/05/18 06:47 APTT 44 SECONDS (21-34) H 09/03/18 06:50 - Constitutional Appears: Well - Head Exam Head Exam: ATRAUMATIC, NORMAL INSPECTION, NORMOCEPHALIC - Eye Exam Eye Exam: EOMI, Normal appearance, PERRL Pupil Exam: NORMAL ACCOMODATION, PERRL - ENT Exam ENT Exam: Mucous Membranes Moist, Normal Exam - Neck Exam Neck Exam: Full ROM, Normal Inspection. absent: Lymphadenopathy - Respiratory Exam Respiratory Exam: Decreased Breath Sounds - Cardiovascular Exam Cardiovascular Exam: REGULAR RHYTHM, +S1, +S2 - GI/Abdominal Exam GI & Abdominal Exam: Soft, Diminished Bowel Sounds - Rectal Exam Rectal Exam: Deferred
[2018-09-07] MEDS: Levothyroxine 75 MCG TAB PO SCH (06:34)
[2018-09-07] MEDS: Piperacillin/Tazobact 3.375 GM in Sodium Chloride 100 ML IVPB SCH ×4 (08:21→23:57)
--- NOTE | 2018-09-07 14:17 | CP.PCM.CON ---
History of Present Illness - History of Present Illness History of Present Illness: Palliative consult requested by Doctor Jaime Anderson for goals of care discussion Patient is a 78 yo admitted [place] with swelling and discoloration of LEs and pain of left foot. Patient had edema to LEs for while but pain got worse on the day of admission. per patient he was given Tylenol for pain at [place] but did not help him. Patient was transfered to hospital to be seen by the podyatrist and vascular surgeon. The left foot X ray on admission was negative for osteomyilitis, and showed some chronic demineralization of bones. Also the all 5 digits of left foot are discolored and cyanotic. Patient does not recall for how long the toes were blue. In ED he denied pain.ID consult called, Zosyn Iv and Vanco IB started for swelling and possible infection of LEs. There is a concern that patient may need amputation but he is not in agreement with the plan. patient is asking to return back to . patient is DNR/DNI, POLST on chart. PMH: PD, B/L knee contraction, uses WC to ambulate Soc. Hx: single, brother Adelfo is the closest relative, denies smoking, drugs use or drinking Fam. Hx: denied Review of Systems - Constitutional Constitutional: Weight Loss, Weakness - EENT Eyes: absent: As Per HPI, Blind Spots, Blurred Vision, Change in Vision, Decreased Night Vision, Diplopia, Discharge, Dry Eye, Exophthalmos, Floaters, Irritation, Itchy Eyes, Loss of Peripheral Vision, Pain, Photophobia, Requires Corrective Lenses, Sees Flashes, Spots in Vision, Tunnel Vision, Other Visual Disturbances, Loss of Vision, Other Ears: absent: As Per HPI, Decreased Hearing, Ear Discharge, Ear Pain, Tinnitus, Abnormal Hearing, Disequilibrium, Dizziness, Other Nose/Mouth/Throat: absent: As Per HPI, Epistaxis, Nasal Congestion, Nasal Discharge, Nasal Obstruction, Nasal Trauma, Nose Pain, Post Nasal Drip, Sinus Pain, Sinus Pressure, Bleeding Gums, Change in Voice, Dental Pain, Dry Mouth, Dysphagia, Halitosis, Hoarsness, Lip Swelling, Mouth Lesions, Mouth Pain, Odynophagia, Sore Throat, Throat Swelling, Tongue Swelling, Facial Pain, Neck Pain, Neck Mass, Other - Cardiovascular Cardiovascular: Leg Ulcers, Pedal Edema - Respiratory Respiratory: absent: As Per HPI, Cough, Dyspnea, Hemoptysis, Dyspnea on Exertion, Wheezing, Snoring, Stridor, Pain on Inspiration, Chest Congestion, Excessive Mucous Production, Change in Mucous Color, Pain with Coughing, Other - Gastrointestinal Gastrointestinal: absent: As Per HPI, Abdominal Pain, Belching, Bloating, Change in Bowel Habits, Change in Stool Character, Coffee Ground Emesis, Constipation, Cramping, Diarrhea, Dyspepsia, Dysphagia, Early Satiety, Excessive Flatus, Fecal Incontinence, Heartburn, Hematemesis, Hematochezia, Loose Stools, Melena, Nausea, Odynophagia, Temesmus, Vomiting, Other - Genitourinary Genitourinary: absent: As Per HPI, Change in Urinary Stream, Difficulty Urinating, Dysuria, Flank Pain, Hematuria, Pyuria, Nocturia, Urinary Incontinence, Urinary Frequency, Urinary Hesitance, Urinary Urgency, Voiding Freq/Small Amts, Freq UTI, Hx Renal/Bladder Calculi, Hx /Renal Surgery, Bladder Distension, Other - Musculoskeletal Musculoskeletal: Deformity, Muscle Weakness - Integumentary Integumentary: Wounds - Neurological Neurological: Abnormal Gait, Weakness - Psychiatric Psychiatric: Anxiety - Endocrine Endocrine: absent: As Per HPI, Change in Body Appearance, Change in Libido, Cold Intolorance, Deepening of Voice, Excessive Sweating, Fatigue, Flushing, Heat Intolorance, Increase in Ring/Shoe/Hat Size, Palpitations, Polydipsia, Polyphagia, Polyuria, Other - Hematologic/Lymphatic Hematologic: absent: As Per HPI, Easy Bleeding, Easy Bruising, Lymphadenopathy, Other Past Patient History - Infectious Disease Hx of Infectious Diseases: None - Past Medical History & Family History Past Medical History?: Yes - Past Social History Smoking Status: Former Smoker - CARDIAC Hx Atrial Fibrillation: Yes Hx Congestive Heart Failure: Yes Hx Hypertension: Yes - PULMONARY Hx Chronic Obstructive Pulmonary Disease (COPD): Yes (emphysema (per CT/chest)) Hx Pulmonary Embolism: Yes - NEUROLOGICAL Hx Neurological Disorder: No - HEENT Hx HEENT Problems: No - RENAL Hx Chronic Kidney Disease: No - ENDOCRINE/METABOLIC Hx Hypothyroidism: Yes - HEMATOLOGICAL/ONCOLOGICAL Hx Blood Disorders: No - INTEGUMENTARY Hx Dermatological Problems: No - MUSCULOSKELETAL/RHEUMATOLOGICAL Hx Arthritis: Yes (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; BACK NECK) Hx Falls: No - GASTROINTESTINAL Hx Gastrointestinal Disorders: No - GENITOURINARY/GYNECOLOGICAL Hx Genitourinary Disorders: No - PSYCHIATRIC Hx Substance Use: No - SURGICAL HISTORY Hx Tonsillectomy: Yes - ANESTHESIA Hx Anesthesia: No Meds Allergies/Adverse Reactions: Allergies Allergy/AdvReac Type Severity Reaction Status Date / Time No Known Allergies Allergy Verified 09/03/18 06:04 - Medications Medications: Current Medications Acetaminophen (Tylenol 325mg Tab) 650 mg PO Q4 PRN PRN Reason: Temp >100 Albuterol/Ipratropium (Duoneb 3 Mg/0.5 Mg (3 Ml) Ud) 3 ml INH Q6 PRN PRN Reason: Shortness of Breath Docusate Sodium (Colace) 100 mg PO DAILY [facility] Last Admin: 09/07/18 09:25 Dose: 100 mg Famotidine (Pepcid) 20 mg PO DAILY [facility] Last Admin: 09/07/18 09:25 Dose: 20 mg Gabapentin (Neurontin) 100 mg PO BID [facility] Last Admin: 09/07/18 09:25 Dose: 100 mg Piperacillin Sod/Tazobactam (Sod 3.375 gm/ Sodium Chloride) 100 mls @ 200 mls/hr IVPB Q8H [facility]; Protocol Last Admin: 09/07/18 08:21 Dose: 200 mls/hr Vancomycin HCl 750 mg/ Sodium (Chloride) 250 mls @ 250 mls/hr IVPB Q24H [facility]; Protocol Last Admin: 09/07/18 09:24 Dose: 250 mls/hr Levothyroxine Sodium (Synthroid) 75 mcg PO DAILY@0630 [facility] Last Admin: 09/07/18 06:34 Dose: 75 mcg Magnesium Hydroxide (Milk Of Magnesia) 30 ml PO HS PRN PRN Reason: No bowel movement after 3 days Oxycodone HCl (Oxycodone Immediate Release Tab) 10 mg PO Q4H PRN PRN Reason: Pain, moderate (4-7) Last Admin: 09/06/18 17:36 Dose: 10 mg Spironolactone (Aldactone) 50 mg PO DAILY [facility] Last Admin: 09/07/18 09:25 Dose: 50 mg Physical Exam - Constitutional Appears: No Acute Distress, Chronically Ill - Head Exam Head Exam: ATRAUMATIC, NORMAL INSPECTION, NORMOCEPHALIC - Eye Exam Eye Exam: EOMI, Normal appearance, PERRL Pupil Exam: NORMAL ACCOMODATION, PERRL - ENT Exam Additional comments: edentulous - Neck Exam Neck exam: Positive for: Normal Inspection - Respiratory Exam Respiratory Exam: NORMAL BREATHING PATTERN - Cardiovascular Exam Cardiovascular Exam: Tachycardia, Irregular Rhythm - GI/Abdominal Exam GI & Abdominal Exam: Normal Bowel Sounds - Rectal Exam Rectal Exam: Deferred - Exam Exam: NORMAL INSPECTION - Extremities Exam Extremities exam: Positive for: pedal edema, tenderness Additional comments: cyanotic left foot, edema - Back Exam Back exam: NORMAL INSPECTION - Neurological Exam Neurological exam: Alert, Altered - Psychiatric Exam Psychiatric exam: Anxious - Skin Skin Exam: Mottled, Pallor, Pallor Results - Vital Signs Recent Vital Signs: Last Vital Signs Temp 97.6 F 09/07/18 07:30 Pulse 111 H 09/07/18 07:30 Resp 20 09/07/18 07:30 BP 128/82 09/07/18 07:30 Pulse Ox 100 09/07/18 07:30 - Labs Result Diagrams: 09/06/18 11:21 09/06/18 11:21 Assessment & Plan - Assessment and Plan (Free Text) Assessment: Palliative consult DNR/DNI, POLST on chart, PPS 20% I reviewed all Medical records, diagnostic studies, examined and interviewed patient in the bed Patient is alert, oriented X3 with speech that is clear. Patient has unrealistic perception of his condition and is almost illusionary when it comes to care; patient insists he take care of his feet, changes dressings and massages it. Physical exam reveals cachectic male , unable to ambulate and in need for WC Skin is extremely pale looking, dry, poor skin turgor. Breathing is regular, RR 18, denies cough/sputum production. HR 111, irregular rhythm, denies chest pain/SOB, Abdomen flat, soft, active bowel sounds. Patient reports fair appetite, prefers pudding, ice cream or jello. The intake records indicates poor liqiud intakes of 30 cc /day. LEs are swollen, discolored, looking molted, L>R, cool to touch. left foot is cooler than right, I was not able to palpate pedal pulses. Both feet are wrapped in gauze and I could not see the toes as patient preferred I do not remove gauze. Patient is unable to bear weight and is using WC. patient rubs with his bear hands over the both calfs and may cause a risk of introducing infection to those raw skin. patient denied pain at the time of exam. Oxycodone IR PRN available. BP 128/82, HR 111, afebrile WBC 9.3, Hb 9.4, K 5.7. output records indicate 700 cc of urine output which I think is a mistake given PO intake of only 30 cc. That explains elevated K, patient may be dehydrated. I discussed with patient his condition. Patient is convinced of being absolutely capable of taking care of him self and is insisting on returning to [place]. I reassured him of his concerning condition and mentioned that Doctors feel he may need amputation of those necrotic area. Patient was very adamant against amputations . I discussed with patient risk of causing more skin damage if he rubs his legs as he may cause bleeding or introduce infection if his hands were not clean. As I could not get in touch with the brother who is listed as a contact center analyst, I discussed the case with Doctor Kel who agreed that amputation may be necessary. 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 * Patient does not agree with proposed surgical interventions * Non ambulatory due to ischemic changes and edema of both feet * Poor Po intake * Possible dehydration * Hypercalemia * Documented pain of both feet due to ischemia * lack of family support * I do not think patient has capacity of of making informed decisions regarding his health needs Suggestions * Patient needs to be frequently reoriented to his condition and possible risks of sepsis and if suggested surgical interventions were not done * Assist with ADLs * Accurate documentation of Po intake and urine output, often PO fluids to rehydrate patient. I would consider IVF X 1 day, than check again K level and urine output * Continue Oxycodone IR PRN * Plan to JULISSA if decision on surgery is made I will continue reaching out to a patient's brother and further discuss goals of care. Advance care planing 46 min
--- NOTE | 2018-09-07 19:04 | CP.PCM.PN ---
Subjective - Date & Time of Evaluation Date of Evaluation: 09/07/18 Time of Evaluation: 10:00 - Subjective Subjective: clinically same Objective - Vital Signs/Intake and Output Vital Signs (last 24 hours): Temp Pulse Resp BP Pulse Ox 97.2 F L 110 H 20 149/66 99 09/07/18 17:20 09/07/18 17:20 09/07/18 17:20 09/07/18 17:20 09/07/18 17:20 - Medications Medications: Current Medications Acetaminophen (Tylenol 325mg Tab) 650 mg PO Q4 PRN PRN Reason: Temp >100 Albuterol/Ipratropium (Duoneb 3 Mg/0.5 Mg (3 Ml) Ud) 3 ml INH Q6 PRN PRN Reason: Shortness of Breath Docusate Sodium (Colace) 100 mg PO DAILY [facility] Last Admin: 09/07/18 09:25 Dose: 100 mg Famotidine (Pepcid) 20 mg PO DAILY [facility] Last Admin: 09/07/18 09:25 Dose: 20 mg Gabapentin (Neurontin) 100 mg PO BID [facility] Last Admin: 09/07/18 17:57 Dose: 100 mg Piperacillin Sod/Tazobactam (Sod 3.375 gm/ Sodium Chloride) 100 mls @ 200 mls/hr IVPB Q8H [facility]; Protocol Last Admin: 09/07/18 17:54 Dose: 200 mls/hr Vancomycin HCl 750 mg/ Sodium (Chloride) 250 mls @ 250 mls/hr IVPB Q24H [facility]; Protocol Last Admin: 09/07/18 09:24 Dose: 250 mls/hr Levothyroxine Sodium (Synthroid) 75 mcg PO DAILY@0630 [facility] Last Admin: 09/07/18 06:34 Dose: 75 mcg Magnesium Hydroxide (Milk Of Magnesia) 30 ml PO HS PRN PRN Reason: No bowel movement after 3 days Oxycodone HCl (Oxycodone Immediate Release Tab) 10 mg PO Q4H PRN PRN Reason: Pain, moderate (4-7) Last Admin: 09/06/18 17:36 Dose: 10 mg Spironolactone (Aldactone) 50 mg PO DAILY [facility] Last Admin: 09/07/18 09:25 Dose: 50 mg - Labs Labs: 09/06/18 11:21 09/06/18 11:21 PT 29.1 SECONDS (9.7-12.2) H 09/05/18 06:47 INR 2.7 09/05/18 06:47 APTT 44 SECONDS (21-34) H 09/03/18 06:50 - Constitutional Appears: Well - Head Exam Head Exam: ATRAUMATIC, NORMAL INSPECTION, NORMOCEPHALIC - Eye Exam Eye Exam: EOMI, Normal appearance, PERRL Pupil Exam: NORMAL ACCOMODATION, PERRL - ENT Exam ENT Exam: Mucous Membranes Moist, Normal Exam - Neck Exam Neck Exam: Full ROM, Normal Inspection. absent: Lymphadenopathy - Respiratory Exam Respiratory Exam: Decreased Breath Sounds - Cardiovascular Exam Cardiovascular Exam: REGULAR RHYTHM, +S1, +S2 - GI/Abdominal Exam GI & Abdominal Exam: Soft, Diminished Bowel Sounds - Rectal Exam Rectal Exam: Deferred
[2018-09-08] MEDS: Levothyroxine 75 MCG TAB PO SCH (05:47)
[2018-09-08] MEDS: Piperacillin/Tazobact 3.375 GM in Sodium Chloride 100 ML IVPB SCH ×2 (08:11→16:59)
--- NOTE | 2018-09-08 09:08 | CP.PCM.PN ---
Subjective - Date & Time of Evaluation Date of Evaluation: 09/08/18 Time of Evaluation: 08:00 - Subjective Subjective: Code Star: 78 year old male who has been admitted to [facility] gangrenous left 1-3 phalanges. Code shola was called by the patient's nurse because she overheard the patient yelling. Unwitnessed fall. Patient has [employer] in the room, however they stated the camera went off during the fall. The nurse states she found the patient on his knees when she walked into the room. Patient is oriented to person and place. He states it is 2009 but knows the current president and month. Patient states he was sitting up on the edge of the bed because he likes sitting up and he dozed off and then found himself on the floor. He states this happens often at home and he is "used to seeing the floor". Explained to the patient he should be laying down or ask for assistance when trying to get off the bed. Patient states he wants to go home. Discussed with patient and nurse for a head ct w/o contrast. Patient has refused head ct x2. Continue to encourage patient to have the head CT. Objective - Vital Signs/Intake and Output Vital Signs (last 24 hours): Temp Pulse Resp BP Pulse Ox 98.2 F 99 H 18 98/61 L 100 09/07/18 23:27 09/07/18 23:27 09/07/18 23:27 09/07/18 23:27 09/07/18 23:27 - Medications Medications: Current Medications Acetaminophen (Tylenol 325mg Tab) 650 mg PO Q4 PRN PRN Reason: Temp >100 Albuterol/Ipratropium (Duoneb 3 Mg/0.5 Mg (3 Ml) Ud) 3 ml INH Q6 PRN PRN Reason: Shortness of Breath Docusate Sodium (Colace) 100 mg PO DAILY [facility] Last Admin: 09/07/18 09:25 Dose: 100 mg Famotidine (Pepcid) 20 mg PO DAILY [facility] Last Admin: 09/07/18 09:25 Dose: 20 mg Gabapentin (Neurontin) 100 mg PO BID [facility] Last Admin: 09/07/18 17:57 Dose: 100 mg Piperacillin Sod/Tazobactam (Sod 3.375 gm/ Sodium Chloride) 100 mls @ 200 mls/hr IVPB Q8H [facility]; Protocol Last Admin: 09/08/18 08:11 Dose: 200 mls/hr Vancomycin HCl 750 mg/ Sodium (Chloride) 250 mls @ 250 mls/hr IVPB Q24H [facility]; Protocol Last Admin: 09/07/18 09:24 Dose: 250 mls/hr Levothyroxine Sodium (Synthroid) 75 mcg PO DAILY@0630 [facility] Last Admin: 09/08/18 05:47 Dose: 75 mcg Magnesium Hydroxide (Milk Of Magnesia) 30 ml PO HS PRN PRN Reason: No bowel movement after 3 days Oxycodone HCl (Oxycodone Immediate Release Tab) 10 mg PO Q4H PRN PRN Reason: Pain, moderate (4-7) Last Admin: 09/06/18 17:36 Dose: 10 mg Spironolactone (Aldactone) 50 mg PO DAILY [facility] Last Admin: 09/07/18 09:25 Dose: 50 mg - Labs Labs: 09/06/18 11:21 09/06/18 11:21 PT 29.1 SECONDS (9.7-12.2) H 09/05/18 06:47 INR 2.7 09/05/18 06:47 APTT 44 SECONDS (21-34) H 09/03/18 06:50 - Constitutional Appears: No Acute Distress, Cachectic, Chronically Ill - Head Exam Head Exam: NORMAL INSPECTION - Eye Exam Eye Exam: EOMI, Normal appearance - ENT Exam ENT Exam: Mucous Membranes Dry - Respiratory Exam Respiratory Exam: NORMAL BREATHING PATTERN - Cardiovascular Exam Cardiovascular Exam: REGULAR RHYTHM - Extremities Exam Additional comments: LE foot 1-3 phalanges - gangrenous
--- NOTE | 2018-09-08 16:11 | CP.PCM.PN ---
Subjective - Date & Time of Evaluation Date of Evaluation: 09/08/18 Time of Evaluation: 16:08 - Subjective Subjective: Podiatry Progress Note for Dr. Mcpherson 78M seen at bedside for ischemic changes to left foot digits 1, 2, 3, 5. He is AAO x 3 and NAD, resting comfortably in bed. Denies any acute overnight events or new pedal complaints. Denies any recent N/V/F/C/CP/SOB/D/. States that he has no pain in his digits. Objective - Vital Signs/Intake and Output Vital Signs (last 24 hours): Temp Pulse Resp BP Pulse Ox 97.3 F L 92 H 20 124/71 100 09/08/18 09:07 09/08/18 09:07 09/08/18 09:07 09/08/18 09:07 09/08/18 09:07 - Medications Medications: Current Medications Acetaminophen (Tylenol 325mg Tab) 650 mg PO Q4 PRN PRN Reason: Temp >100 Docusate Sodium (Colace) 100 mg PO DAILY [facility] Last Admin: 09/08/18 09:44 Dose: 100 mg Famotidine (Pepcid) 20 mg PO DAILY [facility] Last Admin: 09/08/18 09:44 Dose: 20 mg Gabapentin (Neurontin) 100 mg PO BID [facility] Last Admin: 09/08/18 09:44 Dose: 100 mg Vancomycin HCl 750 mg/ Sodium (Chloride) 250 mls @ 250 mls/hr IVPB Q24H [facility]; Protocol Last Admin: 09/08/18 09:43 Dose: 250 mls/hr Levothyroxine Sodium (Synthroid) 75 mcg PO DAILY@0630 [facility] Last Admin: 09/08/18 05:47 Dose: 75 mcg Magnesium Hydroxide (Milk Of Magnesia) 30 ml PO HS PRN PRN Reason: No bowel movement after 3 days Oxycodone HCl (Oxycodone Immediate Release Tab) 10 mg PO Q4H PRN PRN Reason: Pain, moderate (4-7) Last Admin: 09/06/18 17:36 Dose: 10 mg Spironolactone (Aldactone) 50 mg PO DAILY [facility] Last Admin: 09/08/18 09:44 Dose: 50 mg - Labs Labs: 09/06/18 11:21 09/06/18 11:21 PT 29.1 SECONDS (9.7-12.2) H 09/05/18 06:47 INR 2.7 09/05/18 06:47 APTT 44 SECONDS (21-34) H 09/03/18 06:50 - Constitutional Appears: Well, Non-toxic, No Acute Distress - Extremities Exam Additional comments: Left lower extremity focused exam: Vasc: DP/PT pulses non-palpable. Skin temperature warm to cool from proximal to distal. CFT > 3 seconds in 4th digit and non-existent in gangrenous digits. No edema noted Neuro: Epicritic and protective sensation grossly diminished Derm: Dry gangrenous changes noted to dorsal aspect of hallux, entirety of second and fifth digits. All gangrenous changes appear to be stable at this time. Purple/dusky appearance noted to third digit, clinically same as yesterday. No open lesions, wounds, maceration, xerosis, abnormal pigmentation or abnormal growths noted. No signs of infection appreciated. No clinical changes to digits noted MSK: No pain with palpation of digits. No ROM at any digit. MMT 4/5 in all muscle groups - Neurological Exam Neurological Exam: Alert, Awake, Oriented x3 - Psychiatric Exam Psychiatric exam: Normal Affect, Normal Mood Assessment and Plan - Assessment and Plan (Free Text) Assessment: 78M seen at bedside for ischemic changes to left foot digits 1, 2, 3, 5 Plan: Patient seen and evaluated Plan discussed with Dr. Mcpherson Afebrile, absent leukocytosis Foot xrays reviewed: No signs of OM. Degenerative osseous changes appreciated Patient refusing vascular intervention at this time No plan for surgical intervention at this time Digits dressed with betadine, DSD Podiatry will continue to follow while patient in house
--- NOTE | 2018-09-08 17:07 | CP.PCM.PN ---
Subjective - Date & Time of Evaluation Date of Evaluation: 09/08/18 Time of Evaluation: 11:00 - Subjective Subjective: clinically same Objective - Vital Signs/Intake and Output Vital Signs (last 24 hours): Temp Pulse Resp BP Pulse Ox 96.1 F L 119 H 18 121/70 99 09/08/18 15:00 09/08/18 15:00 09/08/18 15:00 09/08/18 15:00 09/08/18 15:00 - Medications Medications: Current Medications Acetaminophen (Tylenol 325mg Tab) 650 mg PO Q4 PRN PRN Reason: Temp >100 Docusate Sodium (Colace) 100 mg PO DAILY [facility] Last Admin: 09/08/18 09:44 Dose: 100 mg Famotidine (Pepcid) 20 mg PO DAILY [facility] Last Admin: 09/08/18 09:44 Dose: 20 mg Gabapentin (Neurontin) 100 mg PO BID [facility] Last Admin: 09/08/18 09:44 Dose: 100 mg Vancomycin HCl 750 mg/ Sodium (Chloride) 250 mls @ 250 mls/hr IVPB Q24H [facility]; Protocol Last Admin: 09/08/18 09:43 Dose: 250 mls/hr Levothyroxine Sodium (Synthroid) 75 mcg PO DAILY@0630 [facility] Last Admin: 09/08/18 05:47 Dose: 75 mcg Magnesium Hydroxide (Milk Of Magnesia) 30 ml PO HS PRN PRN Reason: No bowel movement after 3 days Oxycodone HCl (Oxycodone Immediate Release Tab) 10 mg PO Q4H PRN PRN Reason: Pain, moderate (4-7) Last Admin: 09/06/18 17:36 Dose: 10 mg Spironolactone (Aldactone) 50 mg PO DAILY [facility] Last Admin: 09/08/18 09:44 Dose: 50 mg - Labs Labs: 09/06/18 11:21 09/06/18 11:21 PT 29.1 SECONDS (9.7-12.2) H 09/05/18 06:47 INR 2.7 09/05/18 06:47 APTT 44 SECONDS (21-34) H 09/03/18 06:50
--- NOTE | 2018-09-08 19:37 | CP.PCM.PN ---
Subjective - Date & Time of Evaluation Date of Evaluation: 09/08/18 Time of Evaluation: 08:00 - Subjective Subjective: denies fever refusing OR, vascular intervention Objective - Vital Signs/Intake and Output Vital Signs (last 24 hours): Temp Pulse Resp BP Pulse Ox 96.1 F L 119 H 18 121/70 99 09/08/18 15:00 09/08/18 15:00 09/08/18 15:00 09/08/18 15:00 09/08/18 15:00 - Medications Medications: Current Medications Acetaminophen (Tylenol 325mg Tab) 650 mg PO Q4 PRN PRN Reason: Temp >100 Docusate Sodium (Colace) 100 mg PO DAILY [facility] Last Admin: 09/08/18 09:44 Dose: 100 mg Famotidine (Pepcid) 20 mg PO DAILY [facility] Last Admin: 09/08/18 09:44 Dose: 20 mg Gabapentin (Neurontin) 100 mg PO BID [facility] Last Admin: 09/08/18 18:40 Dose: 100 mg Vancomycin HCl 750 mg/ Sodium (Chloride) 250 mls @ 250 mls/hr IVPB Q24H [facility]; Protocol Last Admin: 09/08/18 09:43 Dose: 250 mls/hr Levothyroxine Sodium (Synthroid) 75 mcg PO DAILY@0630 [facility] Last Admin: 09/08/18 05:47 Dose: 75 mcg Magnesium Hydroxide (Milk Of Magnesia) 30 ml PO HS PRN PRN Reason: No bowel movement after 3 days Oxycodone HCl (Oxycodone Immediate Release Tab) 10 mg PO Q4H PRN PRN Reason: Pain, moderate (4-7) Last Admin: 09/06/18 17:36 Dose: 10 mg Spironolactone (Aldactone) 50 mg PO DAILY [facility] Last Admin: 09/08/18 09:44 Dose: 50 mg - Labs Labs: 09/06/18 11:21 09/06/18 11:21 PT 29.1 SECONDS (9.7-12.2) H 09/05/18 06:47 INR 2.7 09/05/18 06:47 APTT 44 SECONDS (21-34) H 09/03/18 06:50 - Constitutional Appears: Non-toxic, Cachectic, Chronically Ill - Head Exam Head Exam: NORMOCEPHALIC - Eye Exam Eye Exam: absent: Scleral icterus - ENT Exam ENT Exam: Mucous Membranes Dry - Neck Exam Neck Exam: absent: Lymphadenopathy - Respiratory Exam Respiratory Exam: Decreased Breath Sounds - Cardiovascular Exam Cardiovascular Exam: REGULAR RHYTHM - GI/Abdominal Exam GI & Abdominal Exam: Distended, Soft - Rectal Exam Rectal Exam: Deferred - Exam Exam: NORMAL INSPECTION - Extremities Exam Extremities Exam: absent: Pedal Edema - Back Exam Back Exam: absent: CVA tenderness (L), CVA tenderness (R) - Neurological Exam Neurological Exam: Alert, Awake, Oriented x3 - Psychiatric Exam Psychiatric exam: Depressed - Skin Skin Exam: Dry Assessment and Plan (1) Atrial fibrillation Status: Acute (2) Gangrene of toe of left foot Status: Acute (3) Skin ulcer of toe of left foot with necrosis of muscle Status: Acute (4) Vascular occlusion Status: Acute - Assessment and Plan (Free Text) Assessment: cont iv rx as ordered
[2018-09-09] MEDS: Levothyroxine 75 MCG TAB PO SCH (06:38)
[2018-09-09] MEDS: oxyCODONE 10 mg Immediate Release Tab PO PRN ×2 (06:44→16:36)
[2018-09-09] MEDS ORDERED: Sodium Chloride 0.9% 1,000 ML IV SCH (09:15)
[2018-09-09 12:17] LABS: BASO # 0.1 K/uL (0.0-0.2); BASO % 1.1 % (0.0-2.0); EOS # 0.2 K/uL (0.0-0.7); EOS % 2.4 % (0.0-4.0); HEMOGLOBIN 9.6 g/dL (12.0-18.0); LYMPH # 1.3 K/uL (1.0-4.3); LYMPH % 17.1 % (20.0-40.0); MEAN CELL VOLUME 91.4 fL (80.0-94.0); MEAN CORPUSCULAR HEMOGLOBIN 29.2 pg (27.0-31.0); MEAN CORPUSCULAR HGB CONC 31.9 g/dL (33.0-37.0); MEAN PLATELET VOLUME 7.9 fL (7.2-11.7); MONO # 0.8 K/uL (0.0-0.8); MONO % 10.8 % (0.0-10.0); NEUT % 68.6 % (50.0-75.0); NRBC % 0.1 % (0.0-2.0); RBC 3.28 Mil/uL (4.40-5.90); RED CELL DISTRIBUTION WIDTH 15.1 % (11.5-14.5); WHITE BLOOD COUNT 7.3 K/uL (4.8-10.8)
[2018-09-09 12:29] LABS: BLOOD UREA NITROGEN 20 mg/dL (9-20); GFR NON-AFRICAN AMERICAN 54
[2018-09-09 12:30] LABS: CALCIUM 9.5 mg/dl (8.6-10.4)
[2018-09-09] MEDS ORDERED: Sod Polystyrene Sulf 15 gm/60 ml Susp PO ONE (12:45)
[2018-09-09 14:20] LABS: INR 1.4; PROTHROMBIN TIME 15.3 SECONDS (9.7-12.2)
--- NOTE | 2018-09-09 16:08 | RAD ---
Date of service: 09/09/2018 HISTORY: placement of PICC LINE COMPARISON: 09/03/2018 FINDINGS: LUNGS: No active pulmonary disease. PLEURA: Blunting of both costophrenic angles may reflect small pleural effusions or chronic pleural thickening. CARDIOVASCULAR: There is atherosclerotic calcification of the thoracic aorta. Normal cardiac size. Right PICC catheter noted, terminating in the region of the superior vena cava. OSSEOUS STRUCTURES: No significant abnormalities. VISUALIZED UPPER ABDOMEN: Normal. OTHER FINDINGS: None. IMPRESSION: Right PICC catheter terminating in the region of the superior vena cava. Possible very small bilateral pleural effusion.
[2018-09-09 16:49] VITALS: BP 110/59; PULSE 100; RESP 20; TEMP 97.1; O2SAT 97
--- NOTE | 2018-09-09 17:02 | CP.PCM.PN ---
Subjective - Date & Time of Evaluation Date of Evaluation: 09/09/18 Time of Evaluation: 11:00 - Subjective Subjective: Patient seen today awake, alert, oriented to person and place, denies any complaints vss and labs reviewed patient refusing any surgical intervention for dry gangrene of B/L toes Objective - Vital Signs/Intake and Output Vital Signs (last 24 hours): Temp Pulse Resp BP Pulse Ox 97.1 F L 100 H 20 110/59 L 97 09/09/18 15:47 09/09/18 15:47 09/09/18 15:47 09/09/18 15:47 09/09/18 15:47 Intake and Output: 09/09/18 09/09/18 06:59 18:59 Intake Total 350 550 Balance 350 550 - Medications Medications: Current Medications Acetaminophen (Tylenol 325mg Tab) 650 mg PO Q4 PRN PRN Reason: Temp >100 Docusate Sodium (Colace) 100 mg PO DAILY [facility] Last Admin: 09/09/18 10:44 Dose: 100 mg Famotidine (Pepcid) 20 mg PO DAILY [facility] Last Admin: 09/09/18 10:43 Dose: 20 mg Gabapentin (Neurontin) 100 mg PO BID [facility] Last Admin: 09/09/18 10:43 Dose: 100 mg Vancomycin HCl 750 mg/ Sodium (Chloride) 250 mls @ 250 mls/hr IVPB Q24H [facility]; Protocol Last Admin: 09/09/18 11:44 Dose: 250 mls/hr Sodium Chloride (Sodium Chloride 0.9%) 1,000 mls @ 100 mls/hr IV .Q10H [facility] Last Admin: 09/09/18 10:44 Dose: 100 mls/hr Levothyroxine Sodium (Synthroid) 75 mcg PO DAILY@0630 [facility] Last Admin: 09/09/18 06:38 Dose: 75 mcg Magnesium Hydroxide (Milk Of Magnesia) 30 ml PO HS PRN PRN Reason: No bowel movement after 3 days Oxycodone HCl (Oxycodone Immediate Release Tab) 10 mg PO Q4H PRN PRN Reason: Pain, moderate (4-7) Last Admin: 09/09/18 16:36 Dose: 10 mg Spironolactone (Aldactone) 50 mg PO DAILY [facility] Last Admin: 09/09/18 10:44 Dose: 50 mg - Labs Labs: 09/09/18 12:04 09/09/18 12:04 PT 15.3 SECONDS (9.7-12.2) H 09/09/18 13:54 INR 1.4 09/09/18 13:54 APTT 44 SECONDS (21-34) H 09/03/18 06:50 Assessment and Plan - Assessment and Plan (Free Text) Assessment: A/P 78 yr old male with pmhx of Atrial Fibrillation, CHF, COPD , HTN, Hyp othyroidism, Pulmonary Embolism admitted for [facility] for Gangrene of toe of left foot, Toe gangrene, Atrial fibrillation, Vascular occlusion todays labs repeated - wbc- WNL and K- 5.7 , kayoxalate given , patient a febrile and bp stable , Dr. Chavez consulted and patient refusing any surgical intervention Long discussion done with patietn regarding procedure for LE foot ulcer , patient keep refusing states wants go back to [place] and continue iv medications and if not improved he will think about procedure D/w Dr. Lima regarding duration of antibiotics, continue 3 weeks of vanco mycin s/p PICC line today seen by Dr. Benavides , cleared fro discharge back to [place] and Dr. Benavides will follow the patient at [facility] view THE FOLLOWING INFORMATION SENT TO [place] TO FOLLOW Please continue Vancomycin for 3 weeks Please keep the vanco trough level between 10-20 ( last vanco trough today 17.6) Please do vanco trough every Wednesday and Please do BMP q wednesday Please resume all other medications Please monitor B/L foot if getting worse please call Dr. Benavides Please call Dr. Wilkins for podiatry consult and monitor wound Please do PICC LINE CARE PER PROTOCOL
--- NOTE | 2018-09-09 18:57 | CP.PCM.PN ---
Subjective - Date & Time of Evaluation Date of Evaluation: 09/09/18 Time of Evaluation: 08:00 - Subjective Subjective: vss and labs reviewed patient refusing any surgical intervention for dry gangrene of B/L toes Objective - Vital Signs/Intake and Output Vital Signs (last 24 hours): Temp Pulse Resp BP Pulse Ox 97.1 F L 100 H 20 110/59 L 97 09/09/18 15:47 09/09/18 15:47 09/09/18 15:47 09/09/18 15:47 09/09/18 15:47 Intake and Output: 09/09/18 09/09/18 06:59 18:59 Intake Total 350 550 Balance 350 550 - Medications Medications: Current Medications Acetaminophen (Tylenol 325mg Tab) 650 mg PO Q4 PRN PRN Reason: Temp >100 Docusate Sodium (Colace) 100 mg PO DAILY [facility] Last Admin: 09/09/18 10:44 Dose: 100 mg Famotidine (Pepcid) 20 mg PO DAILY [facility] Last Admin: 09/09/18 10:43 Dose: 20 mg Gabapentin (Neurontin) 100 mg PO BID [facility] Last Admin: 09/09/18 17:55 Dose: 100 mg Vancomycin HCl 750 mg/ Sodium (Chloride) 250 mls @ 250 mls/hr IVPB Q24H [facility]; Protocol Last Admin: 09/09/18 11:44 Dose: 250 mls/hr Sodium Chloride (Sodium Chloride 0.9%) 1,000 mls @ 100 mls/hr IV .Q10H [facility] Last Admin: 09/09/18 10:44 Dose: 100 mls/hr Levothyroxine Sodium (Synthroid) 75 mcg PO DAILY@0630 [facility] Last Admin: 09/09/18 06:38 Dose: 75 mcg Magnesium Hydroxide (Milk Of Magnesia) 30 ml PO HS PRN PRN Reason: No bowel movement after 3 days Oxycodone HCl (Oxycodone Immediate Release Tab) 10 mg PO Q4H PRN PRN Reason: Pain, moderate (4-7) Last Admin: 09/09/18 16:36 Dose: 10 mg Spironolactone (Aldactone) 50 mg PO DAILY [facility] Last Admin: 09/09/18 10:44 Dose: 50 mg - Labs Labs: 09/09/18 12:04 09/09/18 12:04 PT 15.3 SECONDS (9.7-12.2) H 09/09/18 13:54 INR 1.4 09/09/18 13:54 APTT 44 SECONDS (21-34) H 09/03/18 06:50 - Constitutional Appears: Non-toxic, Cachectic, Chronically Ill - Head Exam Head Exam: NORMAL INSPECTION - Eye Exam Eye Exam: absent: Scleral icterus - ENT Exam ENT Exam: Mucous Membranes Dry - Neck Exam Neck Exam: Normal Inspection - Respiratory Exam Respiratory Exam: Decreased Breath Sounds, Clear to Ausculation Bilateral - Cardiovascular Exam Cardiovascular Exam: REGULAR RHYTHM - GI/Abdominal Exam GI & Abdominal Exam: Distended, Soft. absent: Tenderness - Rectal Exam Rectal Exam: Deferred - Exam Exam: NORMAL INSPECTION - Extremities Exam Extremities Exam: absent: Pedal Edema - Back Exam Back Exam: absent: CVA tenderness (L), CVA tenderness (R) - Neurological Exam Neurological Exam: Alert, Awake - Psychiatric Exam Psychiatric exam: Depressed - Skin Skin Exam: Dry Assessment and Plan (1) Atrial fibrillation Status: Acute (2) Gangrene of toe of left foot Status: Acute (3) Skin ulcer of toe of left foot with necrosis of muscle Status: Acute (4) Vascular occlusion Status: Acute - Assessment and Plan (Free Text) Assessment: gangrene digits cellulitis severe PVD d/c to [facility] poor prognosis refusing rx
--- NOTE | 2018-09-09 20:36 | CP.PCM.PN ---
Subjective - Date & Time of Evaluation Date of Evaluation: 09/09/18 Time of Evaluation: 10:15 - Subjective Subjective: clinically same Objective - Vital Signs/Intake and Output Vital Signs (last 24 hours): Temp Pulse Resp BP Pulse Ox 97.1 F L 100 H 20 110/59 L 97 09/09/18 15:47 09/09/18 15:47 09/09/18 15:47 09/09/18 15:47 09/09/18 15:47 Intake and Output: 09/09/18 09/10/18 18:59 06:59 Intake Total 550 Balance 550 - Medications Medications: Current Medications Acetaminophen (Tylenol 325mg Tab) 650 mg PO Q4 PRN PRN Reason: Temp >100 Docusate Sodium (Colace) 100 mg PO DAILY [facility] Last Admin: 09/09/18 10:44 Dose: 100 mg Famotidine (Pepcid) 20 mg PO DAILY [facility] Last Admin: 09/09/18 10:43 Dose: 20 mg Gabapentin (Neurontin) 100 mg PO BID [facility] Last Admin: 09/09/18 17:55 Dose: 100 mg Vancomycin HCl 750 mg/ Sodium (Chloride) 250 mls @ 250 mls/hr IVPB Q24H [facility]; Protocol Last Admin: 09/09/18 11:44 Dose: 250 mls/hr Sodium Chloride (Sodium Chloride 0.9%) 1,000 mls @ 100 mls/hr IV .Q10H [facility] Last Admin: 09/09/18 10:44 Dose: 100 mls/hr Levothyroxine Sodium (Synthroid) 75 mcg PO DAILY@0630 [facility] Last Admin: 09/09/18 06:38 Dose: 75 mcg Magnesium Hydroxide (Milk Of Magnesia) 30 ml PO HS PRN PRN Reason: No bowel movement after 3 days Oxycodone HCl (Oxycodone Immediate Release Tab) 10 mg PO Q4H PRN PRN Reason: Pain, moderate (4-7) Last Admin: 09/09/18 16:36 Dose: 10 mg Spironolactone (Aldactone) 50 mg PO DAILY [facility] Last Admin: 09/09/18 10:44 Dose: 50 mg - Labs Labs: 09/09/18 12:04 09/09/18 12:04 PT 15.3 SECONDS (9.7-12.2) H 09/09/18 13:54 INR 1.4 09/09/18 13:54 APTT 44 SECONDS (21-34) H 09/03/18 06:50
--- NOTE | 2018-09-10 04:54 | CON ---
DATE: 09/09/2018 PSYCHIATRIC CONSULTATION HISTORY OF PRESENT ILLNESS: The patient is a 78-year-old male who is a resident of [facility] at [facility] for the last three years. The patient was transferred here complaining of pain in his left foot. The patient has a history of PVD. The patient was noted to have gangrene of the toe of his left foot. The patient was referred after the patient was refusing to undergo surgery. The patient states that he wanted to be treated first with antibiotic and if the condition gets worse, then he will consider surgery. The patient as per chart has history of schizophrenia, but the patient denies having schizophrenia. The patient states he has been followed at [facility] outpatient program and was seeing Dr. Wheat in the past, and he was taking medications for depression and anxiety. The patient has been in the snf for three years at [facility]. The patient has no behavioral problems and nothing seems to be any symptoms of schizophrenia and has no major behavioral problems. Today, the patient states that he does not want surgery at this time, but wants antibiotic treatment and will consider further treatment if antibiotic has not resolved. PAST PSYCHIATRIC HISTORY: History of depression and anxiety. I doubt schizophrenia. The patient denies having symptoms of schizophrenia. No paranoia. No hallucinations. MEDICAL HISTORY: History of cellulitis and gangrene of the left foot actually toes, atrial fibrillation, CHF, COPD. DRUG AND ALCOHOL HISTORY: The patient is a smoker. ALLERGIES: THE PATIENT HAS NO KNOWN ALLERGIES. PSYCHOSOCIAL HISTORY: The patient is a resident of [facility] at [facility] for three years. MEDICATIONS: List of current medications: Aldactone, Colace, Neurontin, oxycodone, Pepcid, vancomycin, Synthroid. PHYSICAL EXAMINATION: VITAL SIGNS: Temperature 97.2, blood pressure 121/73, respirations 18, and oxygen saturation is 100%. REVIEW OF SYSTEMS: CONSTITUTIONAL: The patient is alert and oriented x3. He is about 5 feet 9 inches, looks cachectic, weighs 90 pounds, cooperative. The patient states he does not want surgery at this time. SKIN: No diaphoresis. HEENT: No headache. No dizziness. NECK: Supple. RESPIRATORY: No dyspnea. CARDIOVASCULAR: No chest pain. GASTROINTESTINAL: The patient is eating well. EXTREMITIES: Complaining of pain in his left foot. The patient has gangrene of the left foot especially in his toes. MUSCULOSKELETAL: Feels weak. NEUROLOGIC: Alert and oriented x3. MENTAL STATUS EXAMINATION: Skinny looking male who weighs 90 pounds and height is 5 feet 9 inches, seen in his room, in hospital gown. Mood is dysphoric. Affect is reactive. Speech is spontaneous. Thought process is coherent. Thought content, no psychosis. No suicidal or homicidal ideation. The patient is refusing surgery at this time, wants antibiotic treatment but to reassess the condition if the antibiotic will fail. He also wants to go back to [facility] where he has been there for three years. Attention and memory seems to be fair. Insight and judgment limited. Impulse control is fair. IMPRESSION: History of depression and anxiety. Doubt schizophrenia. The patient has been off psychiatric medications for many years and nothing seems to be any symptoms of schizophrenia. History of mood disorder secondary to medical problems. History of gangrene of his left foot. PLAN AND RECOMMENDATION: The patient is seen. Meds reviewed. Continue antibiotics as ordered. The patient at this time, despite his psych history, is still able to decide by himself and the patient still has decisional capacity to manage his medical affairs. Quinton Ortiz MD
== END 2018-09-09 21:07 | DRG 300 ==
LOC: C.ER 05:54 → C.9E 08:19 → C.6T 08:37
PROVIDERS: ADMIT Internal Medicine Nephrology; ATTEND Internal Medicine Nephrology
PROC: 02HV33Z Insertion of Infusion Device into Superior Vena Cava, Percutaneous Approach (ICD-10-PCS; principal; 2018-09-09)
DX: I70.268 Atherosclerosis of native arteries of extremities with gangrene, other extremity (principal); R64 Cachexia; I48.91 Unspecified atrial fibrillation; I11.0 Hypertensive heart disease with heart failure; I50.9 Heart failure, unspecified; J43.9 Emphysema, unspecified; E83.52 Hypercalcemia; E86.0 Dehydration; L97.523 Non-pressure chronic ulcer of other part of left foot with necrosis of muscle; F20.9 Schizophrenia, unspecified; E03.9 Hypothyroidism, unspecified; F32.9 Major depressive disorder, single episode, unspecified; L98.499 Non-pressure chronic ulcer of skin of other sites with unspecified severity; L03.032 Cellulitis of left toe; Z87.891 Personal history of nicotine dependence; Z86.711 Personal history of pulmonary embolism

== ENCOUNTER 2018-09-21 12:36 | Inpatient (IN) | payer MEDICARE, MEDICAID ==
[2018-09-21 12:36] VITALS: PULSE 120; BMI 15.3
[2018-09-21] MEDS ORDERED: Sodium Chloride 0.9% 1,000 ML IV ONE ×2 (13:25→15:27)
[2018-09-21] MEDS ORDERED: Sodium Chloride 0.9% 1,000 ML ONE ×2 (13:51→15:49)
[2018-09-21 13:57] LABS: BASO # 0.1 K/uL (0.0-0.2); BASO % 0.6 % (0.0-2.0); EOS % 0.1 % (0.0-4.0); HEMOGLOBIN 11.4 g/dL (12.0-18.0); LYMPH # 0.7 K/uL (1.0-4.3); LYMPH % 5.3 % (20.0-40.0); MEAN CELL VOLUME 91.4 fL (80.0-94.0); MEAN CORPUSCULAR HEMOGLOBIN 29.1 pg (27.0-31.0); MEAN CORPUSCULAR HGB CONC 31.8 g/dL (33.0-37.0); MEAN PLATELET VOLUME 8.8 fL (7.2-11.7); MONO # 0.5 K/uL (0.0-0.8); MONO % 3.7 % (0.0-10.0); NEUT # 11.3 K/uL (1.8-7.0); NEUT % 90.3 % (50.0-75.0); NRBC % 0.2 % (0.0-2.0); RBC 3.92 Mil/uL (4.40-5.90); RED CELL DISTRIBUTION WIDTH 15.8 % (11.5-14.5)
[2018-09-21 13:58] LABS: PLATELET COUNT 219 K/uL (130-400); WHITE BLOOD COUNT 12.5 K/uL (4.8-10.8)
[2018-09-21 14:06] LABS: INR 2.4; PROTHROMBIN TIME 26.6 SECONDS (9.7-12.2)
--- NOTE | 2018-09-21 14:10 | RAD ---
Date of service: 09/21/2018 PROCEDURE: CHEST RADIOGRAPH, 1 VIEW HISTORY: SOB COMPARISON: 09/09/2018 FINDINGS: LUNGS: Bilateral hyperinflation compatible paddle with background COPD as before. Right costophrenic angle and inverted hemidiaphragm similar. Interval increased blunting of left costophrenic angle here interval increase left pleural effusion with or without pleural thickening inferred. PLEURA: No pneumothorax or pleural fluid seen. CARDIOVASCULAR: There is presence of aortic atherosclerotic calcification on x-ray. Minimal cardiomegalyNo significant appearing pulmonary venous congestion. OSSEOUS STRUCTURES: Bilateral shoulder arthrosis. VISUALIZED UPPER ABDOMEN: Normal. OTHER FINDINGS: None. IMPRESSION: Background COPD. Interval increased left pleural effusion-currently still small. Other findings as above.
--- NOTE | 2018-09-21 14:31 | C.PDOC ---
History Of Present Illness 78 year old male presents to the emergency department from longterm. Patient is a poor historian, complains of left foot pain and decreased appetite since yesterday. Patient's labwork was done yesterday which [place] [address]. Patient takes antibiotics at the longterm. Patient currently states that his toes are giving him problems with his pain and redness spreading superiorly to the left lower extremity. Patient is to be admitted for failure to thrive and gangrene of left foot. Time Seen by Provider: 09/21/18 13:19 Chief Complaint (Nursing): Medical Clearance History Per: Patient History/Exam Limitations: clinical condition Onset/Duration Of Symptoms: Days Current Symptoms Are (Timing): Still Present Past Medical History Reviewed: Historical Data, Nursing Documentation, Vital Signs - Medical History PMH: Arthritis (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; BACK NECK), Atrial Fibrillation, CHF, COPD (emphysema (per CT/chest)), HTN, Hypothyroidism, Pulmonary Embolism Denies: Deep Vein Thrombosis, Chronic Kidney Disease Surgical History: Back Surgery, Tonsillectomy Denies: Pacemaker - [facility] Procedures ASSISTANCE WITH RESPIRATORY VENTILATION, 24-96 HRS, CPAP (10/10/15) DRAINAGE OF LEFT PLEURAL CAVITY, PERCUTANEOUS APPROACH (03/17/16) DRAINAGE OF RIGHT PLEURAL CAVITY, PERCUTANEOUS APPROACH (03/17/16) INSERTION OF ENDOTRACHEAL AIRWAY INTO TRACHEA, VIA OPENING (03/17/16) INSERTION OF INFUSION DEV INTO SUP VENA CAVA, PERC APPROACH (09/03/18) INTRODUCTION OF SERUM/TOX/VACCINE INTO MUSCLE, PERC APPROACH (03/17/16) PERFORMANCE OF CARDIAC OUTPUT, SINGLE, MANUAL (03/17/16) RESPIRATORY VENTILATION, 24-96 CONSECUTIVE HOURS (03/17/16) Family History: States: No Known Family Hx - Social History Hx Tobacco Use: Yes Hx Alcohol Use: No Hx Substance Use: No - Immunization History Hx Tetanus Toxoid Vaccination: No Hx Influenza Vaccination: No Hx Pneumococcal Vaccination: No Review Of Systems Gastrointestinal: Positive for: Other (decreased appetite) Musculoskeletal: Positive for: Foot Pain (left) Physical Exam - Physical Exam Appears: Non-toxic, No Acute Distress, Other (cachectic, thin, skeletal) Skin: No Normal Color, Warm, Dry, Other (gangrene to left foot) Head: Atraumatic, Normacephalic Eye(s): bilateral: Normal Inspection, PERRL, EOMI Oral Mucosa: Moist Neck: Normal, Supple Chest: Symmetrical, No Tenderness Cardiovascular: Rhythm Regular, No Murmur Respiratory: Normal Breath Sounds, No Rales, No Rhonchi, No Wheezing Gastrointestinal/Abdominal: Soft, No Tenderness, No Guarding, No Rebound Extremity: Other (non-viable left foot with well demarcated area of ischemia to the proximal metatarsal) Neurological/Psych: Oriented x3, Normal Speech, Normal Cognition ED Course And Treatment - Laboratory Results Result Diagrams: 09/21/18 13:47 Lab Results: PT 26.6 SECONDS (9.7-12.2) H 09/21/18 13:47 INR 2.4 09/21/18 13:47 APTT 44 SECONDS (21-34) H 09/21/18 13:47 Lab Interpretation: Abnormal ECG Rhythm: Atrial Fibrillation (with rapid response, poor R wave progression to V3) ECG Interpretation: Abnormal Interpretation Of ECG: Rapid atrial fibrillation at 115bpm - Radiology CXR: Viewed By Me, Read By Radiologist CXR Interpretation: Yes: COPD, Other (Small left pleural effusion) - Physician Consult Information Time Consulting Physician Contacted: 15:09 Physician Contacted: Mitchell Anderson Outcome Of Conversation: Patient to be admitted for management of failure to thrive and surgical evaluation and treatment of gangrene of left foot.. Medical Decision Making Medical Decision Making: Plan: EKG Chemistry Hematology NaCl IV Fluids NaCl IV Fluids Blood Culture Urinalysis Disposition - Disposition Disposition: HOSPITALIZED Disposition Time: 15:10 Condition: FAIR - POA Present On Arrival: None - Clinical Impression Clinical Impression: Atrial fibrillation, Malnutrition, Gangrene of left foot, Failure to thrive in adult - Scribe Statement The provider has reviewed the documentation as recorded by the Scribe (Yuri Jorge) Provider Attestation: All medical record entries made by the Scribe were at my direction and personally dictated by me. I have reviewed the chart and agree that the record accurately reflects my personal performance of the history, physical exam, medical decision making, and the department course for this patient. I have also personally directed, reviewed, and agree with the discharge instructions and disposition.
[2018-09-21 14:36] LABS: BANDS 6 % (0-2); LYMPHOCYTE 4 % (20-40); MONOCYTE 4 % (0-10); NEUTROPHIL 86 % (50-75); PLATELET ESTIMATE NORMAL (NORMAL); TOTAL CELLS COUNTED 100
[2018-09-21 14:37] LABS: ANISOCYTOSIS SLIGHT; BURR CELLS SLIGHT
[2018-09-21 15:21] LABS: ALB/GLOB RATIO 0.9 (1.0-2.1); ALBUMIN 3.1 g/dL (3.5-5.0); ALT/SGPT 47 U/L (21-72); AST/SGOT 87 U/L (17-59); BLOOD UREA NITROGEN 50 mg/dL (9-20); CALCIUM 9.9 mg/dl (8.6-10.4); GFR NON-AFRICAN AMERICAN 59
[2018-09-21] MEDS ORDERED: Magnesium Hydroxide Susp 30 ml UD PO PRN (16:53)
[2018-09-21] MEDS ORDERED: Albuterol-Ipratrop 3 mg / 0.5 (3 ml) UD INH PRN (16:53)
--- NOTE | 2018-09-21 17:03 | CP.PCM.HP ---
Present on Admission - Present on Admission Any Indicators Present on Admission: No Past Patient History - Infectious Disease Hx of Infectious Diseases: None - Past Medical History & Family History Past Medical History?: Yes - Past Social History Smoking Status: Former Smoker - CARDIAC Hx Atrial Fibrillation: Yes Hx Congestive Heart Failure: Yes Hx Hypertension: Yes Hx Pacemaker: No - PULMONARY Hx Chronic Obstructive Pulmonary Disease (COPD): Yes (emphysema (per CT/chest)) Hx Pulmonary Embolism: Yes - NEUROLOGICAL Hx Neurological Disorder: No - HEENT Hx HEENT Problems: No - RENAL Hx Chronic Kidney Disease: No - ENDOCRINE/METABOLIC Hx Hypothyroidism: Yes - HEMATOLOGICAL/ONCOLOGICAL Hx Cancer: No - INTEGUMENTARY Hx Dermatological Problems: Yes Other/Comment: LEFT FOOT NECROSIS - MUSCULOSKELETAL/RHEUMATOLOGICAL Hx Arthritis: Yes (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; BACK NECK) - GASTROINTESTINAL Hx Gastrointestinal Disorders: Yes Hx Gastroesophageal Reflux: Yes - GENITOURINARY/GYNECOLOGICAL Hx Genitourinary Disorders: No - PSYCHIATRIC Hx Substance Use: No - SURGICAL HISTORY Hx Tonsillectomy: Yes - ANESTHESIA Hx Anesthesia: No Meds Allergies/Adverse Reactions: Allergies Allergy/AdvReac Type Severity Reaction Status Date / Time No Known Allergies Allergy Verified 09/21/18 13:01 Results - Vital Signs Recent Vital Signs: Last Vital Signs Temp 96.5 F L 09/21/18 16:49 Pulse 122 H 09/21/18 16:40 Resp 28 H 09/21/18 16:40 BP 111/78 09/21/18 16:40 Pulse Ox 97 09/21/18 16:49 - Labs Result Diagrams: 09/21/18 13:47 09/21/18 14:58 Labs: Laboratory Results - last 24 hr 09/21/18 09/21/18 09/21/18 12:49 13:47 13:47 WBC 12.5 H D RBC 3.92 L Hgb 11.4 L Hct 35.9 MCV 91.4 MCH 29.1 MCHC 31.8 L RDW 15.8 H Plt Count 219 D MPV 8.8 Neut % (Auto) 90.3 H Lymph % (Auto) 5.3 L [place] % (Auto) 3.7 Eos % (Auto) 0.1 Baso % (Auto) 0.6 Neut # (Auto) 11.3 H Lymph # (Auto) 0.7 L [place] # (Auto) 0.5 Eos # (Auto) 0.0 Baso # (Auto) 0.1 Neutrophils % (Manual) 86 H Band Neutrophils % 6 H Lymphocytes % (Manual) 4 L Monocytes % (Manual) 4 Platelet Estimate Normal Anisocytosis (manual) Slight [place] Cells Slight PT 26.6 H INR 2.4 APTT 44 H Sodium Potassium Chloride Carbon Dioxide Anion Gap BUN Creatinine Est GFR ( Amer) Est GFR (Non-Af Amer) POC Glucose (mg/dL) 109 Random Glucose Lactic Acid Calcium Magnesium Total Bilirubin AST ALT Alkaline Phosphatase Total Protein Albumin Globulin Albumin/Globulin Ratio 09/21/18 09/21/18 13:56 14:58 WBC RBC Hgb Hct MCV MCH MCHC RDW Plt Count MPV Neut % (Auto) Lymph % (Auto) [place] % (Auto) Eos % (Auto) Baso % (Auto) Neut # (Auto) Lymph # (Auto) [place] # (Auto) Eos # (Auto) Baso # (Auto) Neutrophils % (Manual) Band Neutrophils % Lymphocytes % (Manual) Monocytes % (Manual) Platelet Estimate Anisocytosis (manual) [place] Cells PT INR APTT Sodium 135 Potassium 6.3 H* Chloride 108 H Carbon Dioxide 20 L Anion Gap 13 BUN 50 H Creatinine 1.2 Est GFR ( Amer) > 60 Est GFR (Non-Af Amer) 59 POC Glucose (mg/dL) Random Glucose 83 D Lactic Acid 2.1 Calcium 9.9 Magnesium 1.7 Total Bilirubin 0.8 AST 87 H D ALT 47 Alkaline Phosphatase 93 Total Protein 6.4 Albumin 3.1 L D Globulin 3.3 Albumin/Globulin Ratio 0.9 L Assessment & Plan (1) Atrial fibrillation Status: Acute (2) Failure to thrive in adult Status: Acute (3) Gangrene of left foot Status: Acute (4) Malnutrition Status: Acute (5) Abnormal TSH Status: Acute (6) Alcohol abuse Status: Acute (7) Atrial fibrillation with rapid ventricular response Status: Acute (8) Constipation Status: Acute (9) Electrolyte imbalance Status: Acute (10) Foot pain, left Status: Acute (11) Gangrene of toe Status: Acute (12) Gangrene of toe of left foot Status: Acute (13) History of CHF (congestive heart failure) Status: Acute (14) History of COPD Status: Acute (15) History of fall Status: Acute (16) Hypertension Status: Acute (17) Hypothyroidism Status: Acute (18) Pain of right heel Status: Acute (19) Pleural effusion Status: Acute (20) Pneumonia Status: Acute (21) Prophylactic measure Status: Acute (22) Prophylactic measure Status: Acute (23) Pulmonary embolism Status: Acute (24) Sepsis Status: Acute (25) Skin ulcer of toe of left foot with necrosis of muscle Status: Acute (26) UTI (urinary tract infection) Status: Acute (27) Vascular occlusion Status: Acute - Assessment and Plan (Free Text) Plan: ID consult Pulmonary consult Cardiology consult Vascular surgery consult Zosyn IV vancomycin Home medication reconciliation Workup for the peripheral vascular disease Pain medications Fingerstick ACH is Low-dose NovoLog Septic workup Wound care Pain management hold ldactone cbc cmp everyday kayexalte one dose
--- NOTE | 2018-09-21 17:51 | CP.PCM.PCO ---
Addendum Addendum: 09/21/18 17:48 78M seen and examined at bedside. Re-consult for peripheral vascular disease. Patient left food has dry gangrene up to the trans-metatarsal region. He currently denies pain. Patient makes his own decisions and is currently refusing any form or surgical intervention including an amputation which would be next s tep. Further recs discuss with Dr. Kel Camara, PGY3
[2018-09-21] MEDS: Piperacill/Tazo 3.375gm in Dex 3.375 GM/50 ML BAG IVPB SCH (17:52)
[2018-09-21] MEDS: Lactobacillus Acidophilus 500 MU Cap PO SCH (17:53)
[2018-09-21] MEDS: Enoxaparin 40 mg Syringe SC SCH (17:53)
--- NOTE | 2018-09-21 18:29 | CP.PCM.CON ---
History of Present Illness - History of Present Illness History of Present Illness: 78 year old male is sent to the ED from care home with complaints of pain to the left foot. Patient has a history of PVD Refused work up and refused amputation last visit both lower limbs weak and contracted no pulses palpable - Medical History PMH: Arthritis (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; BACK NECK), Atrial Fibrillation, CHF, COPD (emphysema (per CT/chest)), HTN, Hypothyroidism, Pulmonary Embolism Denies: Chronic Kidney Disease Other PMH: Peripheral Vascular Disease Surgical History: Back Surgery, Tonsillectomy - [facility] Procedures ASSISTANCE WITH RESPIRATORY VENTILATION, 24-96 HRS, CPAP (10/10/15) DRAINAGE OF LEFT PLEURAL CAVITY, PERCUTANEOUS APPROACH (03/17/16) DRAINAGE OF RIGHT PLEURAL CAVITY, PERCUTANEOUS APPROACH (03/17/16) INSERTION OF ENDOTRACHEAL AIRWAY INTO TRACHEA, VIA OPENING (03/17/16) INTRODUCTION OF SERUM/TOX/VACCINE INTO MUSCLE, PERC APPROACH (03/17/16) PERFORMANCE OF CARDIAC OUTPUT, SINGLE, MANUAL (03/17/16) RESPIRATORY VENTILATION, 24-96 CONSECUTIVE HOURS (03/17/16) Review of Systems - Review of Systems All systems: reviewed and no additional remarkable complaints except - Constitutional Constitutional: As Per HPI, Anorexia, Fever, Malaise - EENT Eyes: absent: As Per HPI, Blind Spots, Blurred Vision, Change in Vision, Decreased Night Vision, Diplopia, Discharge, Dry Eye, Exophthalmos, Floaters, Irritation, Itchy Eyes, Loss of Peripheral Vision, Pain, Photophobia, Requires Corrective Lenses, Sees Flashes, Spots in Vision, Tunnel Vision, Other Visual Disturbances, Loss of Vision, Other Ears: absent: As Per HPI, Decreased Hearing, Ear Discharge, Ear Pain, Tinnitus, Abnormal Hearing, Disequilibrium, Dizziness, Other Nose/Mouth/Throat: absent: As Per HPI, Epistaxis, Nasal Congestion, Nasal Discharge, Nasal Obstruction, Nasal Trauma, Nose Pain, Post Nasal Drip, Sinus Pain, Sinus Pressure, Bleeding Gums, Change in Voice, Dental Pain, Dry Mouth, D ysphagia, Halitosis, Hoarsness, Lip Swelling, Mouth Lesions, Mouth Pain, Odynophagia, Sore Throat, Throat Swelling, Tongue Swelling, Facial Pain, Neck Pain, Neck Mass, Other - Cardiovascular Cardiovascular: As Per HPI - Respiratory Respiratory: absent: As Per HPI, Cough, Dyspnea, Hemoptysis, Dyspnea on Exertion, Wheezing, Snoring, Stridor, Pain on Inspiration, Chest Congestion, Excessive Mucous Production, Change in Mucous Color, Pain with Coughing, Other - Gastrointestinal Gastrointestinal: absent: As Per HPI, Abdominal Pain, Belching, Bloating, Change in Bowel Habits, Change in Stool Character, Coffee Ground Emesis, Constipation, Cramping, Diarrhea, Dyspepsia, Dysphagia, Early Satiety, Excessive Flatus, Fecal Incontinence, Heartburn, Hematemesis, Hematochezia, Loose Stools, Melena, Nausea, Odynophagia, Temesmus, Vomiting, Other - Genitourinary Genitourinary: absent: As Per HPI, Change in Urinary Stream, Difficulty Urinating, Dysuria, Flank Pain, Hematuria, Pyuria, Nocturia, Urinary Incontinence, Urinary Frequency, Urinary Hesitance, Urinary Urgency, Voiding Freq/Small Amts, Freq UTI, Hx Renal/Bladder Calculi, Hx /Renal Surgery, Bladder Distension, Other - Musculoskeletal Musculoskeletal: As Per HPI - Integumentary Integumentary: As Per HPI, Skin Pain, Wounds - Neurological Neurological: absent: As Per HPI, Abnormal Gait, Abnormal Hearing, Abnormal Movements, Abnormal Speech, Behavioral Changes, Burning Sensations, Confusion, Convulsions, Disequilibrium, Dizziness, Numbness, Focal Weakness, Frequent Falls, Headaches, Lack of Coordination, Loss of Vision, Memory Loss, Paresthesias, Radicular Pain, Restless Legs, Sensory Deficit, Syncope, Tingling, Tremor, Vertigo, Weakness, Other Visual Disturbances, Other - Psychiatric Psychiatric: absent: As Per HPI, Abnormal Sleep Pattern, Anhedonia, Anxiety, Auditory Hallucinations, Behavioral Changes, Change in Appetite, Change in Libido, Confusion, Depression, Difficulty Concentrating, Hallucinations, Homicidal Ideation, Hopelessness, Irritability, Memory Loss, Mood Swings, Panic Attacks, Paranoia, Suicidal Ideation, Visual Hallucinations, Tactile Hallucinations, Other - Endocrine Endocrine: absent: As Per HPI, Change in Body Appearance, Change in Libido, Cold Intolorance, Deepening of Voice, Excessive Sweating, Fatigue, Flushing, Heat Intolorance, Increase in Ring/Shoe/Hat Size, Palpitations, Polydipsia, Polyphagia, Polyuria, Other - Hematologic/Lymphatic Hematologic: absent: As Per HPI, Easy Bleeding, Easy Bruising, Lymphadenopathy, Other Review of Systems - Review of Systems All systems: reviewed and no additional remarkable complaints except Past Patient History - Infectious Disease Hx of Infectious Diseases: None - Past Medical History & Family History Past Medical History?: Yes - Past Social History Smoking Status: Former Smoker - CARDIAC Hx Atrial Fibrillation: Yes Hx Congestive Heart Failure: Yes Hx Hypertension: Yes Hx Pacemaker: No - PULMONARY Hx Chronic Obstructive Pulmonary Disease (COPD): Yes (emphysema (per CT/chest)) Hx Pulmonary Embolism: Yes - NEUROLOGICAL Hx Neurological Disorder: No - HEENT Hx HEENT Problems: No - RENAL Hx Chronic Kidney Disease: No - ENDOCRINE/METABOLIC Hx Hypothyroidism: Yes - HEMATOLOGICAL/ONCOLOGICAL Hx Cancer: No - INTEGUMENTARY Hx Dermatological Problems: Yes Other/Comment: LEFT FOOT NECROSIS - MUSCULOSKELETAL/RHEUMATOLOGICAL Hx Arthritis: Yes (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; BACK NECK) - GASTROINTESTINAL Hx Gastrointestinal Disorders: Yes Hx Gastroesophageal Reflux: Yes - GENITOURINARY/GYNECOLOGICAL Hx Genitourinary Disorders: No - PSYCHIATRIC Hx Substance Use: No - SURGICAL HISTORY Hx Tonsillectomy: Yes - ANESTHESIA Hx Anesthesia: No Meds Allergies/Adverse Reactions: Allergies Allergy/AdvReac Type Severity Reaction Status Date / Time No Known Allergies Allergy Verified 09/21/18 13:01 - Medications Medications: Current Medications Albuterol/Ipratropium (Duoneb 3 Mg/0.5 Mg (3 Ml) Ud) 3 ml INH Q6 PRN PRN Reason: Shortness of Breath Docusate Sodium (Colace) 100 mg PO DAILY [facility] Enoxaparin Sodium (Lovenox) 40 mg SC DAILY [facility] Last Admin: 09/21/18 17:53 Dose: Not Given Famotidine (Pepcid) 20 mg PO DAILY [facility] Gabapentin (Neurontin) 100 mg PO BID [facility] Last Admin: 09/21/18 17:53 Dose: Not Given Piperacillin Sod/Tazobactam Sod (Zosyn 3.375 Gm Iv Premix) 3.375 gm in 50 mls @ 100 mls/hr IVPB Q6H [facility]; Protocol Last Admin: 09/21/18 17:52 Dose: Not Given Vancomycin HCl (Vancocin 750mg/Ns 150 Ml) 150 mls @ 133 mls/hr IV Q24H [facility] Stop: 09/27/18 10:01 Lactobacillus Acidophilus (Lactobacillus) 1 cap PO BID [facility] Last Admin: 09/21/18 17:53 Dose: Not Given Levothyroxine Sodium (Synthroid) 75 mcg PO DAILY@0630 [facility] Magnesium Hydroxide (Milk Of Magnesia) 30 ml PO HS PRN PRN Reason: No bowel movement after 3 days Multivitamins (Hexavitamin) 1 tab PO DAILY [facility] Oxycodone HCl (Oxycodone Immediate Release Tab) 10 mg PO Q4H PRN PRN Reason: Pain, moderate (4-7) Pantoprazole Sodium (Protonix Ec Tab) 40 mg PO DAILY [facility] Warfarin Sodium (Coumadin) 2 mg PO QPM [facility] Last Admin: 09/21/18 18:05 Dose: 2 mg Physical Exam - Constitutional Appears: Cachectic, Chronically Ill - Head Exam Head Exam: NORMOCEPHALIC - Eye Exam Eye Exam: absent: Scleral icterus - ENT Exam ENT Exam: Mucous Membranes Dry - Neck Exam Neck exam: Negative for: Lymphadenopathy - Respiratory Exam Respiratory Exam: Decreased Breath Sounds - Cardiovascular Exam Cardiovascular Exam: REGULAR RHYTHM - GI/Abdominal Exam GI & Abdominal Exam: Diminished Bowel Sounds, Soft - Rectal Exam Rectal Exam: Deferred - Exam Exam: NORMAL INSPECTION - Extremities Exam Extremities exam: Positive for: tenderness. Negative for: calf tenderness, full ROM, normal capillary refill, normal inspection, pedal pulses present Additional comments: necrotic changes both lower extremities - Back Exam Back exam: absent: CVA tenderness (L), CVA tenderness (R) - Neurological Exam Neurological exam: Alert, CN II-XII Intact - Psychiatric Exam Psychiatric exam: Depressed Results - Vital Signs Recent Vital Signs: Last Vital Signs Temp 97.1 F L 09/21/18 17:05 Pulse 117 H 09/21/18 17:05 Resp 20 09/21/18 17:05 BP 118/64 09/21/18 17:05 Pulse Ox 95 09/21/18 17:05 - Labs Result Diagrams: 09/22/18 07:11 09/22/18 07:11 Labs: Laboratory Results - last 24 hr 09/21/18 09/21/18 09/21/18 12:49 13:47 13:47 WBC 12.5 H D RBC 3.92 L Hgb 11.4 L Hct 35.9 MCV 91.4 MCH 29.1 MCHC 31.8 L RDW 15.8 H Plt Count 219 D MPV 8.8 Neut % (Auto) 90.3 H Lymph % (Auto) 5.3 L [place] % (Auto) 3.7 Eos % (Auto) 0.1 Baso % (Auto) 0.6 Neut # (Auto) 11.3 H Lymph # (Auto) 0.7 L [place] # (Auto) 0.5 Eos # (Auto) 0.0 Baso # (Auto) 0.1 Neutrophils % (Manual) 86 H Band Neutrophils % 6 H Lymphocytes % (Manual) 4 L Monocytes % (Manual) 4 Platelet Estimate Normal Anisocytosis (manual) Slight [place] Cells Slight PT 26.6 H INR 2.4 APTT 44 H Sodium Potassium Chloride Carbon Dioxide Anion Gap BUN Creatinine Est GFR ( Amer) Est GFR (Non-Af Amer) POC Glucose (mg/dL) 109 Random Glucose Lactic Acid Calcium Magnesium Total Bilirubin AST ALT Alkaline Phosphatase Total Protein Albumin Globulin Albumin/Globulin Ratio 09/21/18 09/21/18 09/21/18 13:56 14:58 16:56 WBC RBC Hgb Hct MCV MCH MCHC RDW Plt Count MPV Neut % (Auto) Lymph % (Auto) [place] % (Auto) Eos % (Auto) Baso % (Auto) Neut # (Auto) Lymph # (Auto) [place] # (Auto) Eos # (Auto) Baso # (Auto) Neutrophils % (Manual) Band Neutrophils % Lymphocytes % (Manual) Monocytes % (Manual) Platelet Estimate Anisocytosis (manual) [place] Cells PT INR APTT Sodium 135 Potassium 6.3 H* 5.5 H Chloride 108 H Carbon Dioxide 20 L Anion Gap 13 BUN 50 H Creatinine 1.2 Est GFR ( Amer) > 60 Est GFR (Non-Af Amer) 59 POC Glucose (mg/dL) Random Glucose 83 D Lactic Acid 2.1 Calcium 9.9 Magnesium 1.7 Total Bilirubin 0.8 AST 87 H D ALT 47 Alkaline Phosphatase 93 Total Protein 6.4 Albumin 3.1 L D Globulin 3.3 Albumin/Globulin Ratio 0.9 L Assessment & Plan (1) Atrial fibrillation Status: Acute (2) Failure to thrive in adult Status: Acute (3) Gangrene of left foot Status: Acute - Assessment and Plan (Free Text) Assessment: cont empiric IV rx poor prognosis
[2018-09-21] MEDS ORDERED: Sod Polystyrene Sulf 15 gm/60 ml Susp PO ONE (18:45)
--- NOTE | 2018-09-21 19:22 | CP.PCM.PN ---
Subjective - Date & Time of Evaluation Date of Evaluation: 09/21/18 Time of Evaluation: 11:00 - Subjective Subjective: clinically same Objective - Vital Signs/Intake and Output Vital Signs (last 24 hours): Temp Pulse Resp BP Pulse Ox 97.1 F L 117 H 20 118/64 95 09/21/18 17:05 09/21/18 17:05 09/21/18 17:05 09/21/18 17:05 09/21/18 17:05 - Medications Medications: Current Medications Albuterol/Ipratropium (Duoneb 3 Mg/0.5 Mg (3 Ml) Ud) 3 ml INH Q6 PRN PRN Reason: Shortness of Breath Docusate Sodium (Colace) 100 mg PO DAILY [facility] Enoxaparin Sodium (Lovenox) 40 mg SC DAILY [facility] Last Admin: 09/21/18 17:53 Dose: Not Given Famotidine (Pepcid) 20 mg PO DAILY [facility] Gabapentin (Neurontin) 100 mg PO BID [facility] Last Admin: 09/21/18 17:53 Dose: Not Given Piperacillin Sod/Tazobactam Sod (Zosyn 3.375 Gm Iv Premix) 3.375 gm in 50 mls @ 100 mls/hr IVPB Q6H [facility]; Protocol Last Admin: 09/21/18 17:52 Dose: Not Given Vancomycin HCl (Vancocin 750mg/Ns 150 Ml) 150 mls @ 133 mls/hr IV Q24H [facility] Stop: 09/27/18 10:01 Lactobacillus Acidophilus (Lactobacillus) 1 cap PO BID [facility] Last Admin: 09/21/18 17:53 Dose: Not Given Levothyroxine Sodium (Synthroid) 75 mcg PO DAILY@0630 [facility] Magnesium Hydroxide (Milk Of Magnesia) 30 ml PO HS PRN PRN Reason: No bowel movement after 3 days Multivitamins (Hexavitamin) 1 tab PO DAILY [facility] Oxycodone HCl (Oxycodone Immediate Release Tab) 10 mg PO Q4H PRN PRN Reason: Pain, moderate (4-7) Pantoprazole Sodium (Protonix Ec Tab) 40 mg PO DAILY [facility] Warfarin Sodium (Coumadin) 2 mg PO QPM [facility] Last Admin: 09/21/18 18:05 Dose: 2 mg - Labs Labs: 09/21/18 13:47 09/21/18 16:56 PT 26.6 SECONDS (9.7-12.2) H 09/21/18 13:47 INR 2.4 09/21/18 13:47 APTT 44 SECONDS (21-34) H 09/21/18 13:47 - Constitutional Appears: Well - Head Exam Head Exam: ATRAUMATIC, NORMAL INSPECTION, NORMOCEPHALIC - Eye Exam Eye Exam: EOMI, Normal appearance, PERRL Pupil Exam: NORMAL ACCOMODATION, PERRL - ENT Exam ENT Exam: Mucous Membranes Moist, Normal Exam - Neck Exam Neck Exam: Full ROM, Normal Inspection. absent: Lymphadenopathy - Respiratory Exam Respiratory Exam: Decreased Breath Sounds - Cardiovascular Exam Cardiovascular Exam: REGULAR RHYTHM, +S1, +S2 - GI/Abdominal Exam GI & Abdominal Exam: Soft, Diminished Bowel Sounds - Rectal Exam Rectal Exam: Deferred Assessment and Plan (1) Atrial fibrillation Status: Acute (2) Failure to thrive in adult Status: Acute (3) Gangrene of left foot Status: Acute (4) Malnutrition Status: Acute (5) Abnormal TSH Status: Acute (6) Alcohol abuse Status: Acute (7) Atrial fibrillation with rapid ventricular response Status: Acute (8) Constipation Status: Acute (9) Electrolyte imbalance Status: Acute (10) Foot pain, left Status: Acute (11) Gangrene of toe Status: Acute (12) Gangrene of toe of left foot Status: Acute (13) History of CHF (congestive heart failure) Status: Acute (14) History of COPD Status: Acute (15) History of fall Status: Acute (16) Hypertension Status: Acute (17) Hypothyroidism Status: Acute (18) Pain of right heel Status: Acute (19) Pleural effusion Status: Acute (20) Pneumonia Status: Acute (21) Prophylactic measure Status: Acute (22) Prophylactic measure Status: Acute (23) Pulmonary embolism Status: Acute (24) Sepsis Status: Acute (25) Skin ulcer of toe of left foot with necrosis of muscle Status: Acute (26) UTI (urinary tract infection) Status: Acute (27) Vascular occlusion Status: Acute
[2018-09-21] MEDS: oxyCODONE 10 mg Immediate Release Tab PO PRN (23:38)
[2018-09-22] MEDS: Piperacill/Tazo 3.375gm in Dex 3.375 GM/50 ML BAG IVPB SCH ×4 (00:22→19:16)
[2018-09-22] MEDS: Levothyroxine 75 MCG TAB PO SCH (06:05)
[2018-09-22 07:20] LABS: BASO % 0.5 % (0.0-2.0); HEMOGLOBIN 10.1 g/dL (12.0-18.0); LYMPH # 0.4 K/uL (1.0-4.3); LYMPH % 4.2 % (20.0-40.0); MEAN CELL VOLUME 91.6 fL (80.0-94.0); MEAN CORPUSCULAR HEMOGLOBIN 29.7 pg (27.0-31.0); MEAN CORPUSCULAR HGB CONC 32.4 g/dL (33.0-37.0); MEAN PLATELET VOLUME 8.8 fL (7.2-11.7); MONO # 0.5 K/uL (0.0-0.8); MONO % 4.7 % (0.0-10.0); NEUT # 9.5 K/uL (1.8-7.0); NEUT % 90.6 % (50.0-75.0); NRBC % 0.3 % (0.0-2.0); PLATELET COUNT 200 K/uL (130-400); RBC 3.42 Mil/uL (4.40-5.90); RED CELL DISTRIBUTION WIDTH 16.2 % (11.5-14.5); WHITE BLOOD COUNT 10.5 K/uL (4.8-10.8)
[2018-09-22 07:43] LABS: ALB/GLOB RATIO 0.9 (1.0-2.1); ALBUMIN 2.8 g/dL (3.5-5.0); ALT/SGPT 56 U/L (21-72); AST/SGOT 143 U/L (17-59); BLOOD UREA NITROGEN 43 mg/dL (9-20); CALCIUM 9.9 mg/dl (8.6-10.4); GFR NON-AFRICAN AMERICAN 59
[2018-09-22 07:44] LABS: INR 3.4
[2018-09-22 09:39] LABS: ANISOCYTOSIS SLIGHT; BANDS 1 % (0-2); HYPOCHROMIC SLIGHT; LYMPHOCYTE 4 % (20-40); MONOCYTE 5 % (0-10); MYELOCYTE 1 % (0-0); NEUTROPHIL 89 % (50-75); NUCLEATED RED BLOOD CELL 1 % (0-0); PLATELET ESTIMATE NORMAL (NORMAL); POIKILOCYTOSIS SLIGHT; TOTAL CELLS COUNTED 100
[2018-09-22 09:40] LABS: BURR CELLS SLIGHT; TARGET CELLS SLIGHT
[2018-09-22] MEDS ORDERED: VANCOMYCIN IVPB SCH (10:00)
[2018-09-22] MEDS ORDERED: NS IVPB SCH (10:00)
[2018-09-22] MEDS ORDERED: Vancomycin 750mg/NS 150 ml 150 ML IV SCH (10:00)
[2018-09-22] MEDS: Pantoprazole 40 mg EC Tab PO SCH (12:36)
[2018-09-22] MEDS: Lactobacillus Acidophilus 500 MU Cap PO SCH ×2 (12:36→19:14)
[2018-09-22] MEDS: Multiple Vitamins Tab PO SCH (12:37)
[2018-09-22] MEDS: Enoxaparin 40 mg Syringe SC SCH (12:38)
[2018-09-22] MEDS: oxyCODONE 10 mg Immediate Release Tab PO PRN ×2 (12:41→22:56)
[2018-09-22] MEDS ORDERED: Sod Polystyrene Sulf 15 gm/60 ml Susp PO ONE (15:00)
--- NOTE | 2018-09-22 15:24 | CARD ---
APPROVED REPORT Date of service: 09/21/2018 EKG Measurement Heart [id number] <Conclusion> Atrial fibrillation with rapid ventricular response Cannot rule out Anterior infarct, age undetermined Abnormal ECG
--- NOTE | 2018-09-22 16:16 | CP.PCM.CON ---
History of Present Illness - History of Present Illness History of Present Illness: Maribell Washington, PGY-1, Cardiology Consult Note for Dr. Corea 78 year old male with past medical history of Arthritis, Afib, CHF, COPD, HTN, Hypothyroidism, PE, PVD, Schizophrenia presents with left foot pain and decreased appetite for one week. Most of this history was obtained from prior notes as patient is currently AAOx1 and confused. Patient is unable to communicate effectively at this time. Upon presentation, according to ER note, patient reported left foot pain and decreased appetite. [place] [address] [facility]. Patient was complaining of pain and redness of left lower extremity earlier, however, patient is unable to communicate ineffectively at this time. Patient was admitted for failure to thrive. 12-point ROS was unat tainable due to patient's mental status. PMH: Arthritis, Afib, CHF, COPD, HTN, Hypothyroidism, PE, PVD, Schizophrenia PSH: Back Surgery, Tonsillectomy Allergies: NKDA SHx: According to brother, the patient used to drink and sleep on streets Review of Systems - Review of Systems Systems not reviewed;Unavailable: Altered Mental Status Past Patient History - Infectious Disease Hx of Infectious Diseases: None - Past Medical History & Family History Past Medical History?: Yes - Past Social History Smoking Status: Light Smoker < 10 Cigarettes Daily - CARDIAC Hx Cardiac Disorders: Yes Hx Atrial Fibrillation: Yes Hx Congestive Heart Failure: Yes Hx Hypertension: Yes Hx Pacemaker: No - PULMONARY Hx Respiratory Disorders: Yes Hx Chronic Obstructive Pulmonary Disease (COPD): Yes (emphysema (per CT/chest)) Hx Pulmonary Embolism: Yes - NEUROLOGICAL Hx Neurological Disorder: No Hx Dementia: Yes - HEENT Hx HEENT Problems: No - RENAL Hx Chronic Kidney Disease: No - ENDOCRINE/METABOLIC Hx Endocrine Disorders: Yes Hx Hypothyroidism: Yes - HEMATOLOGICAL/ONCOLOGICAL Hx Blood Disorders: No Hx Cancer: No - INTEGUMENTARY Hx Dermatological Problems: Yes Other/Comment: LEFT FOOT NECROSIS - MUSCULOSKELETAL/RHEUMATOLOGICAL Hx Musculoskeletal Disorders: Yes Hx Arthritis: Yes (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; BACK NECK) Hx Falls: No - GASTROINTESTINAL Hx Gastrointestinal Disorders: Yes Hx Gastroesophageal Reflux: Yes - GENITOURINARY/GYNECOLOGICAL Hx Genitourinary Disorders: No - PSYCHIATRIC Hx Substance Use: No - SURGICAL HISTORY Hx Tonsillectomy: Yes - ANESTHESIA Hx Anesthesia: No Meds Allergies/Adverse Reactions: Allergies Allergy/AdvReac Type Severity Reaction Status Date / Time No Known Allergies Allergy Verified 09/21/18 13:01 - Medications Medications: Current Medications Albuterol/Ipratropium (Duoneb 3 Mg/0.5 Mg (3 Ml) Ud) 3 ml INH Q6 PRN PRN Reason: Shortness of Breath Docusate Sodium (Colace) 100 mg PO DAILY [facility] Last Admin: 09/22/18 12:40 Dose: 100 mg Enoxaparin Sodium (Lovenox) 40 mg SC DAILY [facility] Last Admin: 09/22/18 12:38 Dose: Not Given Famotidine (Pepcid) 20 mg PO DAILY [facility] Last Admin: 09/22/18 12:37 Dose: 20 mg Gabapentin (Neurontin) 100 mg PO BID [facility] Last Admin: 09/22/18 12:37 Dose: 100 mg Piperacillin Sod/Tazobactam Sod (Zosyn 3.375 Gm Iv Premix) 3.375 gm in 50 mls @ 100 mls/hr IVPB Q6H [facility]; Protocol Last Admin: 09/22/18 13:09 Dose: 100 mls/hr Vancomycin HCl 750 mg/ Sodium (Chloride) 250 mls @ 166.667 mls/hr IVPB Q24H [facility] Stop: 10/12/18 14:29 Last Admin: 09/22/18 13:02 Dose: 166.667 mls/hr Lactobacillus Acidophilus (Lactobacillus) 1 cap PO BID [facility] Last Admin: 09/22/18 12:36 Dose: 1 cap Levothyroxine Sodium (Synthroid) 75 mcg PO DAILY@0630 [facility] Last Admin: 09/22/18 06:05 Dose: 75 mcg Magnesium Hydroxide (Milk Of Magnesia) 30 ml PO HS PRN PRN Reason: No bowel movement after 3 days Multivitamins (Hexavitamin) 1 tab PO DAILY [facility] Last Admin: 09/22/18 12:37 Dose: 1 tab Oxycodone HCl (Oxycodone Immediate Release Tab) 10 mg PO Q4H PRN PRN Reason: Pain, moderate (4-7) Last Admin: 09/22/18 12:41 Dose: 10 mg Pantoprazole Sodium (Protonix Ec Tab) 40 mg PO DAILY [facility] Last Admin: 09/22/18 12:36 Dose: 40 mg Warfarin Sodium (Coumadin) 2 mg PO QPM [facility] Last Admin: 09/21/18 18:05 Dose: 2 mg Physical Exam - Constitutional Appears: Non-toxic, Agitated, Confused, Cachectic - Head Exam Head Exam: ATRAUMATIC, NORMAL INSPECTION, NORMOCEPHALIC - Eye Exam Eye Exam: EOMI, PERRL - ENT Exam ENT Exam: Mucous Membranes Dry - Respiratory Exam Respiratory Exam: Clear to Auscultation Bilateral, NORMAL BREATHING PATTERN - Cardiovascular Exam Cardiovascular Exam: Tachycardia, Irregular Rhythm - GI/Abdominal Exam GI & Abdominal Exam: Normal Bowel Sounds, Soft. absent: Tenderness - Extremities Exam Additional comments: left lower extremity was reddened with absent pulses and cool extremity. Right lower extremity had 2nd metatarsal reddened. Faint pulse was present, but lower extremity was cool as well. - Neurological Exam Neurological exam: Alert (AAOx1), CN II-XII Intact (grossly) - Skin Skin Exam: Pallor Additional comments: left lower extremity was reddened with absent pulses and cool extremity. Right lower extremity had 2nd metatarsal reddened. Faint pulse was present, but lower extremity was cool as well. Results - Vital Signs Recent Vital Signs: Last Vital Signs Temp 98.0 F 09/22/18 09:22 Pulse 100 H 09/22/18 09:22 Resp 20 09/22/18 09:22 BP 119/74 09/22/18 09:22 Pulse Ox 96 09/22/18 09:22 - Labs Result Diagrams: 09/22/18 07:11 09/22/18 07:11 Labs: Laboratory Results - last 24 hr 09/21/18 09/21/18 09/22/18 16:56 21:31 06:25 WBC RBC Hgb Hct MCV MCH MCHC RDW Plt Count MPV Neut % (Auto) Lymph % (Auto) Dade % (Auto) Eos % (Auto) Baso % (Auto) Neut # (Auto) Lymph # (Auto) Dade # (Auto) Eos # (Auto) Baso # (Auto) Neutrophils % (Manual) Band Neutrophils % Lymphocytes % (Manual) Monocytes % (Manual) Myelocytes % Nucleated RBC % Platelet Estimate Hypochromasia (manual) Poikilocytosis (manual Anisocytosis (manual) Target Cells Allison Cells PT INR Sodium Potassium 5.5 H Chloride Carbon Dioxide Anion Gap BUN Creatinine Est GFR ( Amer) Est GFR (Non-Af Amer) POC Glucose (mg/dL) 145 H 90 Random Glucose Calcium Phosphorus Magnesium Total Bilirubin AST ALT Alkaline Phosphatase Total Protein Albumin Globulin Albumin/Globulin Ratio 09/22/18 09/22/18 09/22/18 07:11 07:11 07:11 WBC 10.5 RBC 3.42 L Hgb 10.1 L Hct 31.3 L MCV 91.6 MCH 29.7 MCHC 32.4 L RDW 16.2 H Plt Count 200 MPV 8.8 Neut % (Auto) 90.6 H Lymph % (Auto) 4.2 L Dade % (Auto) 4.7 Eos % (Auto) 0.0 Baso % (Auto) 0.5 Neut # (Auto) 9.5 H Lymph # (Auto) 0.4 L Dade # (Auto) 0.5 Eos # (Auto) 0.0 Baso # (Auto) 0.0 Neutrophils % (Manual) 89 H Band Neutrophils % 1 Lymphocytes % (Manual) 4 L Monocytes % (Manual) 5 Myelocytes % 1 H Nucleated RBC % 1 H Platelet Estimate Normal Hypochromasia (manual) Slight Poikilocytosis (manual Slight Anisocytosis (manual) Slight Target Cells Slight Allison Cells Slight PT 37.0 H D INR 3.4 H* D Sodium 136 Potassium 5.8 H Chloride 107 Carbon Dioxide 16 L Anion Gap 19 BUN 43 H Creatinine 1.2 Est GFR ( Amer) > 60 Est GFR (Non-Af Amer) 59 POC Glucose (mg/dL) Random Glucose 92 Calcium 9.9 Phosphorus 3.1 Magnesium 1.6 Total Bilirubin 1.1 AST 143 H D ALT 56 Alkaline Phosphatase 100 Total Protein 6.1 L Albumin 2.8 L Globulin 3.3 Albumin/Globulin Ratio 0.9 L Assessment & Plan - Assessment and Plan (Free Text) Assessment: PAD with gangrene Atrial fibrillation Congestive heart failure Hypertension Hypothyroidism History of pulmonary embolism Plan: PAD with gangrene Atrial fibrillation on coumadin Congestive heart failure Hypertension Hypothyroidism History of pulmonary embolism Last angiogram in 08/2018 showed left lower extremity with moderate calcific adilene que in the aorta, moderate stenosis of the proximal left common iliac artery with severe calcific plaque of the common iliac artery on the right. There is moderate stenosis of right external iliax and right common iliac artery. Left lower extreimty showed severe calcific plaque of the common femoral artery with severe stenosis, occlusion of the left SFA with reconstituted popliteal artery, severe calcification throughout the SFA, moderate stenosis of the popliteal artery. EKG: shows atrial fibrillation with RVR with HR: 114 CXR: no efffusions appreciated INR: 3.4 Will start lopressor 25 mg BID for rate control for atrial fibrillation. Hold warfarin as INR is supratherapeutic. Goal should be 2-3. Last echocardiogram in 2015 shows LVEF of 10-15%. Will repeat echocardiogram and follow up cardiac function. In addition, will start lopressor. Will hold off on starting ACEI or ARB due to blood pressure at this time. As per surgery note, patient is refusing any intervention for PAD of bilateral lower extremities. Will likely need social work to evaluate patient's ability to make decisions. Consider CTA of bilateral lower extremities if amenable. Medications: Synthyroid 75 mcg daily Vancomycin Zosyn Warfarin held due to supratherapeutic INR Lopressor 25 mg BID - Date & Time Date: 09/22/18 Time: 16:21
--- NOTE | 2018-09-22 19:22 | CP.PCM.PN ---
Subjective - Date & Time of Evaluation Date of Evaluation: 09/22/18 Time of Evaluation: 08:00 - Subjective Subjective: IV rx in progress denies fever weak and bedridden left foot ischemic right toes dark as well no pulses palpable Objective - Vital Signs/Intake and Output Vital Signs (last 24 hours): Temp Pulse Resp BP Pulse Ox 97.6 F 108 H 21 124/63 93 L 09/22/18 16:00 09/22/18 16:00 09/22/18 16:00 09/22/18 19:15 09/22/18 16:00 - Medications Medications: Current Medications Albuterol/Ipratropium (Duoneb 3 Mg/0.5 Mg (3 Ml) Ud) 3 ml INH Q6 PRN PRN Reason: Shortness of Breath Docusate Sodium (Colace) 100 mg PO DAILY [facility] Last Admin: 09/22/18 12:40 Dose: 100 mg Enoxaparin Sodium (Lovenox) 40 mg SC DAILY [facility] Last Admin: 09/22/18 12:38 Dose: Not Given Famotidine (Pepcid) 20 mg PO DAILY [facility] Last Admin: 09/22/18 12:37 Dose: 20 mg Gabapentin (Neurontin) 100 mg PO BID [facility] Last Admin: 09/22/18 19:15 Dose: 100 mg Piperacillin Sod/Tazobactam Sod (Zosyn 3.375 Gm Iv Premix) 3.375 gm in 50 mls @ 100 mls/hr IVPB Q6H [facility]; Protocol Last Admin: 09/22/18 19:16 Dose: 100 mls/hr Vancomycin HCl 750 mg/ Sodium (Chloride) 250 mls @ 166.667 mls/hr IVPB Q24H [facility] Stop: 10/12/18 14:29 Last Admin: 09/22/18 13:02 Dose: 166.667 mls/hr Lactobacillus Acidophilus (Lactobacillus) 1 cap PO BID [facility] Last Admin: 09/22/18 19:14 Dose: 1 cap Levothyroxine Sodium (Synthroid) 75 mcg PO DAILY@0630 [facility] Last Admin: 09/22/18 06:05 Dose: 75 mcg Magnesium Hydroxide (Milk Of Magnesia) 30 ml PO HS PRN PRN Reason: No bowel movement after 3 days Metoprolol Tartrate (Lopressor) 25 mg PO BID [facility] Last Admin: 09/22/18 19:15 Dose: 25 mg Multivitamins (Hexavitamin) 1 tab PO DAILY [facility] Last Admin: 09/22/18 12:37 Dose: 1 tab Oxycodone HCl (Oxycodone Immediate Release Tab) 10 mg PO Q4H PRN PRN Reason: Pain, moderate (4-7) Last Admin: 09/22/18 12:41 Dose: 10 mg Pantoprazole Sodium (Protonix Ec Tab) 40 mg PO DAILY [facility] Last Admin: 09/22/18 12:36 Dose: 40 mg Warfarin Sodium (Coumadin) 2 mg PO QPM [facility] Last Admin: 09/21/18 18:05 Dose: 2 mg - Labs Labs: 09/22/18 07:11 09/22/18 07:11 PT 37.0 SECONDS (9.7-12.2) H D 09/22/18 07:11 INR 3.4 H* D 09/22/18 07:11 APTT 44 SECONDS (21-34) H 09/21/18 13:47 - Constitutional Appears: Cachectic, Chronically Ill - Head Exam Head Exam: NORMOCEPHALIC - Eye Exam Eye Exam: absent: Scleral icterus - ENT Exam ENT Exam: Mucous Membranes Dry - Neck Exam Neck Exam: absent: Lymphadenopathy - Respiratory Exam Respiratory Exam: Decreased Breath Sounds - Cardiovascular Exam Cardiovascular Exam: REGULAR RHYTHM, +S1, +S2 - GI/Abdominal Exam GI & Abdominal Exam: Distended, Soft - Rectal Exam Rectal Exam: Deferred - Exam Exam: NORMAL INSPECTION - Extremities Exam Extremities Exam: absent: Pedal Edema - Back Exam Back Exam: absent: CVA tenderness (L), CVA tenderness (R) - Neurological Exam Neurological Exam: Alert, Awake, CN II-XII Intact - Psychiatric Exam Psychiatric exam: Depressed - Skin Additional comments: gangrene left foot right foot digits dusky Assessment and Plan (1) Atrial fibrillation Status: Acute (2) Failure to thrive in adult Status: Acute (3) Gangrene of left foot Status: Acute - Assessment and Plan (Free Text) Assessment: gangrene severe PVD refused intervention last admission cont empiric IV rx for SSTI
--- NOTE | 2018-09-22 19:55 | CP.PCM.PN ---
Subjective - Date & Time of Evaluation Date of Evaluation: 09/22/18 Time of Evaluation: 10:30 - Subjective Subjective: clinically same Objective - Vital Signs/Intake and Output Vital Signs (last 24 hours): Temp Pulse Resp BP Pulse Ox 97.6 F 108 H 21 124/63 93 L 09/22/18 16:00 09/22/18 16:00 09/22/18 16:00 09/22/18 19:15 09/22/18 16:00 - Medications Medications: Current Medications Albuterol/Ipratropium (Duoneb 3 Mg/0.5 Mg (3 Ml) Ud) 3 ml INH Q6 PRN PRN Reason: Shortness of Breath Docusate Sodium (Colace) 100 mg PO DAILY [facility] Last Admin: 09/22/18 12:40 Dose: 100 mg Enoxaparin Sodium (Lovenox) 40 mg SC DAILY [facility] Last Admin: 09/22/18 12:38 Dose: Not Given Famotidine (Pepcid) 20 mg PO DAILY [facility] Last Admin: 09/22/18 12:37 Dose: 20 mg Gabapentin (Neurontin) 100 mg PO BID [facility] Last Admin: 09/22/18 19:15 Dose: 100 mg Piperacillin Sod/Tazobactam Sod (Zosyn 3.375 Gm Iv Premix) 3.375 gm in 50 mls @ 100 mls/hr IVPB Q6H [facility]; Protocol Last Admin: 09/22/18 19:16 Dose: 100 mls/hr Vancomycin HCl 750 mg/ Sodium (Chloride) 250 mls @ 166.667 mls/hr IVPB Q24H [facility] Stop: 10/12/18 14:29 Last Admin: 09/22/18 13:02 Dose: 166.667 mls/hr Lactobacillus Acidophilus (Lactobacillus) 1 cap PO BID [facility] Last Admin: 09/22/18 19:14 Dose: 1 cap Levothyroxine Sodium (Synthroid) 75 mcg PO DAILY@0630 [facility] Last Admin: 09/22/18 06:05 Dose: 75 mcg Magnesium Hydroxide (Milk Of Magnesia) 30 ml PO HS PRN PRN Reason: No bowel movement after 3 days Metoprolol Tartrate (Lopressor) 25 mg PO BID [facility] Last Admin: 09/22/18 19:15 Dose: 25 mg Multivitamins (Hexavitamin) 1 tab PO DAILY [facility] Last Admin: 09/22/18 12:37 Dose: 1 tab Oxycodone HCl (Oxycodone Immediate Release Tab) 10 mg PO Q4H PRN PRN Reason: Pain, moderate (4-7) Last Admin: 09/22/18 12:41 Dose: 10 mg Pantoprazole Sodium (Protonix Ec Tab) 40 mg PO DAILY [facility] Last Admin: 09/22/18 12:36 Dose: 40 mg Warfarin Sodium (Coumadin) 2 mg PO QPM [facility] Last Admin: 09/21/18 18:05 Dose: 2 mg - Labs Labs: 09/22/18 07:11 09/22/18 07:11 PT 37.0 SECONDS (9.7-12.2) H D 09/22/18 07:11 INR 3.4 H* D 09/22/18 07:11 APTT 44 SECONDS (21-34) H 09/21/18 13:47 - Constitutional Appears: Well - Head Exam Head Exam: ATRAUMATIC, NORMAL INSPECTION, NORMOCEPHALIC - Eye Exam Eye Exam: EOMI, Normal appearance, PERRL Pupil Exam: NORMAL ACCOMODATION, PERRL - ENT Exam ENT Exam: Mucous Membranes Moist, Normal Exam - Neck Exam Neck Exam: Full ROM, Normal Inspection. absent: Lymphadenopathy - Respiratory Exam Respiratory Exam: Decreased Breath Sounds - Cardiovascular Exam Cardiovascular Exam: REGULAR RHYTHM, +S1, +S2 - GI/Abdominal Exam GI & Abdominal Exam: Diminished Bowel Sounds, Hyperactive Bowel Sounds - Rectal Exam Rectal Exam: Deferred Assessment and Plan (1) Atrial fibrillation Status: Acute (2) Failure to thrive in adult Status: Acute (3) Gangrene of left foot Status: Acute (4) Malnutrition Status: Acute (5) Abnormal TSH Status: Acute (6) Alcohol abuse Status: Acute (7) Atrial fibrillation with rapid ventricular response Status: Acute (8) Constipation Status: Acute (9) Electrolyte imbalance Status: Acute (10) Foot pain, left Status: Acute (11) Gangrene of toe Status: Acute (12) Gangrene of toe of left foot Status: Acute (13) History of CHF (congestive heart failure) Status: Acute (14) History of COPD Status: Acute (15) History of fall Status: Acute (16) Hypertension Status: Acute (17) Hypothyroidism Status: Acute (18) Pain of right heel Status: Acute (19) Pleural effusion Status: Acute (20) Pneumonia Status: Acute (21) Prophylactic measure Status: Acute (22) Prophylactic measure Status: Acute (23) Pulmonary embolism Status: Acute (24) Sepsis Status: Acute (25) Skin ulcer of toe of left foot with necrosis of muscle Status: Acute (26) UTI (urinary tract infection) Status: Acute (27) Vascular occlusion Status: Acute
[2018-09-23] MEDS: Piperacill/Tazo 3.375gm in Dex 3.375 GM/50 ML BAG IVPB SCH ×3 (00:10→14:28)
[2018-09-23 01:25] VITALS: O2SAT 96
[2018-09-23] MEDS: Levothyroxine 75 MCG TAB PO SCH (06:23)
[2018-09-23 07:09] LABS: BASO % 0.2 % (0.0-2.0); EOS % 0.1 % (0.0-4.0); HEMOGLOBIN 10.3 g/dL (12.0-18.0); LYMPH # 0.8 K/uL (1.0-4.3); LYMPH % 5.9 % (20.0-40.0); MEAN CELL VOLUME 91.8 fL (80.0-94.0); MEAN CORPUSCULAR HEMOGLOBIN 28.9 pg (27.0-31.0); MEAN CORPUSCULAR HGB CONC 31.5 g/dL (33.0-37.0); MEAN PLATELET VOLUME 9.1 fL (7.2-11.7); MONO # 0.9 K/uL (0.0-0.8); MONO % 6.5 % (0.0-10.0); NEUT # 11.5 K/uL (1.8-7.0); NEUT % 87.3 % (50.0-75.0); NRBC % 0.6 % (0.0-2.0); PLATELET COUNT 153 K/uL (130-400); RBC 3.57 Mil/uL (4.40-5.90); RED CELL DISTRIBUTION WIDTH 16.3 % (11.5-14.5); WHITE BLOOD COUNT 13.1 K/uL (4.8-10.8)
[2018-09-23] MEDS ORDERED: Sodium Chloride 0.9% 1,000 ML IV ONE (07:17)
[2018-09-23 08:08] VITALS: RESP 18; TEMP 97.6
[2018-09-23 08:22] LABS: ALBUMIN 3.1 g/dL (3.5-5.0); BILIRUBIN,DIRECT 1.1 mg/dL (0.0-0.4); CALCIUM 9.7 mg/dl (8.6-10.4)
[2018-09-23] MEDS ORDERED: (Novolin R) Insulin Human Regular 100 units/ml vial IVP ONE (08:24)
[2018-09-23] MEDS ORDERED: Dextrose 50% SYRINGE Inj (50 ml) IV ONE (08:45)
[2018-09-23 08:49] LABS: PLATELET ESTIMATE NORMAL (NORMAL); TOTAL CELLS COUNTED 100
[2018-09-23 08:50] LABS: ANISOCYTOSIS SLIGHT; BURR CELLS SLIGHT; HYPOCHROMIC SLIGHT; LYMPHOCYTE 6 % (20-40); MONOCYTE 5 % (0-10); NEUTROPHIL 89 % (50-75); POIKILOCYTOSIS SLIGHT; TARGET CELLS SLIGHT
[2018-09-23] MEDS ORDERED: Calcium Gluconate 4.65 mEq/10 ml Inj IVP ONE (09:18)
[2018-09-23] MEDS ORDERED: Sodium Bicarbonate (8.4%) 50 Meq Syringe IVP ONE (09:29)
[2018-09-23] MEDS ORDERED: Sodium Bicarbonate (8.4%) 50 Meq Syringe ONE (09:30)
[2018-09-23] MEDS ORDERED: Calcium Gluconate 4.65 mEq/10 ml Inj ONE (09:30)
--- NOTE | 2018-09-23 09:36 | PCM.RRT ---
DIRECTOR OF SALES Nurses Assessment - Situation Date: 09/23/18 Time DIRECTOR OF SALES was called: 09:25 DIRECTOR OF SALES Responder Arrival Time:: :26 Room Number: 656B DIRECTOR OF SALES Reason for Call: Hypotension DIRECTOR OF SALES Called By: RN - Respiratory DIRECTOR OF SALES Delivery Method: Nasal Cannula @L/min Oxygen Flow Rate: 5 - Ventilator Settings Ventilator Respiratory Rate Settin Ventilator Tidal Volume Settin Peak Flow: 1 - Medication Medications Administered During DIRECTOR OF SALES: 1000mg Calcium Gluconate. 250ml Bolus. Sodium bicarb. - Diagnostic Test Ordered EKG: Yes (A-fib) Chest X-Ray: No (Ordered Prior to DIRECTOR OF SALES) CPR started during DIRECTOR OF SALES?: No - Vital Signs Vital Signs: BP- 75/45, T- 97.8, HR - 90s, RR - 26 - Vital Signs at end of DIRECTOR OF SALES Vital Signs at end of DIRECTOR OF SALES: BP - 57/35, T- 97.8, HR - 88, RR - 28. 02 Sat-Unreadable. I.Reason for DIRECTOR OF SALES - A) Acute Change in Patient: Subjective: 78 year old male with past medical history of Arthritis, Afib, CHF, COPD, HTN, Hypothyroidism, PE, PVD, Schizophrenia. Rapid response called for a Hypotension with systolics in the 70's and lethargy. Patient was admitted for left foot gangreene. Patient was not alert and arousable to tactile stimuli. Patient just finished getting getting insulin, and d50 due to elevated potassium lvls. Patient also just received a 250ml bolus of fluids due to his hypotension. kayexelate was ordered and could not be given due to poor oral intake. - Neurological Status (Select all that apply): Responsive (Tactile Stimuli. ), Disoriented, Confused, Lethargic. absent: Alert, Oriented, Verbal, Follows Commands - Respiratory Oxygen Delivery Method: Nasal Cannula @L/min (5) - Constitutional Appears: Toxic, In Acute Distress, Confused, Cachectic, Chronically Ill - Head Head Exam: ATRAUMATIC, NORMAL INSPECTION - Respiratory Exam Respiratory Exam: Accessory Muscle Use - Cardiovascular Exam Cardiovascular Exam: Irregular Rhythm, +S1, +S2 - GI/Abdominal Exam GI & Abdominal Exam: Soft. absent: Tenderness - Extremities Exam Additional comments: gangrenous left foot. Plan - Assessment of Findings&Treatment Plan Hypotension. -Additional 250ml Bolus Calcium Gluconate Sodium Bicarb EKG Morphine 2 Q2 PRN Dispo: Prognosis is poor Brother (Adelfo Tijerina), and [id number] (Ana Maria Tijerina) notified and was spoken to by Attendings Dr. Osorio/Dr. Pizarro and chaplain Freedman. Family was notified of the reason for the rapid response and what we did for intervention. They were told that the prognosis is very poor for the patient. They were asked the goals of care. We were told by Adelfo Breezy that he would like to make him comfortable as possible and confirmed his DNR/DNI status. Attending physician was also contacted and spoken with. He would like ICU to be contacted for possible evaluation.
--- NOTE | 2018-09-23 09:39 | RAD ---
Date of service: 09/23/2018 HISTORY: Fluid Overload Assessment. COMPARISON: 09/21/2018. FINDINGS: LUNGS: The lungs are hyperinflated and there is peribronchial thickening with chronic changes in both lungs. There is mild pulmonary venous congestion and interstitial pulmonary edema PLEURA: Worsening left pleural effusion with layering along the left lateral chest wall. Small right pleural effusion. No pneumothorax. CARDIOVASCULAR: Persistent moderate cardiomegaly. There are aortic atherosclerotic calcifications present. OSSEOUS STRUCTURES: Within normal limits for the patient's age. VISUALIZED UPPER ABDOMEN: Normal. OTHER FINDINGS: None. IMPRESSION: Worsening left pleural effusion. Background of COPD.
[2018-09-23 09:48] LABS: ABG ALLEN TEST POS; ARTERIAL BLOOD GAS HCO3 21.2 mmol/L (21-28); ARTERIAL BLOOD GAS O2 SAT 97.3 % (95-98); ARTERIAL BLOOD GAS PCO2 32 mm/Hg (35-45); ARTERIAL BLOOD GAS PH 7.39 (7.35-7.45); ARTERIAL BLOOD GAS PO2 71 mm/Hg (80-100); ARTERIAL BLOOD GAS TCO2 20.4 mmol/L (22-28)
--- NOTE | 2018-09-23 10:20 | CP.PCM.CON ---
History of Present Illness - History of Present Illness History of Present Illness: Palliative consult requested by Doctor Jaime Collins for goals of care discussion Patient is a 78 yo male known to me from previous admission, admitted from [place] with decreased appetite and Left foot pain X 1 day. At the last recent admission patient was treated for the similar symptoms , diagnosed with severe PVD and amputation was suggested by Doctor Kel. Patient declined all interventions requesting only pain meds and return to [place]. At that time I spoke to patient's brother, and made him aware of severity of his brother's condition. The brother stated understanding but also felt helpless as patient never accepted his help in the past nor wanted to be given advice. On this admission WBC 17.0, ID consult called and Vanco and Zosyn IV started. Patient had no pedal pulses palpable on admission. He complained of severe pain to B/L LEs and Oxycodone IR 10 mg Q 4 hr PRN was initiated. K 7.0 on admission. K Exalate ordered. Earlier this morning, patient's SBP dropped to < 80, FIRE ALARM OPERATOR called. Patient is DNR/DNI as per POLST on chart. Patient given IVF bolus with no significant improvement in condition. Condition looked grave. Patient' brother and sister in law made aware that patient may soon. PMH: CHF, A Fib, COPD, PE, PVD Soc. Hx: single, [place] resident, brother and sister in law closest family members Fam. Hx: unknown Review of Systems - Review of Systems Systems not reviewed;Unavailable: Acuity of Condition All systems: reviewed and no additional remarkable complaints except Review of Systems: ROS unobtainable from the patient due severe acute condition. FIRE ALARM OPERATOR still at bed side, patient severely hypotensive. Past Patient History - Infectious Disease Hx of Infectious Diseases: None - Past Medical History & Family History Past Medical History?: Yes - Past Social History Smoking Status: Light Smoker < 10 Cigarettes Daily - CARDIAC Hx Cardiac Disorders: Yes Hx Atrial Fibrillation: Yes Hx Congestive Heart Failure: Yes Hx Hypertension: Yes Hx Pacemaker: No - PULMONARY Hx Respiratory Disorders: Yes Hx Chronic Obstructive Pulmonary Disease (COPD): Yes (emphysema (per CT/chest)) Hx Pulmonary Embolism: Yes - NEUROLOGICAL Hx Neurological Disorder: No Hx Dementia: Yes - HEENT Hx HEENT Problems: No - RENAL Hx Chronic Kidney Disease: No - ENDOCRINE/METABOLIC Hx Endocrine Disorders: Yes Hx Hypothyroidism: Yes - HEMATOLOGICAL/ONCOLOGICAL Hx Blood Disorders: No Hx Cancer: No - INTEGUMENTARY Hx Dermatological Problems: Yes Other/Comment: LEFT FOOT NECROSIS - MUSCULOSKELETAL/RHEUMATOLOGICAL Hx Musculoskeletal Disorders: Yes Hx Arthritis: Yes (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; BACK NECK) Hx Falls: No - GASTROINTESTINAL Hx Gastrointestinal Disorders: Yes Hx Gastroesophageal Reflux: Yes - GENITOURINARY/GYNECOLOGICAL Hx Genitourinary Disorders: No - PSYCHIATRIC Hx Substance Use: No - SURGICAL HISTORY Hx Tonsillectomy: Yes - ANESTHESIA Hx Anesthesia: No Meds Allergies/Adverse Reactions: Allergies Allergy/AdvReac Type Severity Reaction Status Date / Time No Known Allergies Allergy Verified 09/21/18 13:01 - Medications Medications: Current Medications Albuterol/Ipratropium (Duoneb 3 Mg/0.5 Mg (3 Ml) Ud) 3 ml INH Q6 PRN PRN Reason: Shortness of Breath Docusate Sodium (Colace) 100 mg PO DAILY [facility] Last Admin: 09/22/18 12:40 Dose: 100 mg Enoxaparin Sodium (Lovenox) 40 mg SC DAILY [facility] Last Admin: 09/22/18 12:38 Dose: Not Given Famotidine (Pepcid) 20 mg PO DAILY [facility] Last Admin: 09/22/18 12:37 Dose: 20 mg Gabapentin (Neurontin) 100 mg PO BID [facility] Last Admin: 09/22/18 19:15 Dose: 100 mg Piperacillin Sod/Tazobactam Sod (Zosyn 3.375 Gm Iv Premix) 3.375 gm in 50 mls @ 100 mls/hr IVPB Q6H [facility]; Protocol Last Admin: 09/23/18 06:23 Dose: 100 mls/hr Vancomycin HCl 750 mg/ Sodium (Chloride) 250 mls @ 166.667 mls/hr IVPB Q24H [facility] Stop: 10/12/18 14:29 Last Admin: 09/22/18 13:02 Dose: 166.667 mls/hr Sodium Chloride (Sodium Chloride 0.9%) 1,000 mls @ 250 mls/hr IV .Q4H ONE Stop: 09/23/18 11:16 Last Admin: 09/23/18 07:58 Dose: 250 mls/hr Lactobacillus Acidophilus (Lactobacillus) 1 cap PO BID [facility] Last Admin: 09/22/18 19:14 Dose: 1 cap Levothyroxine Sodium (Synthroid) 75 mcg PO DAILY@0630 [facility] Last Admin: 09/23/18 06:23 Dose: 75 mcg Magnesium Hydroxide (Milk Of Magnesia) 30 ml PO HS PRN PRN Reason: No bowel movement after 3 days Metoprolol Tartrate (Lopressor) 25 mg PO BID [facility] Last Admin: 09/22/18 19:15 Dose: 25 mg Multivitamins (Hexavitamin) 1 tab PO DAILY [facility] Last Admin: 09/22/18 12:37 Dose: 1 tab Oxycodone HCl (Oxycodone Immediate Release Tab) 10 mg PO Q4H PRN PRN Reason: Pain, moderate (4-7) Last Admin: 09/22/18 22:56 Dose: 10 mg Pantoprazole Sodium (Protonix Ec Tab) 40 mg PO DAILY [facility] Last Admin: 09/22/18 12:36 Dose: 40 mg Sodium Bicarbonate (Sodium Bicarbonate Tab) 650 mg PO Q6 [facility] Last Admin: 09/23/18 06:24 Dose: 650 mg Warfarin Sodium (Coumadin) 2 mg PO QPM [facility] Last Admin: 09/21/18 18:05 Dose: 2 mg Physical Exam - Constitutional Appears: In Acute Distress, Chronically Ill - Head Exam Head Exam: ATRAUMATIC, NORMAL INSPECTION, NORMOCEPHALIC - Eye Exam Eye Exam: EOMI, Normal appearance, PERRL Pupil Exam: NORMAL ACCOMODATION, PERRL - ENT Exam ENT Exam: Mucous Membranes Dry - Neck Exam Neck exam: Positive for: Normal Inspection - Respiratory Exam Respiratory Exam: Decreased Breath Sounds - Cardiovascular Exam Cardiovascular Exam: Tachycardia, Irregular Rhythm - GI/Abdominal Exam GI & Abdominal Exam: Normal Bowel Sounds, Soft - Rectal Exam Rectal Exam: Deferred - Extremities Exam Additional comments: severe discoloration to B/L LEs. pedal pulses not palpable - Back Exam Back exam: NORMAL INSPECTION - Neurological Exam Neurological exam: Motor Sensory Deficit - Psychiatric Exam Psychiatric exam: Flat Affect - Skin Skin Exam: Cyanosis, Erythema, Mottled, Pallor, Pallor, Petechiae Results - Vital Signs Recent Vital Signs: Last Vital Signs Temp 97.6 F 09/23/18 07:00 Pulse 114 H 09/23/18 07:00 Resp 18 09/23/18 07:00 BP 82/45 L 09/23/18 07:00 Pulse Ox 96 09/22/18 23:30 - Labs Result Diagrams: 09/23/18 06:33 09/23/18 06:33 Labs: Laboratory Results - last 24 hr 09/23/18 09/23/18 09/23/18 06:33 06:33 09:45 WBC 13.1 H RBC 3.57 L Hgb 10.3 L Hct 32.8 L MCV 91.8 MCH 28.9 MCHC 31.5 L RDW 16.3 H Plt Count 153 MPV 9.1 Neut % (Auto) 87.3 H Lymph % (Auto) 5.9 L [place] % (Auto) 6.5 Eos % (Auto) 0.1 Baso % (Auto) 0.2 Neut # (Auto) 11.5 H Lymph # (Auto) 0.8 L [place] # (Auto) 0.9 H Eos # (Auto) 0.0 Baso # (Auto) 0.0 Neutrophils % (Manual) 89 H Lymphocytes % (Manual) 6 L Monocytes % (Manual) 5 Platelet Estimate Normal Hypochromasia (manual) Slight Poikilocytosis (manual Slight Anisocytosis (manual) Slight Target Cells Slight [place] Cells Slight Puncture Site Rra pCO2 32 L pO2 71 L HCO3 21.2 ABG pH 7.39 ABG Total CO2 20.4 L ABG O2 Saturation 97.3 ABG Base Excess -4.6 L Chance Test Pos ABG Potassium 6.5 H* Glucose 141 H Lactate 3.2 H Crit Value Called To Dr anand Crit Value Called By Khari shipley continuity person Crit Value Read Back Y Blood Gas Notified Time 948 Sodium 137 139.0 Potassium 7.0 H* D Chloride 110 H 115.0 H Carbon Dioxide 19 L Anion Gap 15 BUN 52 H Creatinine 1.7 H Est GFR ( Amer) 48 Est GFR (Non-Af Amer) 39 Random Glucose 71 L D Calcium 9.7 Magnesium 1.9 Total Bilirubin 1.5 H Direct Bilirubin 1.1 H AST 2922 H ALT 653 H D Alkaline Phosphatase 91 Total Protein 6.2 L Albumin 3.1 L Globulin 3.1 Albumin/Globulin Ratio 1.0 Arterial Blood Potassium 6.5 H* Assessment & Plan - Assessment and Plan (Free Text) Assessment: Palliative consult DNR/DNI, POLST on chart, PPS < 10 % I reviewed all medical records, diagnostic studies, examined patient in the bed Patient is unresponsive to stimuli, skin very pale , in acute distress. FIRE ALARM OPERATOR at bed side for severly low BP. Please see FIRE ALARM OPERATOR report. Patient is not responding to IVF bolus, due to sepsis. Condition is seen as terminal. Doctor Jo spoke to family, brother in sister in law informing them that patient may in few hours. I spoke to sister in law ( Breezy Rodgers ) too, who was also very involved and cooperative in the past when I discussed patient's condition with her and her . She stated understanding and sorrow. Mrs. Tijerina also stated that her and her will try to get here as soon as possible. They do not drive and do not own the car. Her is legally blind. I reassured her that we will make sure patient was kept comfortable to his last breath. Doctor Jaime collins made aware of patient's condition. Impression * Severe hypotension 2nd to sepsis * Necrosis of both feet * prognosis terminal, approaching end of life * Brother and sister in law informed and will come over as soon as possible * Patient is DNR/DNI, POLST on chart, no surrogate decision maker identified Suggestion * Promote comfort * Allow natural * Would stop all further diagnostic studies Palliative care will sign off at this time.
[2018-09-23] MEDS ORDERED: Dextrose 5%/0.45% NS 1,000 ML IV SCH (10:45)
--- NOTE | 2018-09-23 11:55 | CP.PCM.PN ---
Subjective - Date & Time of Evaluation Date of Evaluation: 09/23/18 Time of Evaluation: 11:53 - Subjective Subjective: Maribell Washington PGY-1, Cardiology Progress Note for Dr. Corea Patient was seen and evaluated at bedside. Patient had rapid response called for potassium of 7 and agonal breathing. Patient's family was contacted and patient was made hospice. Patient is AAOx0 at bedside. Objective - Vital Signs/Intake and Output Vital Signs (last 24 hours): Temp Pulse Resp BP Pulse Ox 97.6 F 114 H 18 82/45 L 96 09/23/18 07:00 09/23/18 07:00 09/23/18 07:00 09/23/18 07:00 09/22/18 23:30 - Medications Medications: Current Medications Albuterol/Ipratropium (Duoneb 3 Mg/0.5 Mg (3 Ml) Ud) 3 ml INH Q6 PRN PRN Reason: Shortness of Breath Docusate Sodium (Colace) 100 mg PO DAILY [facility] Last Admin: 09/22/18 12:40 Dose: 100 mg Enoxaparin Sodium (Lovenox) 40 mg SC DAILY [facility] Last Admin: 09/22/18 12:38 Dose: Not Given Famotidine (Pepcid) 20 mg PO DAILY [facility] Last Admin: 09/22/18 12:37 Dose: 20 mg Gabapentin (Neurontin) 100 mg PO BID [facility] Last Admin: 09/22/18 19:15 Dose: 100 mg Piperacillin Sod/Tazobactam Sod (Zosyn 3.375 Gm Iv Premix) 3.375 gm in 50 mls @ 100 mls/hr IVPB Q6H [facility]; Protocol Last Admin: 09/23/18 06:23 Dose: 100 mls/hr Vancomycin HCl 750 mg/ Sodium (Chloride) 250 mls @ 166.667 mls/hr IVPB Q24H [facility] Stop: 10/12/18 14:29 Last Admin: 09/22/18 13:02 Dose: 166.667 mls/hr Dextrose/Sodium Chloride (Dextrose 5%/0.45% Ns 1000 Ml) 1,000 mls @ 40 mls/hr IV .Q24H [facility] Last Admin: 09/23/18 11:42 Dose: 40 mls/hr Lactobacillus Acidophilus (Lactobacillus) 1 cap PO BID [facility] Last Admin: 09/22/18 19:14 Dose: 1 cap Levothyroxine Sodium (Synthroid) 75 mcg PO DAILY@0630 [facility] Last Admin: 09/23/18 06:23 Dose: 75 mcg Magnesium Hydroxide (Milk Of Magnesia) 30 ml PO HS PRN PRN Reason: No bowel movement after 3 days Metoprolol Tartrate (Lopressor) 25 mg PO BID [facility] Last Admin: 09/22/18 19:15 Dose: 25 mg Multivitamins (Hexavitamin) 1 tab PO DAILY [facility] Last Admin: 09/22/18 12:37 Dose: 1 tab Oxycodone HCl (Oxycodone Immediate Release Tab) 10 mg PO Q4H PRN PRN Reason: Pain, moderate (4-7) Last Admin: 09/22/18 22:56 Dose: 10 mg Pantoprazole Sodium (Protonix Ec Tab) 40 mg PO DAILY [facility] Last Admin: 09/22/18 12:36 Dose: 40 mg Sodium Bicarbonate (Sodium Bicarbonate Tab) 650 mg PO Q6 [facility] Last Admin: 09/23/18 06:24 Dose: 650 mg Warfarin Sodium (Coumadin) 2 mg PO QPM [facility] Last Admin: 09/21/18 18:05 Dose: 2 mg - Labs Labs: 09/23/18 06:33 09/23/18 06:33 PT 37.0 SECONDS (9.7-12.2) H D 09/22/18 07:11 INR 3.4 H* D 09/22/18 07:11 APTT 44 SECONDS (21-34) H 09/21/18 13:47 - Constitutional Appears: Non-toxic, Agitated, Confused, Cachectic - Head Exam Head Exam: ATRAUMATIC, NORMAL INSPECTION, NORMOCEPHALIC - Eye Exam Eye Exam: EOMI, PERRL - ENT Exam ENT Exam: Mucous Membranes Dry - Respiratory Exam Respiratory Exam: Clear to Auscultation Bilateral, agonal breathing pattern - Cardiovascular Exam Cardiovascular Exam: Tachycardia, Irregular Rhythm - GI/Abdominal Exam GI & Abdominal Exam: Normal Bowel Sounds, Soft. absent: Tenderness - Extremities Exam Additional comments: left lower extremity was reddened with absent pulses and cool extremity. Right lower extremity had 2nd metatarsal reddened. Faint pulse was present, but lower extremity was cool as well. left lower extremity redness has increased to above to knee. - Neurological Exam Neurological exam: Alert (AAOx0), CN II-XII Intact (grossly) - Skin Skin Exam: Pallor Additional comments: left lower extremity was reddened with absent pulses and cool extremity. Right lower extremity had 2nd metatarsal reddened. Faint pulse was present, but lower extremity was cool as well. left lower extremity redness has increased to above to knee. Assessment and Plan - Assessment and Plan (Free Text) Assessment: PAD with gangrene Atrial fibrillation on coumadin Congestive heart failure Hypertension Hypothyroidism History of pulmonary embolism Plan: PAD with gangrene Atrial fibrillation on coumadin Congestive heart failure Hypertension Hypothyroidism History of pulmonary embolism Last angiogram in 08/2018 showed left lower extremity with moderate calcific plaque in the aorta, moderate stenosis of the proximal left common iliac artery with severe calcific plaque of the common iliac artery on the right. There is moderate stenosis of right external iliax and right common iliac artery. Left lower extreimty showed severe calcific plaque of the common femoral artery with severe stenosis, occlusion of the left SFA with reconstituted popliteal artery, severe calcification throughout the SFA, moderate stenosis of the popliteal artery. EKG: shows atrial fibrillation with RVR with HR: 114 CXR: no efffusions appreciated INR: 3.4 Patient has now been made hospice care. Continue with comfort measures at this time. Medications: Synthyroid 75 mcg daily Vancomycin Zosyn Warfarin held due to supratherapeutic INR Lopressor 25 mg BID
[2018-09-23 12:01] LABS: INR 4.6; PROTHROMBIN TIME 50.7 SECONDS (9.7-12.2)
[2018-09-23] MEDS: Multiple Vitamins Tab PO SCH (14:18)
[2018-09-23] MEDS: Lactobacillus Acidophilus 500 MU Cap PO SCH (14:19)
[2018-09-23] MEDS: Enoxaparin 40 mg Syringe SC SCH (14:20)
[2018-09-23] MEDS: Pantoprazole 40 mg EC Tab PO SCH (14:21)
[2018-09-23 14:32] VITALS: BP 61/39
--- NOTE | 2018-09-23 15:08 | CP.PCM.PRO ---
Pronouncement of Note - Clinical Findings Physical Exam: No Response Verbal/Painful Stimuli, Absent Peripheral Puls es{Carotid & Femoral}, Absent Heart & Breath Sounds, No Pupillary Light Reflex, Pupils Fixed & Dilated - Pronouncement Time Time of Pronouncement of : 15:02 - Notifications Pronouncement Notifications: Family Notified (Family at bedside.), Atending Notified
[2018-09-23 17:29] VITALS: PULSE 78
== END 2018-09-23 15:02 | DRG 871 ==
LOC: C.ER 12:36 → C.9E 15:12 → C.6T 16:25
PROVIDERS: ADMIT Internal Medicine Nephrology; ATTEND Internal Medicine Nephrology
DX: A41.9 Sepsis, unspecified organism (principal); J18.9 Pneumonia, unspecified organism; I70.268 Atherosclerosis of native arteries of extremities with gangrene, other extremity; J44.0 Chronic obstructive pulmonary disease with (acute) lower respiratory infection; N39.0 Urinary tract infection, site not specified; E46 Unspecified protein-calorie malnutrition; R65.20 Severe sepsis without septic shock; I11.0 Hypertensive heart disease with heart failure; F03.90 Unspecified dementia, unspecified severity, without behavioral disturbance, psychotic disturbance, mood disturbance, and anxiety; F20.9 Schizophrenia, unspecified; I95.9 Hypotension, unspecified; I50.9 Heart failure, unspecified; Z51.5 Encounter for palliative care; Z74.01 Bed confinement status; K59.00 Constipation, unspecified; R62.7 Adult failure to thrive; I48.91 Unspecified atrial fibrillation; Z66 Do not resuscitate; Z86.711 Personal history of pulmonary embolism; E03.9 Hypothyroidism, unspecified; L98.499 Non-pressure chronic ulcer of skin of other sites with unspecified severity; F10.10 Alcohol abuse, uncomplicated; F17.210 Nicotine dependence, cigarettes, uncomplicated